=== PATIENT | male | born 1950 | race Caucasian/White ===

== ENCOUNTER 2020-01-29 09:22 | Outpatient (REF) | payer MEDICARE, OTHER, SELFPAY | END 2020-01-29 09:23 | disposition home or self-care (01) | LOC: HO.BBR 09:22 | PROVIDERS: PCP Nurse Practitioner Family; Visit Provider Internal Medicine Medical Oncology | DX: E83.110 Hereditary hemochromatosis (principal) | CPT/HCPCS: 99195 ==

== ENCOUNTER 2020-01-29 09:40 | Outpatient (REF) | payer MEDICARE, OTHER, SELFPAY | END 2020-01-29 09:41 | disposition home or self-care (01) | LOC: HO.BBR 09:40 | PROVIDERS: Visit Provider Internal Medicine Medical Oncology | DX: E83.110 Hereditary hemochromatosis (principal) ==

== ENCOUNTER 2020-02-26 09:25 | Outpatient (REF) | payer MEDICARE, OTHER, SELFPAY | END 2020-02-26 09:26 | disposition home or self-care (01) | LOC: HO.BBR 09:25 | PROVIDERS: PCP Nurse Practitioner Family; Visit Provider Internal Medicine Medical Oncology | DX: E83.110 Hereditary hemochromatosis (principal) | CPT/HCPCS: 99195 ==

== ENCOUNTER 2020-03-02 09:18 | Outpatient (REF) | payer MEDICARE, OTHER, SELFPAY ==
--- NOTE | 2020-03-02 09:21 | CT_ITS ---
EXAMINATION: CT CHEST SCREENING CLINICAL INFORMATION: Lung cancer screening COMPARISON: Previous exams most recent January 2019 TECHNIQUE: Multidetector volumetric CT imaging of the chest is performed without contrast using low dose technique. Additional 2D coronal and sagittal reformatted images and axial 3D maximum intensity projection (MIP) images are generated on the CT workstation. This CT examination was performed using dose optimization techniques as appropriate, variously including the following: *Automated exposure control *Adjustment of mA and/or kV according to patient size (this includes techniques or standardized protocols for targeted exams where dose is matched to indication/reason for exam; i.e. extremities or head) *Use of iterative reconstruction technique DLP: 45 mGy-cm FINDINGS: LUNGS: There is evidence of emphysema. The small pulmonary nodules are stable, largest measuring 3 x 4 mm right lower lobe axial image 281 series 6. There are new clustered small nodules in the right lower lobe, largest measuring 3 mm axial image 413 series 6 and left lower lobe for example axial image 232 series 5. Clustered appearance favors airways disease. No other new pulmonary nodules are seen. There is improving atelectasis or small infiltrate in the inferior segment of the lingula. MEDIASTINUM: There is evidence of atherosclerotic disease with aortic and mild coronary artery calcification. The mediastinum is otherwise normal. PLEURA: There is no pleural effusion. No pleural mass or thickening. AXILLA: No lymphadenopathy. UPPER ABDOMEN: Unremarkable OSSEOUS STRUCTURES: There are degenerative changes of the spine. CT/CT lung screening IMPRESSION: Severe emphysema. New small clustered bilateral lower lobe pulmonary nodules with tree-in-bud appearance suggestive of an infectious or inflammatory process. Other small pulmonary nodules are stable. Improving atelectasis or airspace disease in the inferior segment of the lingula. Mild atherosclerotic disease and coronary artery calcification. ASSESSMENT: Lung-RADS category 2: Benign RECOMMENDATION: Annual low-dose chest CT follow-up recommended.
== END 2020-03-02 09:19 | disposition home or self-care (01) ==
LOC: HO.CT 09:18
PROVIDERS: Visit Provider Surgery
DX: Z12.2 Encounter for screening for malignant neoplasm of respiratory organs (principal); F17.210 Nicotine dependence, cigarettes, uncomplicated
CPT/HCPCS: 71250

== ENCOUNTER 2020-04-02 11:20 | Outpatient (REF) | payer MEDICARE, OTHER, SELFPAY ==
[2020-04-02 12:04] LABS: Influenza A PCR NEGATIVE (Negative); Influenza B PCR NEGATIVE (Negative); Resp Syncy Virus RNA Qual PCR NEGATIVE (Negative); SARS COV2 PCR INHOUSE NEGATIVE (Negative)
== END 2020-04-02 11:21 | disposition home or self-care (01) ==
LOC: HO.LAB 11:20
PROVIDERS: Visit Provider Nurse Practitioner Family
DX: R06.89 Other abnormalities of breathing (principal); R68.83 Chills (without fever); Z20.828 Contact with and (suspected) exposure to other viral communicable diseases
CPT/HCPCS: 0241U

== ENCOUNTER 2020-05-08 10:13 | Inpatient (IN) | payer MEDICARE, OTHER, SELFPAY ==
[2020-05-08] VITALS (12 sets, daily range): BP systolic 78–120; BP diastolic 32–71; PULSE 74–94; RESP 17–24; TEMP 36–37.1; O2SAT 90–100; BMI 22.3
--- NOTE | 2020-05-08 10:17 | ECG_ITS ---
Test Reason : SOB Blood Pressure : / mmHG Vent. Rate : 087 BPM Atrial Rate : 087 BPM P-R Int : 128 ms QRS Dur : 100 ms QT Int : 380 ms P-R-T Axes : 069 053 058 degrees QTc Int : 457 ms Normal sinus rhythm Normal ECG When compared with ECG of 24-AUG-2016 12:50, No significant change was found Referred By: Mary Givens Electronically Signed By:ANALI AGUILAR MD
--- NOTE | 2020-05-08 10:18 | XR_ITS ---
EXAMINATION: XR CHEST CLINICAL INFORMATION: AMS. COMPARISON: CT chest 03/02/2020 TECHNIQUE: Frontal view of the chest was obtained. FINDINGS: The lungs are well-inflated with the increased interstitial markings in both lungs and scattered patchy opacities as well. No confluent infiltrate or pleural effusion seen. Heart size and pulmonary vascularity is normal. No gross bony abnormality seen. XR/XR chest 1V IMPRESSION: Bilateral increase interstitial markings and patchy opacity suggestive of interstitial pneumonitis. No confluent infiltrate or pleural effusion seen.
--- NOTE | 2020-05-08 10:19 | ED.AMS ---
HPI - Altered Mental Status General Chief Complaint: Altered Mental Status Stated Complaint: stroke alert Time Seen by Provider: 05/08/20 10:17 Source: patient and EMS Mode of arrival: EMS Limitations: altered mental status History of Present Illness HPI narrative: EMS notes patient last seen well yesterday found by neighbor or caregiver in the recliner O2 sats were in 70s placed on NRB up to mid 90s, patient was diffusely weak, no known trauma, history not really well known per EMS MD complaint: altered mental status Onset (ago): unknown (last seen well yesterday) Timing confirmed by: caregiver Severity: severe Consistency of symptoms: constant Context: other (unknown) Associated symptoms: denies other symptoms Related Data Home Medications Medication Instructions Recorded Confirmed albuterol sulfate [ProAir HFA] 2 puff INHALATION Q6H PRN 05/08/20 05/08/20 aspirin 81 mg PO DAILY 05/08/20 05/08/20 cholecalciferol (vitamin D3) 50 mcg PO DAILY 05/08/20 05/08/20 [Vitamin D3] cyanocobalamin (vitamin B-12) 1,000 mcg PO DAILY 05/08/20 05/08/20 fluticasone propionate [Flovent] 2 puff INHALATION BID 05/08/20 05/08/20 folic acid 1 mg PO DAILY 05/08/20 05/08/20 omega [id number] oil [Fish Oil] 1 cap PO BID 05/08/20 05/08/20 tiotropium bromide [Spiriva 2 puff INHALATION DAILY 05/08/20 05/08/20 Respimat] Previous Rx's Medication Instructions Recorded atorvastatin 40 mg tablet 40 mg PO DAILY #30 tab 03/23/20 lisinopril 10 mg tablet 10 mg PO DAILY #90 tab 04/14/20 Allergies Allergy/AdvReac Type Severity Reaction Status Date / Time bee pollen [BEE STINGS] Allergy Unknown DIF Unverified 01/09/20 14:57 FBREATHING Review of Systems Review of Systems: ROS unable to be obtained due to altered mental status PMFSH Past Medical History Attestation statement: The following information was validated with the patient. Medical History (Updated 05/08/20 @ 14:20 by Mary Givens DO) COPD (chronic obstructive pulmonary disease) ETOH abuse Hemochromatosis Liver cancer Social History Social History (Updated 05/08/20 @ 10:31 by Mary Givens DO) Alcohol intake: current Smoking Status: Current every day smoker Use of substances other than those prescribed or required for medical reasons: Unknown Advance Directives: No Advance Directives Information Provided: No Physical Exam Vital Signs: Vital Signs: Last Vital Signs Temp 98.7 F 05/08/20 13:11 Pulse 76 05/08/20 14:27 Resp 18 05/08/20 14:27 BP 106/44 L 05/08/20 14:27 Pulse Ox 99 05/08/20 14:27 Body Mass Index 22.3 Appearance: Somnolent, disheveled, diffuse weak, confused, moderate acute distress. Eyes: Pupils equal, round and reactive to light. yellowing of sclera ENT: Pharynx very dry Neck: Normal inspection. Neck supple. CVS: Normal heart rate and rhythm. Pulses normal. Respiratory: Moderate respiratory distress peripheral cyanosis. Breath sounds decreased with diffuse wheezes Abdomen: Soft and non-tender. Skin: Skin warm and dry. Normal skin color. Normal skin turgor. Extremities: No lower extremity edema. No calf ttp Neuro: Diffusely weak, opens eyes to voice, squeezed hands, nonverbal No motor deficit. No sensory deficit. Course Course Course Narrative: elevated CO no baseline and Ph is compensated at this time no priors will place on bipap to see if this improves his status empiric zosyn and 30cc/kg bolus ordered fluids infusing, will take off bipap and recheck ABG he seems somewhat more responsive BP 107/71 Pepito does seem to be responding better, ICU Dr. Arias has seen the patient recommends diamox given low Na will discuss with nephrology Na only 125 will admit to medicine, patient still not fully at baseline, no acute findings in chest or UA - no call back from Nephrology discussed with Dr. Jones - seems to be improving at this time, no further recommendations at this time, repeat labs MDM - Altered Mental Status MDM Narrative Medical decision making narrative: 69 yo male with COPD, HCC unsure of status but per Onc notes seems to be stable, last seen yesterday c/o AMS - he was hypoxic on arrival, no obvious trauma, likely FTT and patient is unkempt and disheveled, at this time will need labs, CT head for ICH, ammonia, ABG for CO2 retention, IV steroids, neb treatment, CXR, anticipate admission Lab Data Result diagrams: 05/08/20 10:56 05/08/20 13:51 Labs: Lab Results 05/08/20 05/08/20 05/08/20 Range/Units 10:25 10:26 10:26 WBC (4.8-10.8) X10*3/uL RBC (4.60-5.80) X10*6/uL Hgb (14.0-18.0) g/dl Hct (42-52) % MCV (80-98) fL MCH (27.0-33.0) pg MCHC (31.0-36.0) g/dl RDW (11.0-16.0) % Plt Count (160-400) X10*3/uL MPV (9.4-12.4) fL Immature Gran % (Auto) (0.0-0.4) % Neut % (Auto) (45-73) % Lymph % (Auto) (20-40) % [place]ferro % (Auto) (2-11) % Eos % (Auto) (0-4) % Baso % (Auto) (0-2) % Lymph # (Auto) (1.2-4.9) X10*3/uL [place]ferro # (Auto) (0.1-1.2) X10*3/uL Eos # (Auto) (0.0-0.4) X10*3/uL Baso # (Auto) (0.0-0.2) X10*3/uL Abs Immat Gran (auto) (0.00-0.03) X10*3/uL Absolute Neuts (auto) (2.0-8.3) X10*3/uL Absolute Nucleated RBC (0.0-0.012) X10*3/uL Nucleated RBC % (auto) (0.0-0.2) /100WBC PT (10.8-13.0) SEC INR (0.9-1.1) APTT (24.1-38.0) SEC ABG pH (7.35-7.45) ABG pCO2 (32-45) mmHg ABG pO2 (83-108) mmHg ABG HCO3 (22-26) mmol/L ABG O2 Saturation % ABG Base Excess Oxygen Given Sodium (135-145) mmol/L Potassium (3.3-5.1) mmol/l Chloride (96-108) mmol/L Carbon Dioxide (22-29) mmol/L Anion Gap (12-20) BUN (9-16) mg/dL Creatinine (0.5-1.4) mg/dL Estim Creat Clear Calc Estimated GFR Random Glucose (60-115) mg/dL Lactic Acid (0.5-2.0) mmol/L Calcium (8.4-10.2) mg/dL Magnesium (1.6-2.6) mg/dL Ferritin (20-250) ng/mL Total Bilirubin (0.0-1.0) mg/dL Direct Bilirubin (0.0-0.5) mg/dL AST (5-37) U/L ALT (0-40) U/L Alkaline Phosphatase (39-117) U/L Ammonia 34 (13-55) umol/L Lactate Dehydrogenase (118-273) U/L Total Creatine Kinase (38-174) U/L Troponin I High Sens 12.5 (<3.5-35.0) ng/L B-Natriuretic Peptide 31 (<100) pg/mL Total Protein (6.5-8.0) g/dL Albumin (3.5-5.0) g/dL Lipase (8-78) U/L Procalcitonin ng/mL TSH (0.32-4.0) uIU/mL Urine Color Urine Appearance Urine pH (5.0-8.0) Ur Specific Wallace (1.005-1.025) Urine Protein (NEG-TRACE) MG/DL Urine Glucose (UA) (NEG) MG/DL Urine Ketones (NEG) MG/DL Urine Blood (NEG) Urine Nitrite (NEG) Ur Leukocyte Esterase (NEG) Salicylates (15-30) mg/dL Urine Opiates Screen (Not Detect) Ur Barbiturates Screen (Not Detect) Ur Phencyclidine Scrn (Not Detect) Ur Amphetamines Screen (Not Detect) U Benzodiazepines Scrn (Not Detect) Urine Cocaine Screen (Not Detect) U Marijuana (THC) Screen (Not Detect) Ethyl Alcohol mg/dL COVID-19 (RAHUL) (Negative) COVID-19 Clin Com 05/08/20 05/08/20 05/08/20 Range/Units 10:26 10:26 10:28 WBC (4.8-10.8) X10*3/uL RBC (4.60-5.80) X10*6/uL Hgb (14.0-18.0) g/dl Hct (42-52) % MCV (80-98) fL MCH (27.0-33.0) pg MCHC (31.0-36.0) g/dl RDW (11.0-16.0) % Plt Count (160-400) X10*3/uL MPV (9.4-12.4) fL Immature Gran % (Auto) (0.0-0.4) % Neut % (Auto) (45-73) % Lymph % (Auto) (20-40) % [place]ferro % (Auto) (2-11) % Eos % (Auto) (0-4) % Baso % (Auto) (0-2) % Lymph # (Auto) (1.2-4.9) X10*3/uL [place]ro # (Auto) (0.1-1.2) X10*3/uL Eos # (Auto) (0.0-0.4) X10*3/uL Baso # (Auto) (0.0-0.2) X10*3/uL Abs Immat Gran (auto) (0.00-0.03) X10*3/uL Absolute Neuts (auto) (2.0-8.3) X10*3/uL Absolute Nucleated RBC (0.0-0.012) X10*3/uL Nucleated RBC % (auto) (0.0-0.2) /100WBC PT 11.5 (10.8-13.0) SEC INR 1.0 (0.9-1.1) APTT 25.4 (24.1-38.0) SEC ABG pH (7.35-7.45) ABG pCO2 (32-45) mmHg ABG pO2 (83-108) mmHg ABG HCO3 (22-26) mmol/L ABG O2 Saturation % ABG Base Excess Oxygen Given Sodium (135-145) mmol/L Potassium (3.3-5.1) mmol/l Chloride (96-108) mmol/L Carbon Dioxide (22-29) mmol/L Anion Gap (12-20) BUN (9-16) mg/dL Creatinine (0.5-1.4) mg/dL Estim Creat Clear Calc Estimated GFR Random Glucose (60-115) mg/dL Lactic Acid 1.0 (0.5-2.0) mmol/L Calcium (8.4-10.2) mg/dL Magnesium (1.6-2.6) mg/dL Ferritin (20-250) ng/mL Total Bilirubin (0.0-1.0) mg/dL Direct Bilirubin (0.0-0.5) mg/dL AST (5-37) U/L ALT (0-40) U/L Alkaline Phosphatase (39-117) U/L Ammonia (13-55) umol/L Lactate Dehydrogenase (118-273) U/L Total Creatine Kinase (38-174) U/L Troponin I High Sens (<3.5-35.0) ng/L B-Natriuretic Peptide (<100) pg/mL Total Protein (6.5-8.0) g/dL Albumin (3.5-5.0) g/dL Lipase (8-78) U/L Procalcitonin 0.05 ng/mL TSH (0.32-4.0) uIU/mL Urine Color Urine Appearance Urine pH (5.0-8.0) Ur Specific Wallace (1.005-1.025) Urine Protein (NEG-TRACE) MG/DL Urine Glucose (UA) (NEG) MG/DL Urine Ketones (NEG) MG/DL Urine Blood (NEG) Urine Nitrite (NEG) Ur Leukocyte Esterase (NEG) Salicylates (15-30) mg/dL Urine Opiates Screen (Not Detect) Ur Barbiturates Screen (Not Detect) Ur Phencyclidine Scrn (Not Detect) Ur Amphetamines Screen (Not Detect) U Benzodiazepines Scrn (Not Detect) Urine Cocaine Screen (Not Detect) U Marijuana (THC) Screen (Not Detect) Ethyl Alcohol mg/dL COVID-19 (RAHUL) (Negative) COVID-19 Clin Com 05/08/20 05/08/20 05/08/20 Range/Units 10:33 10:39 10:56 WBC 7.1 (4.8-10.8) X10*3/uL RBC 3.91 L (4.60-5.80) X10*6/uL Hgb 13.2 L (14.0-18.0) g/dl Hct 36.0 L (42-52) % MCV 92.1 (80-98) fL MCH 33.8 H (27.0-33.0) pg MCHC 36.7 H (31.0-36.0) g/dl RDW 13.2 (11.0-16.0) % Plt Count 163 (160-400) X10*3/uL MPV 9.4 (9.4-12.4) fL Immature Gran % (Auto) 1.5 H (0.0-0.4) % Neut % (Auto) 70.5 (45-73) % Lymph % (Auto) 14.9 L (20-40) % [place]ferro % (Auto) 12.7 H (2-11) % Eos % (Auto) 0.1 (0-4) % Baso % (Auto) 0.3 (0-2) % Lymph # (Auto) 1.1 L (1.2-4.9) X10*3/uL [place]ro # (Auto) 0.9 (0.1-1.2) X10*3/uL Eos # (Auto) 0.0 (0.0-0.4) X10*3/uL Baso # (Auto) 0.0 (0.0-0.2) X10*3/uL Abs Immat Gran (auto) 0.11 H (0.00-0.03) X10*3/uL Absolute Neuts (auto) 5.0 (2.0-8.3) X10*3/uL Absolute Nucleated RBC 0.000 (0.0-0.012) X10*3/uL Nucleated RBC % (auto) 0.0 (0.0-0.2) /100WBC PT (10.8-13.0) SEC INR (0.9-1.1) APTT (24.1-38.0) SEC ABG pH 7.49 H (7.35-7.45) ABG pCO2 60 H* (32-45) mmHg ABG pO2 68 L (83-108) mmHg ABG HCO3 46 H (22-26) mmol/L ABG O2 Saturation 89.0 % ABG Base Excess 19.7 Oxygen Given ROOM AIR Sodium (135-145) mmol/L Potassium (3.3-5.1) mmol/l Chloride (96-108) mmol/L Carbon Dioxide (22-29) mmol/L Anion Gap (12-20) BUN (9-16) mg/dL Creatinine (0.5-1.4) mg/dL Estim Creat Clear Calc Estimated GFR Random Glucose (60-115) mg/dL Lactic Acid (0.5-2.0) mmol/L Calcium (8.4-10.2) mg/dL Magnesium (1.6-2.6) mg/dL Ferritin (20-250) ng/mL Total Bilirubin (0.0-1.0) mg/dL Direct Bilirubin (0.0-0.5) mg/dL AST (5-37) U/L ALT (0-40) U/L Alkaline Phosphatase (39-117) U/L Ammonia (13-55) umol/L Lactate Dehydrogenase (118-273) U/L Total Creatine Kinase (38-174) U/L Troponin I High Sens (<3.5-35.0) ng/L B-Natriuretic Peptide (<100) pg/mL Total Protein (6.5-8.0) g/dL Albumin (3.5-5.0) g/dL Lipase (8-78) U/L Procalcitonin ng/mL TSH (0.32-4.0) uIU/mL Urine Color Urine Appearance Urine pH (5.0-8.0) Ur Specific Wallace (1.005-1.025) Urine Protein (NEG-TRACE) MG/DL Urine Glucose (UA) (NEG) MG/DL Urine Ketones (NEG) MG/DL Urine Blood (NEG) Urine Nitrite (NEG) Ur Leukocyte Esterase (NEG) Salicylates (15-30) mg/dL Urine Opiates Screen (Not Detect) Ur Barbiturates Screen (Not Detect) Ur Phencyclidine Scrn (Not Detect) Ur Amphetamines Screen (Not Detect) U Benzodiazepines Scrn (Not Detect) Urine Cocaine Screen (Not Detect) U Marijuana (THC) Screen (Not Detect) Ethyl Alcohol mg/dL COVID-19 (RAHUL) Negative (Negative) COVID-19 Clin Com See Note 01/15/21 01/15/21 01/15/21 Range/Units 10:56 10:56 11:22 WBC (4.8-10.8) X10*3/uL RBC (4.60-5.80) X10*6/uL Hgb (14.0-18.0) g/dl Hct (42-52) % MCV (80-98) fL MCH (27.0-33.0) pg MCHC (31.0-36.0) g/dl RDW (11.0-16.0) % Plt Count (160-400) X10*3/uL MPV (9.4-12.4) fL Immature Gran % (Auto) (0.0-0.4) % Neut % (Auto) (45-73) % Lymph % (Auto) (20-40) % [place]ro % (Auto) (2-11) % Eos % (Auto) (0-4) % Baso % (Auto) (0-2) % Lymph # (Auto) (1.2-4.9) X10*3/uL [place] # (Auto) (0.1-1.2) X10*3/uL Eos # (Auto) (0.0-0.4) X10*3/uL Baso # (Auto) (0.0-0.2) X10*3/uL Abs Immat Gran (auto) (0.00-0.03) X10*3/uL Absolute Neuts (auto) (2.0-8.3) X10*3/uL Absolute Nucleated RBC (0.0-0.012) X10*3/uL Nucleated RBC % (auto) (0.0-0.2) /100WBC PT (10.8-13.0) SEC INR (0.9-1.1) APTT (24.1-38.0) SEC ABG pH (7.35-7.45) ABG pCO2 (32-45) mmHg ABG pO2 (83-108) mmHg ABG HCO3 (22-26) mmol/L ABG O2 Saturation % ABG Base Excess Oxygen Given Sodium 122 L (135-145) mmol/L Potassium 3.5 (3.3-5.1) mmol/l Chloride 69 L (96-108) mmol/L Carbon Dioxide 38 H (22-29) mmol/L Anion Gap 19 (12-20) BUN 32 H (9-16) mg/dL Creatinine 0.77 (0.5-1.4) mg/dL Estim Creat Clear Calc 82.7 Estimated GFR > 60 Random Glucose 100 (60-115) mg/dL Lactic Acid (0.5-2.0) mmol/L Calcium 9.2 (8.4-10.2) mg/dL Magnesium 1.9 (1.6-2.6) mg/dL Ferritin 504 H Cancelled (20-250) ng/mL Total Bilirubin 1.4 H (0.0-1.0) mg/dL Direct Bilirubin 0.8 H (0.0-0.5) mg/dL AST 63 H (5-37) U/L ALT 37 (0-40) U/L Alkaline Phosphatase 62 (39-117) U/L Ammonia (13-55) umol/L Lactate Dehydrogenase 247 (118-273) U/L Total Creatine Kinase 634 H (38-174) U/L Troponin I High Sens (<3.5-35.0) ng/L B-Natriuretic Peptide (<100) pg/mL Total Protein 6.5 (6.5-8.0) g/dL Albumin 3.9 (3.5-5.0) g/dL Lipase 33 Cancelled (8-78) U/L Procalcitonin ng/mL TSH 0.94 (0.32-4.0) uIU/mL Urine Color Urine Appearance Urine pH (5.0-8.0) Ur Specific Wallace (1.005-1.025) Urine Protein (NEG-TRACE) MG/DL Urine Glucose (UA) (NEG) MG/DL Urine Ketones (NEG) MG/DL Urine Blood (NEG) Urine Nitrite (NEG) Ur Leukocyte Esterase (NEG) Salicylates < 5.0 L (15-30) mg/dL Urine Opiates Screen (Not Detect) Ur Barbiturates Screen (Not Detect) Ur Phencyclidine Scrn (Not Detect) Ur Amphetamines Screen (Not Detect) U Benzodiazepines Scrn (Not Detect) Urine Cocaine Screen (Not Detect) U Marijuana (THC) Screen (Not Detect) Ethyl Alcohol < 10 mg/dL COVID-19 (RAHUL) (Negative) COVID-19 Clin Com 05/08/20 05/08/20 05/08/20 Range/Units 11:22 12:54 13:09 WBC (4.8-10.8) X10*3/uL RBC (4.60-5.80) X10*6/uL Hgb (14.0-18.0) g/dl Hct (42-52) % MCV (80-98) fL MCH (27.0-33.0) pg MCHC (31.0-36.0) g/dl RDW (11.0-16.0) % Plt Count (160-400) X10*3/uL MPV (9.4-12.4) fL Immature Gran % (Auto) (0.0-0.4) % Neut % (Auto) (45-73) % Lymph % (Auto) (20-40) % [place]ferro % (Auto) (2-11) % Eos % (Auto) (0-4) % Baso % (Auto) (0-2) % Lymph # (Auto) (1.2-4.9) X10*3/uL [place]ferro # (Auto) (0.1-1.2) X10*3/uL Eos # (Auto) (0.0-0.4) X10*3/uL Baso # (Auto) (0.0-0.2) X10*3/uL Abs Immat Gran (auto) (0.00-0.03) X10*3/uL Absolute Neuts (auto) (2.0-8.3) X10*3/uL Absolute Nucleated RBC (0.0-0.012) X10*3/uL Nucleated RBC % (auto) (0.0-0.2) /100WBC PT (10.8-13.0) SEC INR (0.9-1.1) APTT (24.1-38.0) SEC ABG pH 7.41 (7.35-7.45) ABG pCO2 59 H (32-45) mmHg ABG pO2 86 (83-108) mmHg ABG HCO3 37 H (22-26) mmol/L ABG O2 Saturation 94.0 % ABG Base Excess 10.9 Oxygen Given 2 L Sodium (135-145) mmol/L Potassium (3.3-5.1) mmol/l Chloride (96-108) mmol/L Carbon Dioxide (22-29) mmol/L Anion Gap (12-20) BUN (9-16) mg/dL Creatinine (0.5-1.4) mg/dL Estim Creat Clear Calc Estimated GFR Random Glucose (60-115) mg/dL Lactic Acid (0.5-2.0) mmol/L Calcium (8.4-10.2) mg/dL Magnesium (1.6-2.6) mg/dL Ferritin Cancelled (20-250) ng/mL Total Bilirubin (0.0-1.0) mg/dL Direct Bilirubin (0.0-0.5) mg/dL AST (5-37) U/L ALT (0-40) U/L Alkaline Phosphatase (39-117) U/L Ammonia (13-55) umol/L Lactate Dehydrogenase (118-273) U/L Total Creatine Kinase (38-174) U/L Troponin I High Sens (<3.5-35.0) ng/L B-Natriuretic Peptide (<100) pg/mL Total Protein (6.5-8.0) g/dL Albumin (3.5-5.0) g/dL Lipase Cancelled (8-78) U/L Procalcitonin ng/mL TSH (0.32-4.0) uIU/mL Urine Color HARVEY Urine Appearance CLEAR Urine pH 6.0 (5.0-8.0) Ur Specific Wallace 1.020 (1.005-1.025) Urine Protein TRACE (NEG-TRACE) MG/DL Urine Glucose (UA) NEG (NEG) MG/DL Urine Ketones 15 (NEG) MG/DL Urine Blood NEG (NEG) Urine Nitrite NEG (NEG) Ur Leukocyte Esterase NEG (NEG) Salicylates (15-30) mg/dL Urine Opiates Screen (Not Detect) Ur Barbiturates Screen (Not Detect) Ur Phencyclidine Scrn (Not Detect) Ur Amphetamines Screen (Not Detect) U Benzodiazepines Scrn (Not Detect) Urine Cocaine Screen (Not Detect) U Marijuana (THC) Screen (Not Detect) Ethyl Alcohol mg/dL COVID-19 (RAHUL) (Negative) COVID-19 Clin Com 05/08/20 05/08/20 Range/Units 13:09 13:51 WBC (4.8-10.8) X10*3/uL RBC (4.60-5.80) X10*6/uL Hgb (14.0-18.0) g/dl Hct (42-52) % MCV (80-98) fL MCH (27.0-33.0) pg MCHC (31.0-36.0) g/dl RDW (11.0-16.0) % Plt Count (160-400) X10*3/uL MPV (9.4-12.4) fL Immature Gran % (Auto) (0.0-0.4) % Neut % (Auto) (45-73) % Lymph % (Auto) (20-40) % [place]ferro % (Auto) (2-11) % Eos % (Auto) (0-4) % Baso % (Auto) (0-2) % Lymph # (Auto) (1.2-4.9) X10*3/uL [place]ro # (Auto) (0.1-1.2) X10*3/uL Eos # (Auto) (0.0-0.4) X10*3/uL Baso # (Auto) (0.0-0.2) X10*3/uL Abs Immat Gran (auto) (0.00-0.03) X10*3/uL Absolute Neuts (auto) (2.0-8.3) X10*3/uL Absolute Nucleated RBC (0.0-0.012) X10*3/uL Nucleated RBC % (auto) (0.0-0.2) /100WBC PT (10.8-13.0) SEC INR (0.9-1.1) APTT (24.1-38.0) SEC ABG pH (7.35-7.45) ABG pCO2 (32-45) mmHg ABG pO2 (83-108) mmHg ABG HCO3 (22-26) mmol/L ABG O2 Saturation % ABG Base Excess Oxygen Given Sodium 125 L (135-145) mmol/L Potassium 3.6 (3.3-5.1) mmol/l Chloride 77 L (96-108) mmol/L Carbon Dioxide 27 (22-29) mmol/L Anion Gap 25 H (12-20) BUN 29 H (9-16) mg/dL Creatinine 0.81 (0.5-1.4) mg/dL Estim Creat Clear Calc 78.6 Estimated GFR > 60 Random Glucose 111 (60-115) mg/dL Lactic Acid (0.5-2.0) mmol/L Calcium 8.4 D (8.4-10.2) mg/dL Magnesium (1.6-2.6) mg/dL Ferritin (20-250) ng/mL Total Bilirubin (0.0-1.0) mg/dL Direct Bilirubin (0.0-0.5) mg/dL AST (5-37) U/L ALT (0-40) U/L Alkaline Phosphatase (39-117) U/L Ammonia (13-55) umol/L Lactate Dehydrogenase (118-273) U/L Total Creatine Kinase (38-174) U/L Troponin I High Sens (<3.5-35.0) ng/L B-Natriuretic Peptide (<100) pg/mL Total Protein (6.5-8.0) g/dL Albumin (3.5-5.0) g/dL Lipase (8-78) U/L Procalcitonin ng/mL TSH (0.32-4.0) uIU/mL Urine Color Urine Appearance Urine pH (5.0-8.0) Ur Specific Wallace (1.005-1.025) Urine Protein (NEG-TRACE) MG/DL Urine Glucose (UA) (NEG) MG/DL Urine Ketones (NEG) MG/DL Urine Blood (NEG) Urine Nitrite (NEG) Ur Leukocyte Esterase (NEG) Salicylates (15-30) mg/dL Urine Opiates Screen Not Detected (Not Detect) Ur Barbiturates Screen Not Detected (Not Detect) Ur Phencyclidine Scrn Not Detected (Not Detect) Ur Amphetamines Screen Not Detected (Not Detect) U Benzodiazepines Scrn Not Detected (Not Detect) Urine Cocaine Screen Not Detected (Not Detect) U Marijuana (THC) Screen Not Detected (Not Detect) Ethyl Alcohol mg/dL COVID-19 (RAHUL) (Negative) COVID-19 Clin Com ECG Data ECG #1: Attestation: I personally reviewed and interpreted this ECG as follows: ECG interpretation date: 05/08/20 ECG interpretation time: 10:54 Interpretation: Rate: 87 Rhythm: NSR Carson: normal Normal P waves. Normal PREMA. Normal QRS complex. ST T wave : normal no SILAS qTC: normal prior studies: no acute ischemia The study has been interpreted contemporaneously by me. . Critical Care Time Critical Care Time Critical Care Time: Yes Total Critical Care Time: 60 Attestation: 2L of IVF, medical consults, bipap I attest to this time spent taking care of the patient Discharge Plan Discharge Clinical Impression: Acute alteration in mental status, Acute hyponatremia, Hypoxia Patient Disposition: Admitted As Inpatient
[2020-05-08 10:41] LABS: Prothrombin Time 11.5 SEC (10.8-13.0)
[2020-05-08] MEDS: Albuterol Sulfate (0.083%) 2.5 MG/3 ML VIAL.NEB 5 MG INHALE (10:43)
[2020-05-08 10:44] LABS: Partial Thromboplastin Time 25.4 SEC (24.1-38.0)
[2020-05-08 10:46] LABS: Pt Ventilation O2% ROOM AIR
[2020-05-08 10:54] LABS: Base Excess ABG 19.7; HCO3 ABG 46 mmol/L (22-26); PO2 ABG 68 mmHg (83-108); pH ABG 7.49 (7.35-7.45)
[2020-05-08 10:55] LABS: ABG PCO2 60 mmHg (32-45)
[2020-05-08 11:01] LABS: MANUAL DIFF FLAG NO
[2020-05-08 11:03] LABS: Ammonia 34 umol/L (13-55)
[2020-05-08 11:05] LABS: Basophils Percent Auto 0.3 % (0-2); Eosinophils Percent Auto 0.1 % (0-4); Hemoglobin 13.2 g/dl (14.0-18.0); Imm Gran Abs Auto 0.11 X10*3/uL (0.00-0.03); Imm Gran Pct Auto 1.5 % (0.0-0.4); Lymphocytes Absolute Auto 1.1 X10*3/uL (1.2-4.9); Lymphocytes Percent Auto 14.9 % (20-40); Mean Corpuscular HGB Conc 36.7 g/dl (31.0-36.0); Mean Corpuscular Hemoglobin 33.8 pg (27.0-33.0); Mean Corpuscular Volume 92.1 fL (80-98); Mean Platelet Volume 9.4 fL (9.4-12.4); Monocytes Absolute Auto 0.9 X10*3/uL (0.1-1.2); Monocytes Percent Auto 12.7 % (2-11); Neutrophils Percent Auto 70.5 % (45-73); Platelet Count 163 X10*3/uL (160-400); Red Blood Count 3.91 X10*6/uL (4.60-5.80); Red Cell Distribution Width 13.2 % (11.0-16.0); White Blood Count 7.1 X10*3/uL (4.8-10.8)
[2020-05-08 11:10] LABS: COVID-19 Test Negative (Negative)
[2020-05-08 11:14] LABS: B Type Natriuretic Peptide 31 pg/mL (<100)
[2020-05-08 11:14] LABS: Troponin-I High Sensitivity 12.5 ng/L (<3.5-35.0)
[2020-05-08] MEDS: methylPREDNISolone Sod Succ/PF 125 MG/2 ML VIAL 60 MG IVPUSH (11:25)
[2020-05-08] MEDS: 0.9 % Sodium Chloride 1,000 ML 999 ML IVCONT ×2 (11:26)
--- NOTE | 2020-05-08 11:33 | CT_ITS ---
EXAMINATION: CT HEAD, CHEST, ABDOMEN PELVIS WITHOUT CONTRAST. CLINICAL INFORMATION: Altered mental syndrome. Confusion. COMPARISON: CT chest, abdomen and pelvis 10/19/2017. TECHNIQUE: 5 mm thin axial and reformatted 2 mm thin sagittal and coronal images of brain were obtained. Subsequently axial 5 mm thin and reformatted 3 mm thin sagittal and coronal images of chest, abdomen and pelvis were obtained. DLP [id number] FINDINGS: BRAIN: There is no acute intra-axial, extra-axial bleed, masses or midline shift. There is no acute infarction in evolution. There is no edema. Both lateral ventricles are enlarged but symmetrical. There is diffuse peribronchial hypodensity in both cerebral hemispheres suggestive of chronic small vessel ischemic changes. Bone windows reveal no calvarial abnormality. There is no scalp soft tissue abnormality either. Bilateral paranasal sinuses and bilateral mastoid sinuses are well-aerated. No calvarial abnormality seen. There is no scalp soft tissue abnormality. CHEST: There is mild emphysematous changes of both lungs with the bilateral apical bullae and cysts. There is a patchy reticular opacity dependent segments of both lower lobe. Mild atelectatic changes as seen in the lingula. No pulmonary nodule or large mass seen. The thyroid lobes are symmetrical and normal. The central trachea and the bronchi are widely patent. There is atherosclerotic changes of thoracic aorta without aneurysmal dilatation. There are coronary artery calcifications. The heart size is normal. No pericardial effusion seen. No abnormal size mediastinal or hilar lymph nodes seen. There is no pleural effusion, thickening or calcification. The axilla and the chest wall appears unremarkable. ABDOMEN AND PELVIS: The liver, spleen, pancreas and bilateral adrenal glands are unremarkable. The gallbladder is distended but no radiopaque gallstones or wall thickening seen. Both kidneys are normal size, shape and position. No radiopaque renal calculi or hydronephrosis seen. Is atherosclerotic changes of abdominal aorta without aneurysmal dilatation. No retroperitoneal mass or lymphadenopathy seen. Scattered gas, diverticuli and stool seen in the colon slightly more prominent in the sigmoid region. The small bowel loops are normal caliber. The appendix is not visualized with certainty. No free air free fluid seen. Abdominal wall appears unremarkable. Imaging through the pelvis reveals normal size prostate gland. The bladder is unremarkable. No abnormal pelvic lymph nodes seen. Bone windows reveal mild ventral spondylosis thoracic and lumbar spine. No fracture or lytic process seen. CT/CT abdomen pelvis wo con IMPRESSION: No acute intracranial process seen. Age-related cerebral volume loss with chronic small vessel ischemic changes. There is no acute process seen in the chest or the abdomen. Diffuse emphysema with bullous changes in both upper lobes. Nonspecific minimal patchy reticular opacities in both lower lobes. No confluent infiltrate, pleural effusion or pneumothorax seen. Mild constipation. Sigmoid diverticulosis without diverticulitis.
[2020-05-08 11:37] LABS: Ethanol < 10 mg/dL
[2020-05-08 12:02] LABS: Ferritin 504 ng/mL (20-250)
[2020-05-08] MEDS: Piperacillin Sodium/Tazobactam 3.375 GM in 0.9 % Sodium Chloride 50 ML IV (12:05)
[2020-05-08 12:06] LABS: Alanine Aminotransferase 37 U/L (0-40); Albumin Level 3.9 g/dL (3.5-5.0); Alkaline Phosphatase 62 U/L (39-117); Anion Gap 19 (12-20); Aspartate Amino Transferase 63 U/L (5-37); Bilirubin Direct 0.8 mg/dL (0.0-0.5); Bilirubin Total 1.4 mg/dL (0.0-1.0); Blood Urea Nitrogen 32 mg/dL (9-16); Calcium 9.2 mg/dL (8.4-10.2); Carbon Dioxide 38 mmol/L (22-29); Chloride 69 mmol/L (96-108); Creatinine Clr Calc Pharmacy 82.7; Estimated Glomerular Filt Rate > 60; Glucose Random 100 mg/dL (60-115); Lactate Dehydrogenase 247 U/L (118-273); Lipase 33 U/L (8-78); Magnesium 1.9 mg/dL (1.6-2.6); Potassium 3.5 mmol/l (3.3-5.1); Sodium 122 mmol/L (135-145); Total Protein 6.5 g/dL (6.5-8.0)
[2020-05-08 12:23] LABS: Procalcitonin 0.05 ng/mL
--- NOTE | 2020-05-08 12:35 | PC.NURSE ---
PTS ex called, wanting information was instructed that we could not give her any information at this time due to pt unable to give concent to speak with her. She continued to ask questions with answer sorry we cannot give you any information at this time and she was not willing to accept that answer so she was informed that I would be ending the call and she was welcome to reach out to family so we could get permission to speak with her.
--- NOTE | 2020-05-08 12:44 | PC.NURSE ---
Pt is a difficult iv stick. successful in obtaining most but not all labs. Able to establish 2 iv lines. Transported to and from CT.
[2020-05-08 12:58] LABS: Pt Ventilation O2% 2 L
[2020-05-08 13:09] LABS: ABG PCO2 59 mmHg (32-45); Base Excess ABG 10.9; HCO3 ABG 37 mmol/L (22-26); PO2 ABG 86 mmHg (83-108); pH ABG 7.41 (7.35-7.45)
--- NOTE | 2020-05-08 13:17 | MHC.CM.ED ---
Received telephone call from patient's ex-, Otilia Nelson. She is patient's emergency contact. She can be reached via telephone at [phone]. Patient lives in an in-law apartment that was made for him by Otilia. He is typically independent. However, per Otilia for the past couple of days patient has been not performing his ADLs or taking care of himself. She feels this may be related to him forgetting. Dr Givens aware. Otilia aware patient will be admitted. Alex Thompson is his PCP. Continue to monitor for d/c needs.
[2020-05-08 13:50] LABS: Glucose Urine UA NEG (NEG); Leukocyte Esterase Urine NEG (NEG); Nitrite Urine NEG (NEG); Urine Blood NEG (NEG); Urine Ketones 15 MG/DL (NEG); Urine Protein TRACE MG/DL (NEG-TRACE)
[2020-05-08 13:51] LABS: Appearance Urine CLEAR; Color Urine AMBER
[2020-05-08 14:06] LABS: Salicylate < 5.0 mg/dL (15-30)
[2020-05-08 14:19] LABS: Amphetamine Screen Urine Not Detected (Not Detect); Barbiturates, Urine Not Detected (Not Detect); Benzodiazepines Screen Urine Not Detected (Not Detect); Cannabinoid Screen Urine Not Detected (Not Detect); Cocaine Screen Urine Not Detected (Not Detect); Opiate Screen Urine Not Detected (Not Detect); Phencyclidine Screen Urine Not Detected (Not Detect)
[2020-05-08 14:20] LABS: Anion Gap 25 (12-20); Blood Urea Nitrogen 29 mg/dL (9-16); Calcium 8.4 mg/dL (8.4-10.2); Carbon Dioxide 27 mmol/L (22-29); Chloride 77 mmol/L (96-108); Creatinine Clr Calc Pharmacy 78.6; Estimated Glomerular Filt Rate > 60; Glucose Random 111 mg/dL (60-115); Potassium 3.6 mmol/l (3.3-5.1); Sodium 125 mmol/L (135-145)
[2020-05-08 14:26] LABS: Thyroid Stimulating Hormone 0.94 uIU/mL (0.32-4.0)
[2020-05-08 17:48] LABS: Pt Ventilation O2% 2 L
[2020-05-08 18:05] LABS: Base Excess ABG 18.4; HCO3 ABG 44 mmol/L (22-26); PO2 ABG 81 mmHg (83-108); pH ABG 7.47 (7.35-7.45)
[2020-05-08 18:10] LABS: ABG PCO2 60 mmHg (32-45)
--- NOTE | 2020-05-08 19:15 | PC.NURSE ---
PT RESTING IN STRETCHER ON MONITOR WITH A HR 74, PO 97%ON 2L NC. PT RESPONDS TO PAINFUL STIMULI, RESPIRATIONS N/L. SKIN W/D/P. PT AWAITING FOR GO TO FLOOR, FLOOR UNABLE TO TAKE REPORT AT THIS TIME AND WILL RETURN CALL. VS OBTAINED. WILL CONTINUE TO MONITOR PT.
--- NOTE | 2020-05-08 19:48 | PC.NURSE ---
LABS DRAWN TO LAB.
--- NOTE | 2020-05-08 19:56 | PC.NURSE ---
REPORT TO [facility] PT TO FLOOR IN STRETCHER AT THIS TIME. HLX 2 FLUSHES EASILY W/O RESISTENCE. BELONGINGS WITH PT TO FLOOR.
[2020-05-08 20:22] LABS: Anion Gap 15 (12-20); Blood Urea Nitrogen 25 mg/dL (9-16); Calcium 8.1 mg/dL (8.4-10.2); Carbon Dioxide 36 mmol/L (22-29); Chloride 79 mmol/L (96-108); Creatinine Clr Calc Pharmacy 92.3; Estimated Glomerular Filt Rate > 60; Glucose Random 156 mg/dL (60-115); Potassium 3.8 mmol/l (3.3-5.1); Sodium 126 mmol/L (135-145)
[2020-05-08] MEDS: Heparin Sodium,Porcine 5,000 UNIT/ML VIAL 5000 UNIT SUBCUT (21:25)
[2020-05-08] MEDS: Piperacillin Sodium/Tazobactam 2.25 GM in 0.9 % Sodium Chloride 50 ML IV (21:25)
[2020-05-08] MEDS: 0.9 % Sodium Chloride 500 ML 50 ML IV (21:26)
[2020-05-09] MEDS: Piperacillin Sodium/Tazobactam 2.25 GM in 0.9 % Sodium Chloride 50 ML IV ×4 (03:56→21:03)
[2020-05-09 04:00] VITALS: BP 125/60; PULSE 80; RESP 18; TEMP 36.8; O2SAT 98
[2020-05-09 07:06] LABS: Hemoglobin 11.1 g/dl (14.0-18.0); Imm Gran Abs Auto 0.05 X10*3/uL (0.00-0.03); Imm Gran Pct Auto 0.6 % (0.0-0.4); Lymphocytes Absolute Auto 0.4 X10*3/uL (1.2-4.9); Lymphocytes Percent Auto 4.7 % (20-40); MANUAL DIFF FLAG SCAN; Mean Corpuscular HGB Conc 35.8 g/dl (31.0-36.0); Mean Corpuscular Hemoglobin 33.1 pg (27.0-33.0); Mean Corpuscular Volume 92.5 fL (80-98); Mean Platelet Volume 9.9 fL (9.4-12.4); Monocytes Absolute Auto 0.7 X10*3/uL (0.1-1.2); Monocytes Percent Auto 8.6 % (2-11); Neutrophils Absolute Auto 7.2 X10*3/uL (2.0-8.3); Neutrophils Percent Auto 86.1 % (45-73); Platelet Count 160 X10*3/uL (160-400); Red Blood Count 3.35 X10*6/uL (4.60-5.80); Red Cell Distribution Width 13.5 % (11.0-16.0); SCAN SMEAR FLAG 1; White Blood Count 8.4 X10*3/uL (4.8-10.8)
[2020-05-09 07:35] LABS: Anion Gap 15 (12-20); Blood Urea Nitrogen 23 mg/dL (9-16); Calcium 8.4 mg/dL (8.4-10.2); Carbon Dioxide 39 mmol/L (22-29); Chloride 79 mmol/L (96-108); Creatinine Clr Calc Pharmacy 88.5; Estimated Glomerular Filt Rate > 60; Glucose Random 143 mg/dL (60-115); Potassium 3.3 mmol/l (3.3-5.1); Sodium 130 mmol/L (135-145)
[2020-05-09 07:39] LABS: SLIDE REVIEW VERIFIED
[2020-05-09 08:00] VITALS: BP 125/58; PULSE 82; RESP 22; TEMP 37; O2SAT 93
[2020-05-09 08:44] LABS: Magnesium 1.8 mg/dL (1.6-2.6)
[2020-05-09] MEDS: Cholecalciferol (Vitamin D3) 25 MCG TABLET 50 MCG PO (08:48)
[2020-05-09] MEDS: Folic Acid 1 MG TABLET PO (08:48)
[2020-05-09] MEDS: 0.9 % Sodium Chloride Flush 3 ML SYRINGE IVFLUSH (08:48)
[2020-05-09] MEDS: 0.9 % Sodium Chloride 1,000 ML 100 ML IVCONT ×2 (08:48→21:03)
[2020-05-09] MEDS: Atorvastatin Calcium 40 MG TABLET PO (08:49)
[2020-05-09] MEDS: Cyanocobalamin (Vitamin B-12) 1,000 MCG TABLET 1000 MCG PO (08:49)
[2020-05-09] MEDS: Aspirin Enteric Coated 81 MG TABLET.DR PO (08:49)
[2020-05-09] MEDS: Heparin Sodium,Porcine 5,000 UNIT/ML VIAL 5000 UNIT SUBCUT ×2 (08:56→21:02)
[2020-05-09] MEDS: Potassium Chloride Packet 20 MEQ PACKET 40 MEQ PO (10:34)
[2020-05-09] MEDS: LORazepam 2 MG/ML VIAL 0.5 MG IVPUSH (10:34)
[2020-05-09] MEDS: PHENobarbitaL sodium 130 MG/ML VIAL 213 MG IM (11:49)
[2020-05-09 12:00] VITALS: BP 110/54; PULSE 80; RESP 16; TEMP 36.1; O2SAT 95
--- NOTE | 2020-05-09 13:49 | MHC.CM.PN ---
Patient is here with AMS; CM spoke with S.O./Otilia at [phone]. Patient lives in an in law apartment connected to Otilia's house and he is functionally independent. Goal for dc is to return home and CM has initiated and will follow for dc planning. IMM addressed with Otilia and thev original will be mailed certified letter to her and a copy has been placed on the chart. Patient's PCP is the MD who took over Dr. Obando's Patients.
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
--- NOTE | 2020-05-09 13:53 | HO.PM.IMPN ---
Subjective Subjective Date of Service: 05/09/20 Interval History: Patient seen and examined at bedside Patient remains confused Patient was agitated and was hallucinating this morning Review of Systems ROS unable to be obtained due to confusion Neurologic Neurologic: Reports confusion Psychiatric Psychiatric: Reports confusion Physical Exam Vital Signs: Vital Signs: Last Vital Signs Temp 97.0 F 05/09/20 12:00 Pulse 80 05/09/20 12:00 Resp 16 05/09/20 12:00 BP 110/54 L 05/09/20 12:00 Pulse Ox 95 05/09/20 12:00 Body Mass Index 22.3 Const: General: no acute distress and confusion Orientation/consciousness: confusion Resp: Effort & Inspection: normal respiratory effort Cardio: Jugular venous distension: no JVD GI: Inspection: Yes normal to inspection Neuro: General: confusion Motor exam (neuro): 5/5 motor strength present throughout Objective Data Current Medications Generic Name Dose Route Start Last Admin Trade Name Freq PRN Reason Stop Dose Admin Acetaminophen 650 mg 05/08/20 17:28 Acetaminophen 325 Mg Tablet PO Q6H PRN Pain, Mild (Pain Scale 1-3) Albuterol Sulfate 2 puff 05/08/20 17:28 Albuterol Sulfate 90 Mcg 8 Gm Inhaler INHALE Q6H PRN Shortness Of Breath Or Wheezing Aspirin 81 mg 05/09/20 09:00 05/09/20 08:49 Aspirin Enteric Coated 81 Mg Tablet.Dr PO 81 mg DAILY FRANCHESCA Administration Atorvastatin Calcium 40 mg 05/09/20 09:00 05/09/20 08:49 Atorvastatin Calcium 40 Mg Tablet PO 40 mg DAILY FRANCHESCA Administration Cyanocobalamin 1,000 mcg 05/09/20 09:00 05/09/20 08:49 Cyanocobalamin (Vitamin B-12) 1,000 Mcg Tablet PO 1,000 mcg DAILY FRANCHESCA Administration Folic Acid 1 mg 05/09/20 09:00 05/09/20 08:48 Folic Acid 1 Mg Tablet PO 1 mg DAILY FRANCHESCA Administration Heparin Sodium (Porcine) 5,000 unit 05/08/20 22:00 05/09/20 08:56 Heparin Sodium,Porcine 5,000 Unit/Ml Vial SUBCUT 5,000 unit Q12H FRANCHESCA Administration Piperacillin Sod/Tazobactam 50 mls @ 100 mls/hr 05/08/20 21:00 05/09/20 09:24 Sod 2.25 gm/ Sodium Chloride IV Infused Q6H [facility] Infusion Sodium Chloride 1,000 mls @ 100 mls/hr 05/09/20 10:30 05/09/20 10:26 Ns IVCONT Not Given .Q10H [facility] Medication 1 each 05/10/20 09:00 No Benzodiazepines MISCELLANE DAILY [facility] Ondansetron HCl 4 mg 05/08/20 17:28 Ondansetron Hcl 4 Mg/2 Ml Vial IVPUSH Q8H PRN Nausea and Vomiting Pharmacy Consult 1 each 05/08/20 10:17 Consult Rx Perform Med Rec MISCELLANE ONCE PRN Consult order Phenobarbital 45 mg 05/10/20 09:00 Phenobarbital 15 Mg Tablet PO 05/11/20 21:01 BID [facility] Phenobarbital 30 mg 05/12/20 09:00 Phenobarbital 30 Mg Tablet PO 05/13/20 21:01 BID [facility] Phenobarbital 30 mg 05/14/20 09:00 Phenobarbital 30 Mg Tablet PO 05/15/20 09:01 DAILY [facility] Phenobarbital Sodium 160 mg 05/09/20 15:00 Phenobarbital Sodium 130 Mg/Ml Vial IM 05/09/20 18:01 Q3H [facility] Sodium Chloride 3 ml 05/09/20 00:00 05/09/20 08:48 0.9 % Sodium Chloride Flush 3 Ml Syringe IVFLUSH 3 ml QSHIFT [facility] Administration Vitamin D 50 mcg 05/09/20 09:00 05/09/20 08:48 Cholecalciferol (Vitamin D3) 25 Mcg Tablet PO 50 mcg DAILY [facility] Administration Labs CBC & Chem 7: 05/09/20 06:03 05/09/20 06:03 Microbiology Microbiology Results: Microbiology 05/08/20 11:00 Blood - Venous Blood Culture - Preliminary No growth after 24 hours. 05/08/20 10:56 Blood - Venous Blood Culture - Preliminary No growth after 24 hours. 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 Observe for alcohol withdrawal and medicated with phenobarbital. Hyponatremia and hypoxia therefore his encephalopathy could be multifactorial Status: Acute (2) Alcohol abuse: Status: Acute (3) Acute hyponatremia: Status: Acute (4) Difficulty breathing: Status: Acute Assessment and Plan: 69-year-old male presented with confusion, possible seizure found to be hypoxic and hypotensive, placed on oxygen, CT head on admission shows no acute abnormality, ABG shows pCO2 retention was not acidotic, patient was placed on phenobarbital protocol Encephalopathy likely multifactorial from alcohol abuse, possible wernicke encephalopathy hypoxia and hyponatremia Monitor mental status Treat underlying condition Ammonia level was normal on admission ABG shows pCO2 retention but was not acidotic Seen by Neurology recommended Section of electrolyte and IV thiamine for possible Wernicke encephalopathy Significant alcohol abuse was restless and agitated today Started on phenobarbital and CIWA protocol Monitor electrolytes Started on high-dose IV thiamine per Neurology Supportive management Monitor on telemetry Hyponatremia likely secondary to dehydration and alcohol abuse Sodium 125 on admission improved to 130 today Continue gentle IV fluid Avoid over-correction Monitor sodium closely Acute hypoxic respiratory failure likely secondary to underlying COPD COVID PCR negative Continue inhalers Continue oxygen supplementation DVT prophylaxis heparin subQ
[2020-05-09] MEDS: PHENobarbitaL sodium 130 MG/ML VIAL 160 MG IM ×2 (15:03→17:39)
[2020-05-09 15:27] VITALS: BP 100/57; PULSE 94; RESP 19; TEMP 36.1; O2SAT 91
[2020-05-09] MEDS: Thiamine HCL 200 MG in 0.9 % Sodium Chloride 100 ML 204 MG IV (17:39)
--- NOTE | 2020-05-09 17:52 | PC.NURSE ---
At 0840am, patient with increased agitation, confusion, restlessness and impulsiveness. Patient scored a 12 on the CIWA scale and Dr. Stroud notified and at bedside. IV ativan ordered by Dr. Stroud and 0.5mg IV ativan given at 1034am. Patient still with increased agitation, confusion, restlessness, and pulled out peripheral IV. Dr. Stroud made aware and ordered the phenobarbital protocol. Patient received IM phenobarbital at 1149 with a CIWA of 14 and continued on phenobarbital protocol. Side rails padded, high fall risk protocol in place, and tele sitter in patient room with bed alarm on.
[2020-05-09 19:28] VITALS: BP 90/55; PULSE 63; RESP 19; TEMP 36; O2SAT 100
[2020-05-09 23:11] VITALS: BP 91/52; PULSE 55; RESP 19; TEMP 36; O2SAT 100
[2020-05-10] VITALS (31 sets, daily range): BP systolic 95–124; BP diastolic 38–64; PULSE 56–80; RESP 12–26; TEMP 35.3–36.8; O2SAT 90–987
--- NOTE | 2020-05-10 | XR_ITS ---
EXAMINATION: XR CHEST CLINICAL INFORMATION: Cough COMPARISON: 05/08/2020 TECHNIQUE: Frontal view of the chest was obtained. FINDINGS: Patchy alveolar and interstitial opacities in both lungs are similar to prior, most notably in the bases. No pneumothorax or pleural effusion. Cardiac and mediastinal contours are normal. No acute osseous findings. Osteoarthritis is present in the acromioclavicular joints. There is degenerative disc disease in the thoracic spine. XR/XR chest 1V IMPRESSION: Patchy airspace opacities in the lung bases which could be due to a viral or atypical infectious process. Chronic aspiration is also possible.
--- NOTE | 2020-05-10 02:04 | P.EN_ITS ---
Event Note Date of Service: 05/10/20 Event Note: Called to bedside by nursing staff as patient seemed more unrespon sive and blood pressure trended down. Upon arrival he awakened to voice but speech was unintelligible so cannot offer ROS. Breath sounds diminished at lung bases on exam. Will obtain portable CXR and ABG to eval for hypercarbia. Continue maintenance IV fluids for now. Remains on Zosyn IV. Given his somnolence will hold off on further Phenobarb dosing. Addendum: ABG showed hypercarbia well above prior. Case discussed with ICU PA who accepted in transfer for BiPAP.
--- NOTE | 2020-05-10 02:14 | PC.NURSE ---
Addendum entered by Citlali Busch RN 05/10/20 05:09: 0400: Co2 critical at 94, made aware, pt transferred to ICU for bipap. Original Note: Pt BP 95/55, O2 89% on 3L NC, rectal temp 96.0. Pt arousable to shaking, speech is slurred, unintelligible at times. made aware, MD to bedside to assess patient, new order for STAT ABG's, STAT CXR. Pt satting at 97% on 4L NC will wean down as tolerated.Will continue to reassess.
[2020-05-10 02:30] LABS: Pt Ventilation O2% 4 L
[2020-05-10 02:35] LABS: PO2 ABG 80 mmHg (83-108)
[2020-05-10 02:36] LABS: Base Excess ABG 27.2; HCO3 ABG 57 mmol/L (22-26); pH ABG 7.38 (7.35-7.45)
[2020-05-10 02:38] LABS: ABG PCO2 94 mmHg (32-45)
[2020-05-10] MEDS: 0.9 % Sodium Chloride 1,000 ML 100 ML IVCONT (03:40)
--- NOTE | 2020-05-10 03:40 | P.CONCC_ITS ---
History of Present Illness Data of Consult Service Date: 05/10/20 Requesting physician: Nathaniel Haider I Primary Care Provider: Unknown Physician HPI Reason for consult: Mental status changes and hypercarbia HPI: Patient was transferred from the floor, he is a 69-year-old with unde rlying history of alcoholism, COPD, hemochromatosis, liver cancer, who was admitted after being seen in the ER on 05/08/2020, apparently patient was found by a neighbor on a recliner with O2 sats in the 70s, placed on non-rebreather and transported to the hospital. The patient was significantly weak. At the time his vital signs were otherwise stable, he was found to have diminished lung sounds with diffuse wheezing, patient's CO2 was somewhat elevated he was placed on BiPAP and he was given Zosyn due to patchy infiltrates noted on x-rays. At the time his sodium was 125 and he was admitted to Medicine with consult to Nephrology. COVID negative. Today was call from the hospitalist given the patient is worsening mental status and concerning CO2 retention as he is current CO2 is in the low 90s. Reportedly patient has been treated for possible aspiration pneumonia for which she has been given Zosyn, arrival his ammonia was normal. The did give him Ativan and phenobarbital for signs and symptoms of alcohol withdrawal however today he is more somnolent than usual and they were concerned about his breathing capabilities. Overall the patient is not a good historian, he appears to be hallucinating and reaching for things in the air that are not there but he does follow commands and appears to be pleasant. S respiratory ability shows no usage of accessory muscles. His not hypoxic at this point. His ABG on the floor however showed a pH of 7.38, pCO2 94, PO2 of 80, HC03 of 57. I have kindly requested to place the patient on BiPAP and transferred to the ICU. ROS: Unable to obtain due to mental status Past Medical History: As above Past Surgical History: Unknown Family history: Unknown Social History: History of COPD, current everyday smoker, unable to tell us if he consumes drugs. Known history of alcohol abuse. Living situation is unk nown. CODE STATUS: Full code Allergies: No known drug allergies, Bees and pollen (difficulty breathing Home Medications: Please see med rec PHYSICAL EXAM: VS: Blood pressure 105/54, heart rate 71, respirations 13, O2 sat 100% on BiPAP with settings of 14/5 with an FiO2 of General: Alert oriented to person, not to place or time. He does follow basic commands including recent his arms up and moving his legs. Skin: Intact, no lesions, edema, erythema, clubbing or cyanosis. No ulcers. HEENT: Head is normocephalic, atraumatic, pupils equal round reactive to light accommodation bilaterally. Extraocular movements appear intact. Buccal mucosa is moist, Neck is supple without lymphadenopathy. Cardiac: Clear S1-S2, no murmurs rubs or gallops. Pulmonary: Diminished lung sounds bilaterally with fine expiratory wheezing bilaterally and throughout. Abdomen: Protuberant, positive bowel sounds in all 4 quadrants. Soft, nontender, no rebound or guarding. Musculoskeletal: Moving all 4 extremities upon request a major joints, there is no crepitus or tenderness. The strength is 5/5 bilaterally and throughout all 4 extremities. Gait not assessed at this point. Neurologic: As above, cranial nerves 2-12 are grossly intact. No focal deficits noted. Motor strength as above. Vascular: 2+ pulses upper and lower extremities distally. SIGNIFICANT LABORATORY DATA: White blood cell sign 0.4, hemoglobin 11.1, hematocrit 31, platelet 160 REVIEW OF IMAGES: Today's chest x-ray Patchy airspace opacities in the lung bases which could be due to a viral or atypical infectious process. Chronic aspiration is also possible. Head /abdomen pelvis/chest CT IMPRESSION done on 05/08/2020 No acute intracranial process seen. Age-related cerebral volume loss with chronic small vessel ischemic changes. There is no acute process seen in the chest or the abdomen. Diffuse emphysema with bullous changes in both upper lobes. Nonspecific minimal patchy reticular opacities in both lower lobes. No confluent infiltrate, pleural effusion or pneumothorax seen. Mild constipation. Sigmoid diverticulosis without diverticulitis. EKG REVIEW: Sinus rhythm 87 beats per minute. No ST elevations, no depressions. QTC 457. No comparison available. ASSESSMENT AND PLAN: 1. Hypoxic respiratory failure with hypercarbic state (COVID negative) 2. Mental status changes due to the above and etoh DTs 3. History of alcohol abuse with current alcohol withdrawal DTs 4. Acute kidney injury with BUN to creatinine ratio of 30===== improving 5. Obtundation appears to be multifactorial but also in the setting of sedatives given for his withdrawal, rule out Wernicke's encephalopathy 6. History of liver cancer and hemochromatosis 7. Clinical dehydration====improving 8. Hyponatremia due to volume depletion===improving 9. COPD exacerbation Transferred to ICU, BiPAP, repeated blood gas in the morning, avoid any more sedatives at this point, decrease phenobarbital, continue with LR, thiamine, folic acid and had multivitamin, repeat chemistries in the morning and monitor renal function and sodium level. Start steroids, DuoNebs and albuterol. Will add Zithromax as the patient has COPD and he has a atypical pneumonia on images. GI PROPHYLAXIS: IV Protonix DVT PROPHYLAXIS: Heparin subQ Critical care time used for critical evaluation of this patient, diagnosis, treatment and coordination of care, review her records and documentation TOTAL CRITICAL CARE TIME 90 MIN . Patient's care was discussed in detail with Dr. Arias. He is aware of all the above as well as the plan of care for this patient. Review of Systems ENT: Reports Normal hearing present Neurologic: Reports as per HPI, Reports Normal hearing present and Reports confusion Psychiatric: Psychiatric: Reports confusion [facility] Past Medical History Medical History (Updated 05/09/20 @ 14:00 by Asha Mueller MD) COPD (chronic obstructive pulmonary disease) ETOH abuse Hemochromatosis Liver cancer Social History Social History (Updated 05/08/20 @ 10:31 by Mary Givens DO) Household Members: Unknown / Unable to assess Housing: Unknown / Unable to assess Alcohol intake: current Smoking Status: Current every day smoker Use of substances other than those prescribed or required for medical reasons: Unable to respond Currently Displaying Signs/Symptoms of Drug Intoxication Withdrawal: No (too lethargic, hx etoh) Advance Directives: No Advance Directives Information Provided: No Do you have thoughts of harming others: None Do you have a plan to hurt others: No Plan service: No Current occupational status: retired Meds Allergies Allergy/AdvReac Type Severity Reaction Status Date / Time bee pollen [BEE STINGS] Allergy Unknown DIF Unverified 01/09/20 14:57 FBREATHING Home Medications Medication Instructions Recorded Confirmed Type albuterol sulfate [ProAir HFA] 2 puff INHALATION Q6H PRN 05/08/20 05/08/20 History aspirin 81 mg PO DAILY 05/08/20 05/08/20 History cholecalciferol (vitamin D3) 50 mcg PO DAILY 05/08/20 05/08/20 History [Vitamin D3] cyanocobalamin (vitamin B-12) 1,000 mcg PO DAILY 05/08/20 05/08/20 History fluticasone propionate [Flovent] 2 puff INHALATION BID 05/08/20 05/08/20 History folic acid 1 mg PO DAILY 05/08/20 05/08/20 History omega 7-[id number]-[id number]-fish oil [Fish Oil] 1 cap PO BID 05/08/20 05/08/20 History tiotropium bromide [Spiriva 2 puff INHALATION DAILY 05/08/20 05/08/20 History Respimat] Physical Exam Vital Signs: Vital Signs: Last Vital Signs Temp 96.0 F L 05/10/20 02:12 Pulse 69 05/10/20 02:12 Resp 16 05/10/20 02:12 BP 95/55 L 05/10/20 02:12 Pulse Ox 93 05/10/20 02:12 Body Mass Index 22.3 Const: General: confusion Orientation/consciousness: confusion Neuro: General: confusion Cranial nerves: Yes Normal hearing present Results Labs CBC & Chem 7: 05/10/20 05:08 05/10/20 05:08 Labs: Short CBC 05/09/20 Range/Units 06:03 WBC 8.4 (4.8-10.8) X10*3/uL Hgb 11.1 L (14.0-18.0) g/dl Hct 31.0 L (42-52) % Plt Count 160 (160-400) X10*3/uL BMP 05/09/20 06:03 Sodium 130 L Potassium 3.3 Chloride 79 L Carbon Dioxide 39 H BUN 23 H Creatinine 0.72 Calcium 8.4 Microbiology Microbiology Results: Microbiology 05/08/20 11:00 Blood - Venous Blood Culture - Preliminary No growth after 24 hours. 05/08/20 10:56 Blood - Venous Blood Culture - Preliminary No growth after 24 hours.
[2020-05-10] MEDS: Thiamine HCL 200 MG in 0.9 % Sodium Chloride 100 ML 204 MG IV ×3 (03:43→17:29)
[2020-05-10] MEDS: Piperacillin Sodium/Tazobactam 2.25 GM in 0.9 % Sodium Chloride 50 ML IV ×2 (03:43→08:58)
[2020-05-10] MEDS: Albuterol Sulfate (0.083%) 2.5 MG/3 ML VIAL.NEB INHALE (04:03)
[2020-05-10] MEDS: Pantoprazole Sodium 40 MG/10 ML VIAL IVPUSH (04:18)
[2020-05-10] MEDS: methylPREDNISolone Sod Succ/PF 125 MG/2 ML VIAL 60 MG IVPUSH ×2 (04:18→11:48)
[2020-05-10] MEDS: Azithromycin 500 MG in 0.9 % Sodium Chloride 250 ML 125 MG IV (04:20)
--- NOTE | 2020-05-10 04:46 | PC.NURSE ---
Arrived to unit approx 0330. Lethargic. Rouses to shaking. Occasionally follows commands. Not speaking. Falls back to sleep mid interaction. SR 70's. [id number]'s Placed on bipap 14/5/28%. TV 400-500. MV 8-9. 02 Sat mid 90's. RR 15-20. [place] draining concentrated urine. Smear of liquid stool. Red, blanchable coccyx. Photograph taken. Barrier cream applied. Airloss bed. Repo q2. Increasingly wakeful, becoming restless, sitting up in bed/attempting to climb over siderails. Camera in place.
[2020-05-10 05:22] LABS: MANUAL DIFF FLAG NO
[2020-05-10 05:24] LABS: Base Excess VBG 20.8 mmol/L; HCO3 VBG 49 mmol/L; PCO2 VBG 82 mmHg; PO2 VBG 45 mmHg; pH VBG 7.39 (7.32-7.43)
[2020-05-10 05:30] LABS: Basophils Percent Auto 0.1 % (0-2); Eosinophils Percent Auto 0.3 % (0-4); Hematocrit 33.4 % (42-52); Hemoglobin 11.4 g/dl (14.0-18.0); Imm Gran Abs Auto 0.07 X10*3/uL (0.00-0.03); Imm Gran Pct Auto 0.7 % (0.0-0.4); Lymphocytes Absolute Auto 1.9 X10*3/uL (1.2-4.9); Lymphocytes Percent Auto 20.5 % (20-40); Mean Corpuscular HGB Conc 34.1 g/dl (31.0-36.0); Mean Corpuscular Hemoglobin 32.7 pg (27.0-33.0); Mean Corpuscular Volume 95.7 fL (80-98); Mean Platelet Volume 9.6 fL (9.4-12.4); Monocytes Absolute Auto 0.9 X10*3/uL (0.1-1.2); Monocytes Percent Auto 9.5 % (2-11); Neutrophils Absolute Auto 6.5 X10*3/uL (2.0-8.3); Neutrophils Percent Auto 68.9 % (45-73); Platelet Count 143 X10*3/uL (160-400); Red Blood Count 3.49 X10*6/uL (4.60-5.80); White Blood Count 9.4 X10*3/uL (4.8-10.8)
[2020-05-10 05:38] LABS: D Dimer 481 NG/ML
[2020-05-10 05:47] LABS: Anion Gap 12 (12-20); Blood Urea Nitrogen 17 mg/dL (9-16); Calcium 8.4 mg/dL (8.4-10.2); Carbon Dioxide 39 mmol/L (22-29); Chloride 89 mmol/L (96-108); Creatinine Clr Calc Pharmacy 104.4; Estimated Glomerular Filt Rate > 60; Glucose Fasting 102 mg/dL (60-99); Potassium 3.6 mmol/l (3.3-5.1); Sodium 136 mmol/L (135-145)
[2020-05-10 06:05] LABS: Procalcitonin 0.02 ng/mL
[2020-05-10 06:09] LABS: Ferritin 443 ng/mL (20-250)
[2020-05-10] MEDS: Albuterol/Iprat 2.5/0.5MG 3 ML AMPUL.NEB INHALE ×4 (07:27→19:43)
[2020-05-10] MEDS: Heparin Sodium,Porcine 5,000 UNIT/ML VIAL 5000 UNIT SUBCUT ×2 (09:42→23:03)
[2020-05-10] MEDS: acetaZOLAMIDE sodium 500 MG VIAL IVPUSH ×3 (10:45→23:03)
--- NOTE | 2020-05-10 12:07 | P.PNCC_ITS ---
Subjective Subjective Date of Service: 05/10/20 Interval History: Mr. Nelson was transferred down to ICU this morning bec of AMS, ? JUAN, with hypercarbic resp failure. Admitted yesterday thru the ED bec of AMS w hyponatremia, metabolic alkalosis, and mild hypercarbia. BE was +19, PaCO2 60, pH 7.49. The patient has no prior evidence of CO2 retention (no blood gases showing CO2 retention, and all prior bicarb levels were normal). I saw him in the ED and recommended Diamox at that time, but none was given. Tox screen was fully negative. COVID RAHUL was negative. (COVID PCR on 04/02/20 was negative.) CXR was read as showing patchy opacity. Chest CT in the ED (not sure why) showed only bullous lung dz with CLD, some increased reticular markings most prominent in both LLs. He was started on Zosyn and given 30cc/kg fluids, altho no fever, and WBC and lactate were normal. He was admitted to Medicine. 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 Zosyn was continued. Was treated with Ativan and phenobarbital overnite. Early this morning hallucinating. ABG 7.38/94/80. He was tx to ICU for BiPAP. On my exam, he?s arousable, looks at me purposefully, but just mumbles. Breathing easy on BiPAP, looks thoroughly nontoxic. On BiPAP 14/5/28%, Vt was up to > 900cc, RR about 18, Ve 15L, Sat 98%. We turned him down to 12/5/24%, w Vt 700cc, Sat 95%. No JVD. Very diminished BS throughout. I heard no wheeze, but exp phase looks normal. No edema. LABORATORY DATA: As below. IMPRESSION: 1. Underlying COPD (emphysema). As demonstrated on physical exam and by chest x-ray and CT scan. No prior evidence of CO2 retention, however. Furthermore, there is no real evidence of a CO2 exacerbation at this time. I?ll drop his steroids to 40mg q12hr. 2. Primary metabolic alkalosis. Etiology is undetermined. Should have been started on Diamox yesterday. I started him on it this morning. 3. Hypercarbic respiratory failure. Due to [employer] depressants and facilitated by metabolic alkalosis. Rx BiPAP and Diamox. 4. Altered mental status. Unclear etiology. Could very well be Wernicke- Korsakoff. At this point, I would discontinue all [employer] depressants. Continue thiamine and folate. 5. No evidence of sepsis. 6. ID: No evidence of any infectious process at this point. D/C antibiotics. Critical care time (including full chart rev): 70 min. Physical Exam Vital Signs: Vital Signs: Last Vital Signs Temp 97.6 F 05/10/20 08:00 Pulse 69 05/10/20 11:22 Resp 16 05/10/20 11:20 BP 124/61 05/10/20 11:00 Pulse Ox 96 05/10/20 11:00 Body Mass Index 22.3 Objective Data Labs CBC & Chem 7: 05/10/20 05:08 05/10/20 05:08 Labs: Laboratory Results - last 24 hr 05/10/20 05/10/20 05/10/20 02:16 05:08 05:08 WBC 9.4 RBC 3.49 L Hgb 11.4 L Hct 33.4 L MCV 95.7 MCH 32.7 MCHC 34.1 RDW 14.0 Plt Count 143 L MPV 9.6 Immature Gran % (Auto) 0.7 H Neut % (Auto) 68.9 Lymph % (Auto) 20.5 [place] % (Auto) 9.5 Eos % (Auto) 0.3 Baso % (Auto) 0.1 Lymph # (Auto) 1.9 [place] # (Auto) 0.9 Eos # (Auto) 0.0 Baso # (Auto) 0.0 Abs Immat Gran (auto) 0.07 H Absolute Neuts (auto) 6.5 Absolute Nucleated RBC 0.000 Nucleated RBC % (auto) 0.0 D-Dimer 481 ABG pH 7.38 ABG pCO2 94 H* ABG pO2 80 L ABG HCO3 57 H ABG O2 Saturation 96.0 ABG Base Excess 27.2 VBG pH VBG pCO2 VBG pO2 VBG HCO3 VBG O2 Saturation VBG Base Excess Oxygen Given 4 L Sodium Potassium Chloride Carbon Dioxide Anion Gap BUN Creatinine Estim Creat Clear Calc Estimated GFR Fasting Glucose Calcium Ferritin Procalcitonin 05/10/20 05/10/20 05/10/20 05:08 05:08 05:08 WBC RBC Hgb Hct MCV MCH MCHC RDW Plt Count MPV Immature Gran % (Auto) Neut % (Auto) Lymph % (Auto) [place] % (Auto) Eos % (Auto) Baso % (Auto) Lymph # (Auto) [place] # (Auto) Eos # (Auto) Baso # (Auto) Abs Immat Gran (auto) Absolute Neuts (auto) Absolute Nucleated RBC Nucleated RBC % (auto) D-Dimer ABG pH ABG pCO2 ABG pO2 ABG HCO3 ABG O2 Saturation ABG Base Excess VBG pH 7.39 VBG pCO2 82 VBG pO2 45 VBG HCO3 49 VBG O2 Saturation 67.0 VBG Base Excess 20.8 Oxygen Given Sodium 136 Potassium 3.6 Chloride 89 L Carbon Dioxide 39 H Anion Gap 12 BUN 17 H Creatinine 0.61 Estim Creat Clear Calc 104.4 Estimated GFR > 60 Fasting Glucose 102 H Calcium 8.4 Ferritin 443 H Procalcitonin 0.02 Microbiology Microbiology Results: Microbiology 05/08/20 13:09 Urine clean catch - Clean Catch Midstream Urine Culture - Final No growth. 05/08/20 11:00 Blood - Venous Blood Culture - Preliminary No growth after 24 hours. 05/08/20 10:56 Blood - Venous Blood Culture - Preliminary No growth after 24 hours. Progress Note: A&P Time Spent With Patient Time: Total time spent is greater than 50% in coordination of care (as documented) at patient's floor/unit and/or counseling patient: Total time spent with greater than 50% in coordination of care (as documented) at patient's floor/unit and/or counseling patient:: 0 Critical Care Time Critical Care Time (minutes): 60
[2020-05-10] MEDS: 0.9 % Sodium Chloride Flush 3 ML SYRINGE IVFLUSH ×2 (15:06→23:04)
--- NOTE | 2020-05-10 16:40 | PC.NURSE ---
PT UNRESPONSIVE MOST OF SHIFT. SHAKING OR MOVEMENT WITH CARE PT WOULD GROAN, UNABLE TO SPEAK WORDS, DOES NOT FOLLOW COMMANDS. AT APPROXIMETALLY 1500 PT OPENS EYES AND RESPONDS TO NAME, FOLLOWS SIMPLE COMMANDS (SQUEEZE HANDS, WIGGLES TOES), DENIES PAIN. PT EDUCATED ON IMPORTANCE OF LEAVING BIPAP ON AND THAT HE IS IN THE HOSPITAL. AFEBRILE. VSS. BIPAP / 24%. LS DIMINISHED THROUGHOUT. WIGGINS OUTPUT WNL, NO BM. BATHED, BARRIER CREAM APPLIED, Q2H REPO, PILLOWS UTILIZED, AIR MATTRESS ON. FAMILY UPDATED BY THIS RN.
[2020-05-10 19:46] LABS: HCO3 VBG 44 mmol/L; PCO2 VBG 79 mmHg; PO2 VBG 45 mmHg; pH VBG 7.35 (7.32-7.43)
[2020-05-10 19:47] LABS: Base Excess VBG 15.6 mmol/L
--- NOTE | 2020-05-10 20:59 | P.PNNP_ITS ---
Subjective Subjective Date of Service: 05/10/20 Interval history: Pt now in the ICU Na is normal now Physical Exam Vital Signs: Vital Signs: Last Vital Signs Temp 98.0 F 05/10/20 15:00 Pulse 69 05/10/20 20:44 Resp 16 05/10/20 20:44 BP 110/64 05/10/20 20:44 Pulse Ox 90 L 05/10/20 20:44 Body Mass Index 22.3 Const: General: no acute distress, awake, confusion, lethargic and poor hygiene Nutritional Appearance: malnourished Orientation/consciousness: oriented to person, confusion and lethargic Limitations: altered mental status HENMT: Head: Yes normal to inspection, Yes normocephalic and Yes atraumatic Ears: hearing grossly normal bilaterally General nose exam: Normal external nose present Face and sinus: Yes normal facial exam Mouth: Normal oral and palatal mucosa present Eyes: General: appearance normal, both eyes and all related structures Alignment and Position: alignment normal Periorbital: periorbital findings normal Eyelids: Yes eyelids normal Conjunctivae: conjunctivae normal Sclerae: sclerae normal Corneas: corneas normal Pupils: Equal, round and reactive pupils present EOM: EOMs intact bilaterally Direct Ophthalmoscopy: normal light reflex Neck: Neck: Yes normal visual inspection, Yes full ROM and Yes no meningeal signs Thyroid: Thyroid normal Carotids: normal carotid upstroke and bounding pulses Chest: Chest palpation & inspection: normal inspection of the chest Resp: Effort & Inspection: normal respiratory effort Auscultation: clear to auscultation bilaterally Cardio: Jugular venous distension: no JVD Rate: regular rate Rhythm: regular rhythm Heart sounds: S1 normal heart sound present and S2 normal heart sound present Peripheral pulses: Peripheral pulses 2+ throughout GI: Inspection: Yes normal to inspection Percussion: Yes normal to percussion Auscultation: normal bowel sounds Rectal Exam - Male: Yes deferred Back/Spine/Pelvis: Cervical Spine: normal cervical lordosis and cervical ROM normal Thoracic/Lumbar Spine: thoracic and lumbar spine normal to inspection Skin: General skin exam: no rashes or lesions noted Neuro: General: oriented to person, tone normal, moves all extremities, no meningeal signs, no focal motor deficits, CN's II-XI intact bilaterally, deep tendon reflexes 2+ bilaterally, confusion and Unable to assess gait Cranial nerves: Yes CN's II-XII intact bilaterally, Yes Equal, round and reactive pupils present, Yes Bilaterally intact EOM present, Yes Nystagmus not present, Yes Normal facial strength present, Yes Midline tongue present, Yes Normal hearing present and Yes Ability to bilaterally rotate head present Cognition (Neuro): abnormal cognition Speech: Other speech findings present (Neuro) Gait exam (Neuro): Unable to assess gait Motor exam (neuro): 5/5 motor strength present throughout, Pronator motor function not present, no tremor noted, no asterixis, Motor fasciculations not present, Normal motor muscle tone present throughout and Motor abnormalities not present Sensory Exam: Bilaterally intact grap hesthesia Deep tendon reflexes (DTR's): Right triceps reflex intensity grade: 2+, Left triceps reflex intensity grade: 2+, Rt Biceps (C5, C6): 2+, Left biceps reflex intensity grade: 2+, Right brachioradialis reflex intensity grade: 2+, Left brachioradialis reflex intensity grade: 2+, Right patellar reflex intensity grade: 2+, Left patellar reflex intensity grade: 2+, Right ankle reflex intensity grade: 2+ and Left ankle reflex intensity grade: 2+ Plantar Reflex Responses: downgoing: right, left and bilateral Pupils: Normal pupillary terri ctivity/response: bilateral Extrem: General: Yes normal to inspection, Yes normal exam except as noted and Yes no pedal edema Psych: Appearance: grossly normal Mental Status: mental status grossly normal Speech and movement: Normal speech and movement present and Clear speech present Affect: normal affect Attitude: cooperative Thought process: Normal thought process present Objective Data Labs CBC & Chem 7: 05/10/20 05:08 05/10/20 05:08 Labs: Laboratory Results - last 24 hr 05/10/20 05/10/20 05/10/20 02:16 05:08 05:08 WBC 9.4 RBC 3.49 L Hgb 11.4 L Hct 33.4 L MCV 95.7 MCH 32.7 MCHC 34.1 RDW 14.0 Plt Count 143 L MPV 9.6 Immature Gran % (Auto) 0.7 H Neut % (Auto) 68.9 Lymph % (Auto) 20.5 [place] % (Auto) 9.5 Eos % (Auto) 0.3 Baso % (Auto) 0.1 Lymph # (Auto) 1.9 [place] # (Auto) 0.9 Eos # (Auto) 0.0 Baso # (Auto) 0.0 Abs Immat Gran (auto) 0.07 H Absolute Neuts (auto) 6.5 Absolute Nucleated RBC 0.000 Nucleated RBC % (auto) 0.0 D-Dimer 481 ABG pH 7.38 ABG pCO2 94 H* ABG pO2 80 L ABG HCO3 57 H ABG O2 Saturation 96.0 ABG Base Excess 27.2 VBG pH VBG pCO2 VBG pO2 VBG HCO3 VBG O2 Saturation VBG Base Excess Oxygen Given 4 L Sodium Potassium Chloride Carbon Dioxide Anion Gap BUN Creatinine Estim Creat Clear Calc Estimated GFR Fasting Glucose Calcium Ferritin Procalcitonin 05/10/20 05/10/20 05/10/20 05:08 05:08 05:08 WBC RBC Hgb Hct MCV MCH MCHC RDW Plt Count MPV Immature Gran % (Auto) Neut % (Auto) Lymph % (Auto) [place] % (Auto) Eos % (Auto) Baso % (Auto) Lymph # (Auto) [place] # (Auto) Eos # (Auto) Baso # (Auto) Abs Immat Gran (auto) Absolute Neuts (auto) Absolute Nucleated RBC Nucleated RBC % (auto) D-Dimer ABG pH ABG pCO2 ABG pO2 ABG HCO3 ABG O2 Saturation ABG Base Excess VBG pH 7.39 VBG pCO2 82 VBG pO2 45 VBG HCO3 49 VBG O2 Saturation 67.0 VBG Base Excess 20.8 Oxygen Given Sodium 136 Potassium 3.6 Chloride 89 L Carbon Dioxide 39 H Anion Gap 12 BUN 17 H Creatinine 0.61 Estim Creat Clear Calc 104.4 Estimated GFR > 60 Fasting Glucose 102 H Calcium 8.4 Ferritin 443 H Procalcitonin 0.02 05/10/20 19:39 WBC RBC Hgb Hct MCV MCH MCHC RDW Plt Count MPV Immature Gran % (Auto) Neut % (Auto) Lymph % (Auto) [place] % (Auto) Eos % (Auto) Baso % (Auto) Lymph # (Auto) [place] # (Auto) Eos # (Auto) Baso # (Auto) Abs Immat Gran (auto) Absolute Neuts (auto) Absolute Nucleated RBC Nucleated RBC % (auto) D-Dimer ABG pH ABG pCO2 ABG pO2 ABG HCO3 ABG O2 Saturation ABG Base Excess VBG pH 7.35 VBG pCO2 79 VBG pO2 45 VBG HCO3 44 VBG O2 Saturation 71.0 VBG Base Excess 15.6 Oxygen Given Sodium Potassium Chloride Carbon Dioxide Anion Gap BUN Creatinine Estim Creat Clear Calc Estimated GFR Fasting Glucose Calcium Ferritin Procalcitonin Microbiology Microbiology Results: Microbiology 05/08/20 11:00 Blood - Venous Blood Culture - Preliminary No growth after 48 hours. 05/08/20 10:56 Blood - Venous Blood Culture - Preliminary No growth after 48 hours. 05/08/20 13:09 Urine clean catch - Clean Catch Midstream Urine Culture - Final No growth. Assessment & Plan Assessment and plan (1) Acute alteration in mental status: Status: Acute (2) Alcohol abuse: Status: Acute (3) Acute hyponatremia: Status: Acute (4) Difficulty breathing: Status: Acute Assessment and Plan: 69-year-old male presented with confusion, possible seizure found to be hypoxic and hypotensive, -Hyponatremia likely secondary to dehydration and alcohol abuse Sodium 125 on admission improved to 136 today Continue gentle IV fluid Agree with rate of -correction Monitor sodium closely - Alcohol abuse - Acute hypoxic respiratory failure likely secondary to underlying COPD COVID PCR negative Will signm off - Reconsult PRN Time Spent With Patient Time: Total time spent is greater than 50% in coordination of care (as documented) at patient's floor/unit and/or counseling patient:
[2020-05-10] MEDS: methylPREDNISolone Sod Succ/PF 125 MG/2 ML VIAL 40 MG IVPUSH (23:03)
[2020-05-11] VITALS (30 sets, daily range): BP systolic 98–127; BP diastolic 45–70; PULSE 57–95; RESP 11–24; TEMP 35.9–36.6; O2SAT 92–97
[2020-05-11] MEDS: acetaZOLAMIDE sodium 500 MG VIAL IVPUSH (03:31)
[2020-05-11] MEDS: Thiamine HCL 200 MG in 0.9 % Sodium Chloride 100 ML 204 MG IV ×3 (03:31→17:21)
[2020-05-11 05:27] LABS: Base Excess VBG 5.6 mmol/L; HCO3 VBG 30 mmol/L; PCO2 VBG 46 mmHg; PO2 VBG 151 mmHg; pH VBG 7.42 (7.32-7.43)
[2020-05-11 05:48] LABS: Hematocrit 28.9 % (42-52); Imm Gran Abs Auto 0.06 X10*3/uL (0.00-0.03); Imm Gran Pct Auto 0.7 % (0.0-0.4); Lymphocytes Absolute Auto 0.6 X10*3/uL (1.2-4.9); MANUAL DIFF FLAG SCAN; Mean Corpuscular HGB Conc 34.6 g/dl (31.0-36.0); Mean Corpuscular Hemoglobin 33.8 pg (27.0-33.0); Mean Corpuscular Volume 97.6 fL (80-98); Mean Platelet Volume 9.9 fL (9.4-12.4); Monocytes Absolute Auto 0.4 X10*3/uL (0.1-1.2); Monocytes Percent Auto 4.9 % (2-11); Neutrophils Absolute Auto 7.7 X10*3/uL (2.0-8.3); Neutrophils Percent Auto 87.4 % (45-73); Platelet Count 158 X10*3/uL (160-400); Red Blood Count 2.96 X10*6/uL (4.60-5.80); Red Cell Distribution Width 14.2 % (11.0-16.0); SCAN SMEAR FLAG 1; White Blood Count 8.8 X10*3/uL (4.8-10.8)
[2020-05-11] MEDS: Pantoprazole Sodium 40 MG/10 ML VIAL IVPUSH (06:10)
[2020-05-11 06:11] LABS: SLIDE REVIEW VERIFIED
[2020-05-11 06:18] LABS: Anion Gap 12 (12-20); Blood Urea Nitrogen 18 mg/dL (9-16); Calcium 8.2 mg/dL (8.4-10.2); Carbon Dioxide 29 mmol/L (22-29); Chloride 96 mmol/L (96-108); Creatinine Clr Calc Pharmacy 101.2; Estimated Glomerular Filt Rate > 60; Glucose Random 135 mg/dL (60-115); Magnesium 1.7 mg/dL (1.6-2.6); Phosphorus 2.8 mg/dL (2.7-4.5); Potassium 2.9 mmol/l (3.3-5.1); Sodium 134 mmol/L (135-145)
--- NOTE | 2020-05-11 06:51 | PC.NURSE ---
Patient slept on bipap most of night. Woke up restless a couple times, destroyed bipap mask. Mental status unchanged, remains lethargic. Rouses to tactile/verbal stimuli, falls back to sleep immediately when undisturbed. Nonverbal, unable to assess orientation. Follows simple commands. BHAKTA. Brisk PERRL. Remains too obtunded for swallow eval. Would not allow mouth care. Clamps mouth shut. Moisturized applied to lips. UOP 30-50 cc/hr, concentrated. Small smear BM. Blanchable redness to buttocks. Repo q2. Airloss bed. Barrier cream.
[2020-05-11] MEDS: Albuterol/Iprat 2.5/0.5MG 3 ML AMPUL.NEB INHALE ×4 (07:28→19:54)
[2020-05-11] MEDS: 0.9 % Sodium Chloride Flush 3 ML SYRINGE IVFLUSH ×2 (07:51→16:31)
[2020-05-11] MEDS: Folic Acid 1 MG TABLET PO (09:45)
[2020-05-11] MEDS: Atorvastatin Calcium 40 MG TABLET PO (09:45)
[2020-05-11] MEDS: Cyanocobalamin (Vitamin B-12) 1,000 MCG TABLET 1000 MCG PO (09:45)
[2020-05-11] MEDS: Cholecalciferol (Vitamin D3) 25 MCG TABLET 50 MCG PO (09:45)
[2020-05-11] MEDS: Aspirin Enteric Coated 81 MG TABLET.DR PO (09:45)
[2020-05-11] MEDS: Potassium Chloride Packet 20 MEQ PACKET 40 MEQ PO ×3 (09:45→17:21)
--- NOTE | 2020-05-11 10:16 | MHC.CLN ---
RE: CONSULT PT WITH 50% AVG PO INTAKE WILL START ENSURE BID TO INCREASE KCALS
--- NOTE | 2020-05-11 12:56 | PM.CCPN ---
Subjective Subjective Date of Service: 05/11/20 Interval History: 70-year-old male with chronic continuous alcoholism and alcoholic liver disease presented with altered mental status further exacerbated after phenobarb and Ativan protocol with acute on chronic hypercapnic respiratory failure and further alteration of mental status but responding well to BiPAP currently awake following commands return of cognitive function and pCO2 is now down to 46 so the question is whether he can be sustained off BiPAP Physical Exam Vital Signs: Vital Signs: Last Vital Signs Temp 97.3 F 05/11/20 07:46 Pulse 72 05/11/20 12:00 Resp 16 05/11/20 12:00 BP 112/55 L 05/11/20 12:00 Pulse Ox 95 05/11/20 12:00 Body Mass Index 22.3 Const: Other: Lethargic but easily arousable and following commands with reasonable cognitive function Nonfocal neurologic Cardiac exam with no neck vein distension and good bilateral carotid upstrokes and no murmurs no gallops no peripheral edema Skin intact Respiratory clear with no adventitious sounds Abdomen benign with no organomegaly and nontender and nondistended Objective Data Labs CBC & Chem 7: 05/11/20 05:17 05/11/20 05:17 Labs: Laboratory Results - last 24 hr 05/10/20 05/11/20 05/11/20 19:39 05:17 05:17 WBC 8.8 RBC 2.96 L Hgb 10.0 L Hct 28.9 L MCV 97.6 MCH 33.8 H MCHC 34.6 RDW 14.2 Plt Count 158 L MPV 9.9 Immature Gran % (Auto) 0.7 H Neut % (Auto) 87.4 H Lymph % (Auto) 7.0 L Marshall % (Auto) 4.9 Eos % (Auto) 0.0 Baso % (Auto) 0.0 Lymph # (Auto) 0.6 L Marshall # (Auto) 0.4 Eos # (Auto) 0.0 Baso # (Auto) 0.0 Abs Immat Gran (auto) 0.06 H Absolute Neuts (auto) 7.7 Absolute Nucleated RBC 0.000 Nucleated RBC % (auto) 0.0 Smear Tech's Comments VERIFIED VBG pH 7.35 VBG pCO2 79 VBG pO2 45 VBG HCO3 44 VBG O2 Saturation 71.0 VBG Base Excess 15.6 Sodium 134 L Potassium 2.9 L Chloride 96 Carbon Dioxide 29 Anion Gap 12 BUN 18 H Creatinine 0.62 Estim Creat Clear Calc 101.2 Estimated GFR > 60 Random Glucose 135 H Calcium 8.2 L Phosphorus 2.8 Magnesium 1.7 05/11/20 05:17 WBC RBC Hgb Hct MCV MCH MCHC RDW Plt Count MPV Immature Gran % (Auto) Neut % (Auto) Lymph % (Auto) Marshall % (Auto) Eos % (Auto) Baso % (Auto) Lymph # (Auto) Marshall # (Auto) Eos # (Auto) Baso # (Auto) Abs Immat Gran (auto) Absolute Neuts (auto) Absolute Nucleated RBC Nucleated RBC % (auto) Smear Tech's Comments VBG pH 7.42 VBG pCO2 46 VBG pO2 151 VBG HCO3 30 VBG O2 Saturation 99.0 VBG Base Excess 5.6 Sodium Potassium Chloride Carbon Dioxide Anion Gap BUN Creatinine Estim Creat Clear Calc Estimated GFR Random Glucose Calcium Phosphorus Magnesium Microbiology Microbiology Results: Microbiology 05/08/20 11:00 Blood - Venous Blood Culture - Preliminary No growth after 48 hours. 05/08/20 10:56 Blood - Venous Blood Culture - Preliminary No growth after 48 hours. 05/08/20 13:09 Urine clean catch - Clean Catch Midstream Urine Culture - Final No growth. Progress Note: A&P Assessment and plan (1) Acute alteration in mental status: Status: Acute (2) Alcohol abuse: Status: Acute (3) Acute hyponatremia: Status: Acute (4) Hypoxia: Status: Acute (5) Difficulty breathing: Status: Acute (6) Acute respiratory failure with hypoxia and hypercarbia: Status: Acute (7) DTs (delirium tremens): Status: Acute Assessment and Plan: Much improved with no further stigmata of alcohol withdrawal and at this point acute hypercapnia also resolved and probably was medication induced and we will recheck (8) Hypokalemia due to excessive renal loss of potassium: Status: Acute Assessment and Plan: In the process also of replacing potassium and due to Diamox I will recheck potassium this afternoon along with repeat blood gas off of oxygen support (9) Hyponatremia: Status: Acute Time Spent With Patient Time: Total time spent is greater than 50% in coordination of care (as documented) at patient's floor/unit and/or counseling patient: Total time spent with greater than 50% in coordination of care (as documented) at patient's floor/unit and/or counseling patient:: 40
--- NOTE | 2020-05-11 13:13 | HP_ITS ---
DATE OF SERVICE: 05/08/2020 PRIMARY CARE PROVIDER: Unknown. CHIEF COMPLAINT: Unresponsiveness. HISTORY OF PRESENT ILLNESS: A 69-year-old man presented to the ER after a neighbor found him to be unresponsive. Apparently, a neighbor who lives above him checked on him and found him in the recliner. EMS was called. Upon arrival of EMS, his oxygen saturation was noted to be 70%. He was placed on non-rebreather, which did increase his oxygen to 90%. The patient was weak and did not appear to have any known trauma. Not much history was obtained from the patient, unfortunately. In the ER, his CO2 was noted to be elevated and he was placed on BiPAP for about an hour. He was given an empiric dose of Zosyn for possible aspiration pneumonia. Repeat ABGs did appear to be improved. At one place on BiPAP, his blood pressure did go down, but did improve after he was taken off. He was also noted to have sodium of 125. Apparently both Nephrology and programming specialist were consulted by the ER provider. Ammonia was obtained, which was 34. Troponin 12.5, BNP 31. Sodium 125. Coronavirus PCR negative. Chest CT showed nonspecific minimal patchy reticular opacities in both lower lobes. Vital signs have remained stable. He has not had any further hypoxia. He will be admitted for further management and treatment of acute encephalopathy with aspiration pneumonia. PAST MEDICAL HISTORY: 1. COPD. 2. Emphysema. 3. Alcohol abuse; however, unable to obtain amount. PAST SURGICAL HISTORY: Not listed and unfortunately, the patient is unable to give any information due to being lethargic. FAMILY HISTORY: Unable to obtain due to patient's lethargy. ALLERGIES: ALLERGIES TO BEE STINGS. MEDICATIONS: 1. Albuterol sulfate 2 puffs p.o. q.6 hours p.r.n. for wheezing. 2. Aspirin 81 mg p.o. daily. 3. Atorvastatin calcium 40 mg p.o. daily. 4. Cholecalciferol 50 mcg p.o. daily. 5. Cyanocobalamin 1000 mcg p.o. daily. 6. Fluticasone propionate 2 puffs b.i.d. 7. Folic acid 1 mg p.o. daily. 8. Lisinopril 10 mg p.o. daily. 9. Logan-3 one cap p.o. b.i.d. 10. Tiotropium bromide 2 puffs daily. REVIEW OF SYSTEMS: Unable to obtain as patient is lethargic. PHYSICAL EXAMINATION: CONSTITUTIONAL: The patient is resting in bed with eyes closed. Opens to painful stimuli. VITAL SIGNS: 98.7, 80, 20, 103/54, 95% on 2 L. SKIN: Intact without rash or open sores. HEENT: Head is normocephalic, atraumatic. Eyes, pupils are PERRLA. Sclerae anicteric. Mouth and throat: Mucous membranes are intact and dry. NECK: Supple. No lymphadenopathy. No JVD noted. CHEST: Coarse throughout. HEART: Regular rate and rhythm. ABDOMEN: Positive bowel sounds. NEURO: Opens eyes to painful stimuli. Unable to perform an accurate cranial nerve examination. LABORATORY DATA: Sodium 125, potassium is 3.6, chloride is 77, bicarb is 27, BUN is 29, creatinine is 0.81, magnesium is 1.9, ferritin is 504, total bilirubin is 1.4. Total CK is 634, has alcohol level less than 10. Urine toxicology negative. ASSESSMENT/PLAN: A 69-year-old man who is being admitted for acute encephalopathy, possibly related to a seizure. He was found unresponsive by his neighbor on his chair. When EMS arrived, his oxygen saturation was 70%. Chest CT shows possible aspiration pneumonia. 1. Acute encephalopathy secondary to possible seizure at home. Does not appear the patient has any history of seizures. We will consult Neurology, seizure precautions. May be postictal at this time, that is why he is so lethargic. We will monitor neuro status closely. May need EEG at some point. 2. Aspiration pneumonia. It may have happened after his unconsciousness. We will treat with Zosyn. Follow blood cultures. 3. Emphysema. Continue albuterol. 4. Hypertension. Has been hypotensive. We will hold lisinopril for now. 5. Hyperlipidemia. Continue aspirin and statin. 6. Hyponatremia. Possibly related to dehydration. He did receive 2 L of IV fluid. We will recheck BMP. Nephrology consultation. 7. Deep vein thrombosis prophylaxis with heparin. 8. Case discussed with Dr. Stroud. Casi Loera, DELORIS Stroud MD JR/MODL / [id number] MTDD
--- NOTE | 2020-05-11 13:18 | CONS_ITS ---
DATE OF SERVICE: 05/09/2020 REASON FOR CONSULTATION: Consult requested by the medical team to evaluate and help manage the patient with hyponatremia. The patient is not able to give any history and all the history was obtained from the patient's medical record. The patient apparently was seen yesterday, found by the neighbor or caregiver on his recliner and was having difficulty breathing. He was having weakness, but there was no trauma. The EMS was called and he was brought into the ER. He had altered mental status. He was evaluated in the ER and admitted to the hospital. Sodium level on admission was 122, and hence renal consultation had been requested. He was given IV fluids and his sodium level has slowly improved to 130. He is not on any medication which can cause hyponatremia. It is unclear if he had GI fluid losses. PAST MEDICAL HISTORY: History of COPD, history of liver cancer, hemochromatosis, ETOH abuse. PERSONAL AND SOCIAL HISTORY: Patient is a current alcohol user, current every day smoker. It is unclear if he uses illicit substances. FAMILY HISTORY: Unknown. MEDICATIONS: At home include albuterol, aspirin, cholecalciferol, cyanocobalamin, fluticasone, folic acid, omega-3 fatty acids, and Spiriva. PHYSICAL EXAMINATION: GENERAL: Patient is resting in bed, awake, but is not giving good history and not able to follow commands. VITAL SIGNS: Blood pressure was 90/55, pulse 63, afebrile. HEENT: Shows pupils equal, round, and reactive bilaterally to light. Mucosa dry. There is no scleral icterus or conjunctival congestion. NECK: No jugular venous distention is noted. Neck was supple. CARDIOVASCULAR SYSTEM: S1, S2 without rub or murmur. RESPIRATORY SYSTEM: Air entry decreased in the bases. No crepitation or rhonchi is noted. ABDOMEN: Soft, nontender. No guarding is noted. Bowel sounds normal. EXTREMITIES: Showed no edema. There is no peripheral cyanosis or clubbing. LABORATORY DATA: Labs done recently; sodium 130, potassium 3.3, chloride , CO2 is 39, BUN 23, creatinine 0.72, hemoglobin 9.1, hematocrit 31, WBC is 8.4, platelets 160. IMPRESSION: 1. 69-year-old male with hyponatremia. Hyponatremia is likely due to hypovolemic hyponatremia. I do not have any urine or serum osmolality/urine sodium level to comment on the sodium level at this juncture. Given improvement of sodium level with hydration, he likely has hypovolemic hyponatremia. His sodium correction is appropriate. 2. Altered mental status due to multifactorial reasons. 3. Chronic obstructive pulmonary disease exacerbation. 4. Hypokalemia, abnormal potassium level. RECOMMENDATION: At this juncture, I would recommend continuation of gentle hydration. We can discontinue the IV fluids once he is able to take p.o. fluids. We should restrict free fluid on this patient to about 1500 mL a day. I recommend replacing potassium level. We will continue to follow the patient very closely. Thank you for allowing me to participate in medical management of patient. ADDENDUM: As patient's sodium level is improved appropriately, I am not ordering full workup for his hyponatremia. His TSH level was normal at 0.94. MD FREYA Castro/NASIR / [id number]
--- NOTE | 2020-05-11 14:38 | MHC.CM.PN ---
No rounds on this pt today. Medical record review. Per Dr. Miller, pt is following commands and remains on Bipap, AMS exacerbated by phenobarbital and Ativan. Continuing to observe. D/C plan at this time remains home with ex- to inlaw apartment with her. She will provide transportation. Will follow for d/c needs.
[2020-05-11] MEDS: methylPREDNISolone Sod Succ/PF 125 MG/2 ML VIAL 40 MG IVPUSH (14:54)
[2020-05-11 15:28] LABS: pH VBG 7.41 (7.32-7.43)
[2020-05-11 15:29] LABS: Base Excess VBG 26.6 mmol/L; HCO3 VBG 27 mmol/L; PCO2 VBG 41 mmHg; PO2 VBG 72 mmHg
[2020-05-11 15:35] LABS: Anion Gap 11 (12-20); Blood Urea Nitrogen 18 mg/dL (9-16); Calcium 8.4 mg/dL (8.4-10.2); Carbon Dioxide 27 mmol/L (22-29); Chloride 98 mmol/L (96-108); Creatinine Clr Calc Pharmacy 99.6; Estimated Glomerular Filt Rate > 60; Glucose Random 139 mg/dL (60-115); Magnesium 1.7 mg/dL (1.6-2.6); Potassium 3.2 mmol/l (3.3-5.1); Sodium 133 mmol/L (135-145)
[2020-05-11 20:37] LABS: Base Excess VBG -1.4 mmol/L; HCO3 VBG 23 mmol/L; PCO2 VBG 38 mmHg; PO2 VBG 57 mmHg; pH VBG 7.38 (7.32-7.43)
[2020-05-12] VITALS (12 sets, daily range): BP systolic 98–137; BP diastolic 45–71; PULSE 61–88; RESP 10–18; TEMP 36–37; O2SAT 91–96
[2020-05-12] MEDS: Thiamine HCL 200 MG in 0.9 % Sodium Chloride 100 ML 204 MG IV (01:15)
[2020-05-12] MEDS: 0.9 % Sodium Chloride Flush 3 ML SYRINGE IVFLUSH ×3 (01:15→17:07)
[2020-05-12] MEDS: methylPREDNISolone Sod Succ/PF 125 MG/2 ML VIAL 40 MG IVPUSH (01:17)
[2020-05-12] MEDS: Pantoprazole Sodium 40 MG/10 ML VIAL IVPUSH (06:07)
[2020-05-12 06:10] LABS: MANUAL DIFF FLAG NO
[2020-05-12 06:11] LABS: INTERNATIONAL NORM RATIO 0.9 (0.9-1.1); Prothrombin Time 11.2 SEC (10.8-13.0)
[2020-05-12 06:14] LABS: D Dimer 444 NG/ML
[2020-05-12 06:21] LABS: Basophils Percent Auto 0.1 % (0-2); Hematocrit 30.7 % (42-52); Hemoglobin 10.7 g/dl (14.0-18.0); Imm Gran Abs Auto 0.06 X10*3/uL (0.00-0.03); Imm Gran Pct Auto 0.8 % (0.0-0.4); Lymphocytes Absolute Auto 0.7 X10*3/uL (1.2-4.9); Lymphocytes Percent Auto 9.6 % (20-40); Mean Corpuscular HGB Conc 34.9 g/dl (31.0-36.0); Mean Corpuscular Hemoglobin 33.1 pg (27.0-33.0); Mean Platelet Volume 9.8 fL (9.4-12.4); Monocytes Absolute Auto 0.4 X10*3/uL (0.1-1.2); Monocytes Percent Auto 5.4 % (2-11); Neutrophils Absolute Auto 6.5 X10*3/uL (2.0-8.3); Neutrophils Percent Auto 84.1 % (45-73); Platelet Count 160 X10*3/uL (160-400); Red Blood Count 3.23 X10*6/uL (4.60-5.80); Red Cell Distribution Width 14.4 % (11.0-16.0); White Blood Count 7.7 X10*3/uL (4.8-10.8)
[2020-05-12 06:31] LABS: HCO3 VBG 22 mmol/L; PCO2 VBG 35 mmHg; PO2 VBG 134 mmHg
[2020-05-12 06:45] LABS: Alanine Aminotransferase 26 U/L (0-40); Albumin Level 3.2 g/dL (3.5-5.0); Alkaline Phosphatase 47 U/L (39-117); Anion Gap 11 (12-20); Aspartate Amino Transferase 26 U/L (5-37); Bilirubin Direct 0.4 mg/dL (0.0-0.5); Bilirubin Total 0.4 mg/dL (0.0-1.0); Blood Urea Nitrogen 17 mg/dL (9-16); Calcium 8.6 mg/dL (8.4-10.2); Carbon Dioxide 22 mmol/L (22-29); Chloride 103 mmol/L (96-108); Creatinine Clr Calc Pharmacy 104.6; Estimated Glomerular Filt Rate > 60; Glucose Random 134 mg/dL (60-115); Lactate Dehydrogenase 171 U/L (118-273); Magnesium 1.7 mg/dL (1.6-2.6); Phosphorus 2.3 mg/dL (2.7-4.5); Potassium 4.3 mmol/l (3.3-5.1); Sodium 132 mmol/L (135-145); Total Protein 5.2 g/dL (6.5-8.0)
--- NOTE | 2020-05-12 06:51 | P.PNCC_ITS ---
Subjective Subjective Date of Service: 05/12/20 Interval History: 70-year-old male presented with altered mental status based on delirium tremens went through a withdrawal protocol with phenobarbital and benzodiazepines and then developed acute hypercarbic respiratory failure requiring temporary BiPAP and pCO2 descended from the 90s and he could self corrected coming off the BiPAP now for greater than 24 hours with normal pCO2 is in the 30-40 range and fully awake with appropriate cognitive function and no stigmata of withdrawal any longer the only metabolic issue is some very mild p ersistent hyponatremia at 130 Physical Exam Vital Signs: Vital Signs: Last Vital Signs Temp 98.6 F 05/12/20 03:00 Pulse 63 05/12/20 06:00 Resp 16 05/12/20 06:00 BP 126/65 05/12/20 06:00 Pulse Ox 94 05/12/20 06:00 Body Mass Index 22.3 Const: Other: Awake alert and oriented and neurologically nonfocal Cardiac exam with normal S1 and normal S2 and no gallops or murmurs and no neck vein distension with good bilateral carotid upstrokes Chest is clear with no adventitious sounds Abdomen is benign no again a megaly good bowel sounds Good peripheral pulses no peripheral edema and skin is intact Objective Data Labs CBC & Chem 7: 05/12/20 05:15 05/12/20 05:15 Labs: Laboratory Results - last 24 hr 05/11/20 05/11/20 05/11/20 15:08 15:08 20:26 WBC RBC Hgb Hct MCV MCH MCHC RDW Plt Count MPV Immature Gran % (Auto) Neut % (Auto) Lymph % (Auto) [place] % (Auto) Eos % (Auto) Baso % (Auto) Lymph # (Auto) [place] # (Auto) Eos # (Auto) Baso # (Auto) Abs Immat Gran (auto) Absolute Neuts (auto) Absolute Nucleated RBC Nucleated RBC % (auto) PT INR APTT D-Dimer VBG pH 7.41 7.38 VBG pCO2 41 38 VBG pO2 72 57 VBG HCO3 27 23 VBG O2 Saturation 92.0 84.0 VBG Base Excess 26.6 -1.4 Sodium 133 L Potassium 3.2 L Chloride 98 Carbon Dioxide 27 Anion Gap 11 L BUN 18 H Creatinine 0.63 Estim Creat Clear Calc 99.6 Estimated GFR > 60 Random Glucose 139 H Calcium 8.4 Phosphorus Magnesium 1.7 Total Bilirubin Direct Bilirubin AST ALT Alkaline Phosphatase Lactate Dehydrogenase Total Creatine Kinase Total Protein Albumin 05/12/20 05/12/20 05/12/20 05:15 05:15 05:15 WBC 7.7 RBC 3.23 L Hgb 10.7 L Hct 30.7 L MCV 95.0 MCH 33.1 H MCHC 34.9 RDW 14.4 Plt Count 160 MPV 9.8 Immature Gran % (Auto) 0.8 H Neut % (Auto) 84.1 H Lymph % (Auto) 9.6 L [place] % (Auto) 5.4 Eos % (Auto) 0.0 Baso % (Auto) 0.1 Lymph # (Auto) 0.7 L [place] # (Auto) 0.4 Eos # (Auto) 0.0 Baso # (Auto) 0.0 Abs Immat Gran (auto) 0.06 H Absolute Neuts (auto) 6.5 Absolute Nucleated RBC 0.000 Nucleated RBC % (auto) 0.0 PT 11.2 INR 0.9 APTT 26.0 D-Dimer 444 VBG pH VBG pCO2 VBG pO2 VBG HCO3 VBG O2 Saturation VBG Base Excess Sodium 132 L Potassium 4.3 D Chloride 103 Carbon Dioxide 22 Anion Gap 11 L BUN 17 H Creatinine 0.60 Estim Creat Clear Calc 104.6 Estimated GFR > 60 Random Glucose 134 H Calcium 8.6 Phosphorus 2.3 L Magnesium 1.7 Total Bilirubin 0.4 Direct Bilirubin 0.4 AST 26 D ALT 26 Alkaline Phosphatase 47 D Lactate Dehydrogenase 171 Total Creatine Kinase 33 L D Total Protein 5.2 L Albumin 3.2 L 05/12/20 05:15 WBC RBC Hgb Hct MCV MCH MCHC RDW Plt Count MPV Immature Gran % (Auto) Neut % (Auto) Lymph % (Auto) [place] % (Auto) Eos % (Auto) Baso % (Auto) Lymph # (Auto) [place] # (Auto) Eos # (Auto) Baso # (Auto) Abs Immat Gran (auto) Absolute Neuts (auto) Absolute Nucleated RBC Nucleated RBC % (auto) PT INR APTT D-Dimer VBG pH 7.40 VBG pCO2 35 VBG pO2 134 VBG HCO3 22 VBG O2 Saturation 99.0 VBG Base Excess -2.0 Sodium Potassium Chloride Carbon Dioxide Anion Gap BUN Creatinine Estim Creat Clear Calc Estimated GFR Random Glucose Calcium Phosphorus Magnesium Total Bilirubin Direct Bilirubin AST ALT Alkaline Phosphatase Lactate Dehydrogenase Total Creatine Kinase Total Protein Albumin Microbiology Microbiology Results: Microbiology 05/08/20 11:00 Blood - Venous Blood Culture - Preliminary No growth after 48 hours. 05/08/20 10:56 Blood - Venous Blood Culture - Preliminary No growth after 48 hours. 05/08/20 13:09 Urine clean catch - Clean Catch Midstream Urine Culture - Final No growth. Progress Note: A&P Assessment and plan (1) Hyponatremia: Status: Acute (2) Hypokalemia due to excessive renal loss of potassium: Status: Acute (3) DTs (delirium tremens): Status: Acute (4) Acute respiratory failure with hypoxia and hypercarbia: Status: Acute (5) Acute alteration in mental status: Status: Acute (6) Alcohol abuse: Status: Acute Assessment and Plan: So he no longer has any dependence ease and simply needs rehab and because he had spent the week on high-dose methylprednisolone I started him on 30 of p.o. prednisone which can be weaned over about a week's time and might need to see [place] some body in relation to both alcohol and smoking cessation Time Spent With Patient Time: Total time spent is greater than 50% in coordination of care (as documented) at patient's floor/unit and/or counseling patient: Total time spent with greater than 50% in coordination of care (as documented) at patient's floor/unit and/or counseling patient:: 25
[2020-05-12] MEDS: Cholecalciferol (Vitamin D3) 25 MCG TABLET 50 MCG PO (08:16)
[2020-05-12] MEDS: predniSONE 10 MG TABLET 30 MG PO (08:16)
[2020-05-12] MEDS: Atorvastatin Calcium 40 MG TABLET PO (08:16)
[2020-05-12] MEDS: Aspirin Enteric Coated 81 MG TABLET.DR PO (08:16)
[2020-05-13 05:49] LABS: Base Excess VBG -0.3 mmol/L; HCO3 VBG 24 mmol/L; PCO2 VBG 39 mmHg; PO2 VBG 50 mmHg; pH VBG 7.39 (7.32-7.43)
[2020-05-13 05:55] LABS: INTERNATIONAL NORM RATIO 0.9 (0.9-1.1); Prothrombin Time 11.2 SEC (10.8-13.0)
[2020-05-13 05:58] LABS: D Dimer 659 NG/ML
[2020-05-13 06:19] LABS: Anion Gap 12 (12-20); Blood Urea Nitrogen 18 mg/dL (9-16); Carbon Dioxide 23 mmol/L (22-29); Chloride 102 mmol/L (96-108); Creatinine Clr Calc Pharmacy 102.9; Estimated Glomerular Filt Rate > 60; Glucose Random 100 mg/dL (60-115); Magnesium 1.6 mg/dL (1.6-2.6); Phosphorus 1.7 mg/dL (2.7-4.5); Sodium 133 mmol/L (135-145)
[2020-05-13] MEDS: 0.9 % Sodium Chloride Flush 3 ML SYRINGE IVFLUSH ×2 (07:51→15:56)
[2020-05-13 08:00] VITALS: BP 130/70; PULSE 81; RESP 18; TEMP 36.1; O2SAT 94
[2020-05-13] MEDS: predniSONE 10 MG TABLET 30 MG PO (08:18)
[2020-05-13] MEDS: Cholecalciferol (Vitamin D3) 25 MCG TABLET 50 MCG PO (08:18)
[2020-05-13] MEDS: Aspirin Enteric Coated 81 MG TABLET.DR PO (08:19)
[2020-05-13] MEDS: Atorvastatin Calcium 40 MG TABLET PO (08:19)
--- NOTE | 2020-05-13 12:25 | CONS_ITS ---
DATE OF SERVICE: 05/13/2020 CHIEF COMPLAINT: Unresponsiveness. HISTORY OF PRESENT ILLNESS: Mr. Nelson is a 70-year-old gentleman with a known history of alcohol abuse, COPD with emphysema, who apparently was found by his neighbor unresponsive. Therefore, EMS was called to the scene. He was found to be saturating down to 70%, placed on a non-rebreather, brought to the [facility] ED for further evaluation. In the ER, he was still with altered mental status. He had an initial blood gas of pH 7.47 with a pCO2 of 60 and a pO2 of 81. He was initially placed on BiPAP and subsequently was able to be transferred to the floor once his mentation improved, he was still confused. The patient started to withdrawal. Therefore, placed on phenobarbital and also benzos. Subsequently after that, his mentation became worse and the team was called to his bedside due to unresponsive state. ABG was done, re-done at that point and CO2 climbed to about 98. The patient was placed on BiPAP, transferred to the unit. In the unit, he was maintained on BiPAP and he was withdrawn from all his psychotropic medications. The patient has been doing very well. He was taken off BiPAP and has been on nasal cannula O2, trying to maintain a pulse ox above 90%. Again, the patient has been off BiPAP now for couple of nights and his last venous gas from this morning suggesting a pH 7.39, venous pCO2 of 39, and venous PaO2 of 50, which is reassuring that he is maintaining adequate gas exchange on few liters of oxygen, not requiring noninvasive therapies. The patient is still weak and is still not able to answer questions fully. Indeed, he likely has a component of Wernicke-Korsakoff from his alcohol use per the chart. REVIEW OF SYSTEMS: Unable to be obtained due to the patient's medical issues. PAST MEDICAL HISTORY: Please refer to the MAR for the full list. COPD with emphysema, alcohol abuse. PAST SURGICAL HISTORY: None noted. FAMILY HISTORY: The patient is unable to obtain due to his mental issues. ALLERGIES: TO BEE STINGS. MEDICATIONS: He was getting Spiriva as an outpatient in addition to albuterol. Currently, he is taking aspirin, Lipitor, albuterol, and prednisone 30 mg daily. SOCIAL HISTORY: Positive for alcohol abuse. It is not clear if he stops smoking. PHYSICAL EXAMINATION: VITAL SIGNS: The patient is hemodynamically stable, saturating 94%, currently on room air to couple liters. GENERAL: The patient is comfortable, but confused, cachectic appearing. HEENT: Pupils are equal and reactive to light. Dry mucous membranes. LUNGS: Very diminished. Hard to expand his lungs. He looks barrel-chested. Distant heart sounds. EXTREMITIES: Appeared to be cachectic. No cyanosis noted. LABORATORY DATA: Chemistries significant for a sodium of 133, which has been low, bicarb was actually normal at 23, BUN of 18, creatinine of 0.61, phosphorus low at 1.7, is repleted. Serology: His COVID test was negative. His urine tox was negative. Salicylates was undetectable. His last venous gas again 7.39 with a pCO2 of 39. His D-dimer had been elevated. On 05/08, he did have a CT scan of the chest personally reviewed by me demonstrating bullous emphysema with minimal patchy reticular opacities at the bases. The microbiology has been negative. ASSESSMENT: Mr. Nelson is a 70-year-old gentleman with significant alcohol abuse, advanced emphysema, presenting with altered mental status. IMPRESSION: 1. Acute on chronic hypercarbic respiratory failure in addition to hypoxic respiratory failure. The patient responded well to the supportive care with BiPAP initially. Partly, his respiratory failure was a component of his alcohol use and medications potential with polypharmacy and medication interaction resulting in altering mentation. 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 2. Hypercarbic respiratory failure, appears that he has normalized that after the treatment with his initial supportive care. The patient does not require noninvasive therapy or BiPAP therapy while at home. It is not clear if he could tolerate that therapy at this point anyway. 3. Chronic obstructive pulmonary disease, this is advanced. We will start him on respiratory therapy, although hard to know if he is going to be able to use inhalers, so therefore stay with nebulized therapy. The patient will likely need assistance at home or even placement due to his chronic disease. He is welcome to follow up with us in the outpatient pulmonary clinic. Further recommendations based on forthcoming data. MD LENORA Jeronimo/NASIR / [id number]
--- NOTE | 2020-05-13 13:15 | HO.PM.IMPN ---
Subjective Subjective Date of Service: 05/13/20 Interval History: Patient seen and examined at bedside Patient remains confused Patient was reporting weakness Review of Systems CVS denies any chest pain Abdomen denies any abdominal pain Respiratory no shortness of breath or cough Neurologic Neurologic: Reports confusion Psychiatric Psychiatric: Reports confusion Physical Exam Vital Signs: Vital Signs: Last Vital Signs Temp 96.9 F 05/13/20 08:00 Pulse 81 05/13/20 08:00 Resp 18 05/13/20 08:00 BP 130/70 05/13/20 08:00 Pulse Ox 94 05/13/20 08:00 Body Mass Index 22.3 Const: General: no acute distress and confusion Orientation/consciousness: confusion Resp: Effort & Inspection: normal respiratory effort Cardio: Jugular venous distension: no JVD GI: Inspection: Yes normal to inspection Neuro: General: confusion Motor exam (neuro): 5/5 motor strength present throughout Objective Data Current Medications Generic Name Dose Route Start Last Admin Trade Name Freq PRN Reason Stop Dose Admin Albuterol Sulfate 2.5 mg 05/10/20 11:59 Albuterol Sulfate (0.083%) 2.5 Mg/3 Ml Vial.Neb INHALE Q2H PRN Wheezing Aspirin 81 mg 05/09/20 09:00 05/13/20 08:19 Aspirin Enteric Coated 81 Mg Tablet.Dr PO 81 mg DAILY FRANCHESCA Administration Atorvastatin Calcium 40 mg 05/09/20 09:00 05/13/20 08:19 Atorvastatin Calcium 40 Mg Tablet PO 40 mg DAILY FRANCHESCA Administration Prednisone 30 mg 05/12/20 09:00 05/13/20 08:18 Prednisone 10 Mg Tablet PO 30 mg DAILY FRANCHESCA Administration Sodium Chloride 3 ml 05/09/20 00:00 05/13/20 07:51 0.9 % Sodium Chloride Flush 3 Ml Syringe IVFLUSH 3 ml QSHIFT FRANCHESCA Administration Vitamin D 50 mcg 05/09/20 09:00 05/13/20 08:18 Cholecalciferol (Vitamin D3) 25 Mcg Tablet PO 50 mcg DAILY FRANCHESCA Administration Labs CBC & Chem 7: 05/12/20 05:15 05/13/20 05:35 Microbiology Microbiology Results: Microbiology 05/08/20 11:00 Blood - Venous Blood Culture - Final No growth after 5 days. 05/08/20 10:56 Blood - Venous Blood Culture - Final No growth after 5 days. 05/08/20 13:09 Urine clean catch - Clean Catch Midstream Urine Culture - Final No growth. Assessment and Plan (1) Acute alteration in mental status: Status: Acute (2) Alcohol abuse: Status: Acute (3) Acute hyponatremia: Status: Acute (4) Difficulty breathing: Status: Acute Assessment and Plan: 69-year-old male presented with confusion, possible seizure found to be hypoxic and hypotensive, placed on oxygen, CT head on admission shows no acute abnormality, ABG shows pCO2 retention was not acidotic, patient was placed on phenobarbital protocol, patient developed hypercapnic respiratory failure after receiving phenobarbital, transferred to ICU placed on BiPAP, hypercapnic respiratory failure resolved, patient was transferred to floor Acute hypercapnic respiratory failure with underlying COPD likely medication induced resolving Off BiPAP PCO2 improved Continue nebulizer Wean down steroids Seen by pulmonology Toxic metabolic Encephalopathy likely multifactorial from alcohol abuse, wernicke encephalopathy hypoxia and hyponatremia , hypercapnic respiratory failure improving Patient is more awake and alert still confused Treat underlying condition Ammonia level was normal on admission Seen by Neurology recommended wernicke and IV thiamine Significant alcohol abuse with withdrawal Withdrawal resolving Phenobarbital stopped For sedation Monitor electrolytes Continue IV thiamine Hyponatremia improving Sodium 133 today Avoid over-correction Monitor sodium closely Acute hypoxic respiratory failure likely secondary to underlying COPD Hypoxia resolved COVID PCR negative Continue inhalers Continue oxygen supplementation DVT prophylaxis heparin subQ
[2020-05-13 16:00] VITALS: BP 133/82; PULSE 95; RESP 20; TEMP 37.2; O2SAT 96
[2020-05-13 23:24] VITALS: BP 142/73; PULSE 75; RESP 16; O2SAT 94
[2020-05-14] VITALS (8 sets, daily range): BP systolic 100–126; BP diastolic 50–60; PULSE 79–98; RESP 12–18; TEMP 36.3–36.7; O2SAT 90–97
[2020-05-14 05:39] LABS: Base Excess VBG 3.6 mmol/L; HCO3 VBG 27 mmol/L; PCO2 VBG 40 mmHg; PO2 VBG 44 mmHg; pH VBG 7.44 (7.32-7.43)
[2020-05-14 05:51] LABS: Prothrombin Time 11.5 SEC (10.8-13.0)
[2020-05-14 05:54] LABS: D Dimer 587 NG/ML
[2020-05-14] MEDS: Albuterol/Iprat 2.5/0.5MG 3 ML AMPUL.NEB INHALE ×3 (07:38→20:21)
[2020-05-14] MEDS: 0.9 % Sodium Chloride Flush 3 ML SYRINGE IVFLUSH ×3 (08:12→22:34)
[2020-05-14] MEDS: Aspirin Enteric Coated 81 MG TABLET.DR PO (08:12)
[2020-05-14] MEDS: Cholecalciferol (Vitamin D3) 25 MCG TABLET 50 MCG PO (08:12)
[2020-05-14] MEDS: predniSONE 10 MG TABLET 30 MG PO (08:13)
[2020-05-14] MEDS: Atorvastatin Calcium 40 MG TABLET PO (08:13)
[2020-05-14] MEDS: Thiamine HCL 100 MG TABLET PO (08:13)
[2020-05-14 10:02] LABS: Anion Gap 11 (12-20); Blood Urea Nitrogen 20 mg/dL (9-16); Calcium 8.5 mg/dL (8.4-10.2); Carbon Dioxide 27 mmol/L (22-29); Chloride 99 mmol/L (96-108); Creatinine Clr Calc Pharmacy 101.2; Estimated Glomerular Filt Rate > 60; Glucose Random 102 mg/dL (60-115); Magnesium 1.4 mg/dL (1.6-2.6); Phosphorus 3.2 mg/dL (2.7-4.5); Potassium 3.3 mmol/l (3.3-5.1); Sodium 134 mmol/L (135-145)
--- NOTE | 2020-05-14 10:12 | PC.NURSE ---
CRITICAL MAGNESIUM OF 1.4, MD NOTIFIED. ORDERED MAGNESIUM 2G IV X 1. WILL CONTINUE TO MONITOR.
[2020-05-14] MEDS: Heparin Sodium,Porcine 5,000 UNIT/ML VIAL 5000 UNIT SUBCUT ×2 (10:16→22:34)
[2020-05-14] MEDS: Magnesium Sulfate/H2O 2 GM/50 ML PIGGYBACK IV (10:17)
--- NOTE | 2020-05-14 10:24 | MHC.CM.PN ---
Information obtained from ICU rounds: RN, Web Production Designer and Ravi Kc Pt extremely altered: not responding to purposeful conversation: Seen by Heather De for ? competency and ability to make his own decisions. Per verbal conversation with Heather, Pt DOES NOT have any insight into his condition and cannot respond to questions in a cognizant or meaningful way. CM requested ICU MD note this and write for activation of HCP (on file) This will facilitate transition to next level of care - most likely, LTC at a nursing facility. Referrals will be updated and expanded in anticipation of HCP invocation and placement needs.
--- NOTE | 2020-05-14 10:57 | HO.PM.IMPN ---
Subjective Subjective Date of Service: 05/14/20 Interval History: Patient seen and examined at bedside Patient remains confused Patient falls asleep needs lot of motivation Review of Systems CVS denies any chest pain Abdomen denies any abdominal pain Respiratory no shortness of breath or cough Neurologic Neurologic: Reports confusion Psychiatric Psychiatric: Reports confusion Physical Exam Vital Signs: Vital Signs: Last Vital Signs Temp 97.8 F 05/14/20 08:00 Pulse 80 05/14/20 08:00 Resp 12 05/14/20 08:00 BP 126/60 05/14/20 08:00 Pulse Ox 90 L 05/14/20 08:00 Body Mass Index 22.3 Const: General: no acute distress and confusion Orientation/consciousness: confusion Resp: Effort & Inspection: normal respiratory effort Cardio: Jugular venous distension: no JVD GI: Inspection: Yes normal to inspection Neuro: General: confusion Motor exam (neuro): 5/5 motor strength present throughout Objective Data Current Medications Generic Name Dose Route Start Last Admin Trade Name Freq PRN Reason Stop Dose Admin Albuterol/Ipratropium 3 ml 05/14/20 08:00 05/14/20 07:38 Albuterol/Iprat 2.5/0.5mg 3 Ml Ampul.Neb INHALE 3 ml RQ6H WHILE AWAKE FRANCHESCA Administration Aspirin 81 mg 05/09/20 09:00 05/14/20 08:12 Aspirin Enteric Coated 81 Mg Tablet. PO 81 mg DAILY FRANCHESCA Administration Atorvastatin Calcium 40 mg 05/09/20 09:00 05/14/20 08:13 Atorvastatin Calcium 40 Mg Tablet PO 40 mg DAILY FRANCHESCA Administration Heparin Sodium (Porcine) 5,000 unit 05/14/20 11:00 05/14/20 10:16 Heparin Sodium,Porcine 5,000 Unit/Ml Vial SUBCUT 5,000 unit Q12H FRANCHESCA Administration Magnesium Sulfate 2 gm in 50 mls @ 25 mls/hr 05/14/20 10:06 05/14/20 10:17 IV 05/14/20 12:05 25 mls/hr ONCE ONE Administration Magnesium Oxide 400 mg 05/14/20 17:30 Magnesium Oxide 400 Mg Tablet PO BIDPC FRANCHESCA Prednisone 30 mg 05/12/20 09:00 05/14/20 08:13 Prednisone 10 Mg Tablet PO 30 mg DAILY FRANCHESCA Administration Sodium Chloride 3 ml 05/09/20 00:00 05/14/20 08:12 0.9 % Sodium Chloride Flush 3 Ml Syringe IVFLUSH 3 ml QSHIFT FRANCHESCA Administration Thiamine HCl 100 mg 05/14/20 09:00 05/14/20 08:13 Thiamine Hcl 100 Mg Tablet PO 100 mg DAILY FRANCHESCA Administration Vitamin D 50 mcg 05/09/20 09:00 05/14/20 08:12 Cholecalciferol (Vitamin D3) 25 Mcg Tablet PO 50 mcg DAILY FRANCHESCA Administration Labs CBC & Chem 7: 05/12/20 05:15 05/14/20 05:25 Microbiology Microbiology Results: Microbiology 05/08/20 11:00 Blood - Venous Blood Culture - Final No growth after 5 days. 05/08/20 10:56 Blood - Venous Blood Culture - Final No growth after 5 days. 05/08/20 13:09 Urine clean catch - Clean Catch Midstream Urine Culture - Final No growth. Assessment and Plan (1) Acute alteration in mental status: Status: Acute (2) Alcohol abuse: Status: Acute (3) Acute hyponatremia: Status: Acute (4) Difficulty breathing: Status: Acute Assessment and Plan: 69-year-old male presented with confusion, possible seizure found to be hypoxic and hypotensive, placed on oxygen, CT head on admission shows no acute abnormality, ABG shows pCO2 retention was not acidotic, patient was placed on phenobarbital protocol, patient developed hypercapnic respiratory failure after receiving phenobarbital, transferred to ICU placed on BiPAP, hypercapnic respiratory failure resolved, patient was transferred to floor Acute hypercapnic respiratory failure with underlying COPD likely medication induced resolving Off BiPAP PCO2 improved Continue nebulizer Wean down steroids Seen by pulmonology Toxic metabolic Encephalopathy likely multifactorial from alcohol abuse, wernicke encephalopathy hypoxia and hyponatremia , hypercapnic respiratory failure improving Patient still confused, falls asleep easily needs motivation Treat underlying condition Ammonia level was normal on admission Seen by Neurology recommended possible wernicke and received IV thiamine Continue p.o. thiamine for now Patient was seen by psych patient was deemed incompetent, healthcare proxy activated Significant alcohol abuse with withdrawal resolved Phenobarbital stopped For sedation Monitor electrolytes Continue thiamine Hyponatremia improving Sodium 133 today Avoid over-correction Monitor sodium closely COPD COVID PCR negative Continue nebulizer Wean down steroids DVT prophylaxis heparin subQ
--- NOTE | 2020-05-14 16:43 | PC.NURSE ---
Addendum entered by Angelica Marie RN 05/14/20 18:49: MESSAGE LEFT ON [facility]S VOICEMAIL ABOUT TRANSFER TO [facility], TELEPHONE NUMBER [id number]. Original Note: AFEBRILE. VSS. ALERT TO SELF, OCCASIONALLY KNOWS HE IS AT THE HOSPITAL. PSYCH PA BEDSIDE FOR EVALUATION THIS MORNING AND AT THIS TIME PATIENT IS UNABLE TO MAKE ANY MEDICAL DECISIONS FOR HIMSELF. PT/OT WORKED WITH PATIENT THIS AFTERNOON. INC OF URINE X 1, TEXT CATH APPLIED. SMEARING WITH [employer]. BATHED, Q2H REPO/OOB TO RECLINER, BARRIER CREAM APPLIED, PILLOWS UTILIZED, TELESITTER BEDSIDE FOR SAFETY. ATTEMPTED TO CALL HCP FOR UPDATE, NO ANSWER AT THIS TIME.
--- NOTE | 2020-05-14 17:22 | P.CNPS_ITS ---
History of Present Illness Date of Service: 05/14/2020 Chief Complaint: encephalopathy Reason for Consult: Capacity evaluation Requesting physician: Cedric Stroud Discussed with referring provider: Yes Sources of Information: patient interviewed and chart reviewed HPI Narrative: patient is a 70 year old male currently medically admitted for alcohol withdrawal who developed respiratory failure and DT's. Capacity evaluation requested to assess patient's capacity to make decisions related to discharge placement Patient seen in room 254 (ICU). Patient, initially asleep, though easy to wake. Patient unable to provide any information, answering I don't know to several questions, then mumbling. Unable to respond regarding wishes for placement following discharge, unable to respond regarding reason for current admission, unable to respond regarding where he currently is. Past Psychiatric History: unknown Medical Evaluation Reviewed: Yes Review of Systems Review of Systems Yes Unobtainable due to mental status ON LICENSE OF [facility] Medical History COPD (chronic obstructive pulmonary disease) ETOH abuse Hemochromatosis Liver cancer Diagnostics Vital Signs (24Hr): Vital Signs - 24 hr 05/13/20 23:24 05/14/20 07:40 05/14/20 08:00 Temperature 97.8 F Pulse Rate 75 85 80 Respiratory Rate 16 12 Blood Pressure 142/73 H 126/60 Pulse Oximetry 94 90 L 05/14/20 13:35 05/14/20 15:33 05/14/20 15:39 Temperature 97.9 F Pulse Rate 80 79 86 Respiratory Rate 16 Blood Pressure 126/60 100/50 L Pulse Oximetry 90 L 93 Body Mass Index 22.3 Labs Results: 05/12/20 05:15 05/14/20 05:25 Labs: Laboratory Results - last 48 hr 05/13/20 05/13/20 05/13/20 05:34 05:35 05:35 PT 11.2 INR 0.9 D-Dimer 659 VBG pH 7.39 VBG pCO2 39 VBG pO2 50 VBG HCO3 24 VBG O2 Saturation 76.0 VBG Base Excess -0.3 Sodium 133 L Potassium 4.0 Chloride 102 Carbon Dioxide 23 Anion Gap 12 BUN 18 H Creatinine 0.61 Estim Creat Clear Calc 102.9 Estimated GFR > 60 Random Glucose 100 Calcium 9.0 Phosphorus 1.7 L Magnesium 1.6 05/14/20 05/14/20 05/14/20 05:25 05:25 05:25 PT 11.5 INR 1.0 D-Dimer 587 VBG pH 7.44 H VBG pCO2 40 VBG pO2 44 VBG HCO3 27 VBG O2 Saturation 66.0 VBG Base Excess 3.6 Sodium 134 L Potassium 3.3 Chloride 99 Carbon Dioxide 27 Anion Gap 11 L BUN 20 H Creatinine 0.62 Estim Creat Clear Calc 101.2 Estimated GFR > 60 Random Glucose 102 Calcium 8.5 Phosphorus 3.2 Magnesium 1.4 L* Imaging Radiology Impressions: ITS Impressions Head CT 05/08/20 10:17 IMPRESSION: No acute intracranial process seen. Age-related cerebral volume loss with chronic small vessel ischemic changes. There is no acute process seen in the chest or the abdomen. Diffuse emphysema with bullous changes in both upper lobes. Nonspecific minimal patchy reticular opacities in both lower lobes. No confluent infiltrate, pleural effusion or pneumothorax seen. Mild constipation. Sigmoid diverticulosis without diverticulitis. Chest X-Ray 05/08/20 10:18 IMPRESSION: Bilateral increase interstitial markings and patchy opacity suggestive of interstitial pneumonitis. No confluent infiltrate or pleural effusion seen. Abdomen/Pelvis CT 05/08/20 11:33 IMPRESSION: No acute intracranial process seen. Age-related cerebral volume loss with chronic small vessel ischemic changes. There is no acute process seen in the chest or the abdomen. Diffuse emphysema with bullous changes in both upper lobes. Nonspecific minimal patchy reticular opacities in both lower lobes. No confluent infiltrate, pleural effusion or pneumothorax seen. Mild constipation. Sigmoid diverticulosis without diverticulitis. Chest CT 05/08/20 11:33 IMPRESSION: No acute intracranial process seen. Age-related cerebral volume loss with chronic small vessel ischemic changes. There is no acute process seen in the chest or the abdomen. Diffuse emphysema with bullous changes in both upper lobes. Nonspecific minimal patchy reticular opacities in both lower lobes. No confluent infiltrate, pleural effusion or pneumothorax seen. Mild constipation. Sigmoid diverticulosis without diverticulitis. Chest X-Ray 05/10/20 00:00 IMPRESSION: Patchy airspace opacities in the lung bases which could be due to a viral or atypical infectious process. Chronic aspiration is also possible. Mental Status Exam Mental Status Exam Patient Appearance: Well Grooomed Level of Consciousness: Awake, Disoriented and Lethargic Patient Behavior: Confused Affect Description: Flat Speech Pattern: Garbled and Delayed Thought Process: Disoriented Thought Content: positive for Disoriented Judgement: Poor Medications Medications Current Medications Generic Name Dose Route Start Last Admin Trade Name Zoe PRKayla Reason Stop Dose Admin Albuterol/Ipratropium 3 ml 05/14/20 08:00 05/14/20 15:35 Albuterol/Iprat 2.5/0.5mg 3 Ml Ampul.Neb INHALE 3 ml RQ6H WHILE AWAKE FRANCHESCA Administration Aspirin 81 mg 05/09/20 09:00 05/14/20 08:12 Aspirin Enteric Coated 81 Mg Tablet.Dr PO 81 mg DAILY FRANCHESCA Administration Atorvastatin Calcium 40 mg 05/09/20 09:00 05/14/20 08:13 Atorvastatin Calcium 40 Mg Tablet PO 40 mg DAILY FRANCHESCA Administration Heparin Sodium (Porcine) 5,000 unit 05/14/20 11:00 05/14/20 10:16 Heparin Sodium,Porcine 5,000 Unit/Ml Vial SUBCUT 5,000 unit Q12H FRANCHESCA Administration Magnesium Oxide 400 mg 05/14/20 17:30 Magnesium Oxide 400 Mg Tablet PO BIDPC FRANCHESCA Prednisone 20 mg 05/15/20 09:00 Prednisone 20 Mg Tablet PO DAILY [facility] Sodium Chloride 3 ml 05/09/20 00:00 05/14/20 15:37 0.9 % Sodium Chloride Flush 3 Ml Syringe IVFLUSH 3 ml QSHIFT FRANCHESCA Administration Thiamine HCl 100 mg 05/14/20 09:00 05/14/20 08:13 Thiamine Hcl 100 Mg Tablet PO 100 mg DAILY FRANCHESCA Administration Vitamin D 50 mcg 05/09/20 09:00 05/14/20 08:12 Cholecalciferol (Vitamin D3) 25 Mcg Tablet PO 50 mcg DAILY FRANCHESCA Administration Allergies Allergies Allergy/AdvReac Type Severity Reaction Status Date / Time bee pollen [BEE STINGS] Allergy Unknown DIF Unverified 01/09/20 14:57 FBREATHING Assessment & Plan Assessment & Plan (1) Acute alteration in mental status: Status: Acute Code(s): R41.82 - Altered mental status, unspecified Recommendations: At this time patient does not appear to have capacity to make decisions or participate in decision making regarding care HCP should be activated if applicable (2) Alcohol abuse: Status: Acute Code(s): F10.10 - Alcohol abuse, uncomplicated Greater than 50% of the session was spent on counseling and/or coordination of care
[2020-05-14] MEDS: Magnesium Oxide 400 MG TABLET PO (18:15)
[2020-05-15] VITALS (7 sets, daily range): BP systolic 101–131; BP diastolic 57–66; PULSE 74–95; RESP 16–19; TEMP 36.1–36.7; O2SAT 91–95
[2020-05-15 06:44] LABS: Prothrombin Time 11.4 SEC (10.8-13.0)
[2020-05-15 06:47] LABS: D Dimer 493 NG/ML
[2020-05-15 07:12] LABS: Anion Gap 13 (12-20); Blood Urea Nitrogen 26 mg/dL (9-16); Calcium 8.8 mg/dL (8.4-10.2); Carbon Dioxide 30 mmol/L (22-29); Chloride 99 mmol/L (96-108); Creatinine Clr Calc Pharmacy 93.7; Estimated Glomerular Filt Rate > 60; Glucose Random 113 mg/dL (60-115); Magnesium 1.8 mg/dL (1.6-2.6); Phosphorus 4.1 mg/dL (2.7-4.5); Potassium 3.5 mmol/l (3.3-5.1); Sodium 138 mmol/L (135-145)
[2020-05-15] MEDS: Albuterol/Iprat 2.5/0.5MG 3 ML AMPUL.NEB INHALE ×3 (08:50→18:59)
[2020-05-15] MEDS: 0.9 % Sodium Chloride Flush 3 ML SYRINGE IVFLUSH ×3 (09:00→23:39)
[2020-05-15] MEDS: Cholecalciferol (Vitamin D3) 25 MCG TABLET 50 MCG PO (09:00)
[2020-05-15] MEDS: predniSONE 20 MG TABLET PO (09:01)
[2020-05-15] MEDS: Thiamine HCL 100 MG TABLET PO (09:01)
[2020-05-15] MEDS: Atorvastatin Calcium 40 MG TABLET PO (09:01)
[2020-05-15] MEDS: Aspirin Enteric Coated 81 MG TABLET.DR PO (09:01)
[2020-05-15] MEDS: Magnesium Oxide 400 MG TABLET PO ×2 (09:01→16:39)
[2020-05-15 11:19] LABS: Base Excess VBG 9.7 mmol/L; HCO3 VBG 35 mmol/L; PCO2 VBG 53 mmHg; PO2 VBG 39 mmHg; pH VBG 7.42 (7.32-7.43)
--- NOTE | 2020-05-15 12:37 | P.PNIM_ITS ---
Subjective Subjective Date of Service: 05/15/20 Interval History: Patient seen and examined at bedside Patient remains confused Patient still very weak Review of Systems CVS denies any chest pain Abdomen denies any abdominal pain Respiratory no shortness of breath or cough Neurologic Neurologic: Reports confusion Psychiatric Psychiatric: Reports confusion Physical Exam Vital Signs: Vital Signs: Last Vital Signs Temp 97.0 F 05/15/20 12:19 Pulse 95 05/15/20 12:19 Resp 16 05/15/20 12:19 BP 104/59 L 05/15/20 12:19 Pulse Ox 92 05/15/20 12:19 Body Mass Index 22.3 Const: General: no acute distress and confusion Orientation/consciousness: confusion Resp: Effort & Inspection: normal respiratory effort Cardio: Jugular venous distension: no JVD GI: Inspection: Yes normal to inspection Neuro: General: confusion Motor exam (neuro): 5/5 motor strength present throughout Objective Data Current Medications Generic Name Dose Route Start Last Admin Trade Name Freq PRN Reason Stop Dose Admin Albuterol/Ipratropium 3 ml 05/14/20 08:00 05/15/20 08:52 Albuterol/Iprat 2.5/0.5mg 3 Ml Ampul.Neb INHALE 3 ml RQ6H WHILE AWAKE FRANCHESCA Administration Aspirin 81 mg 05/09/20 09:00 05/15/20 09:01 Aspirin Enteric Coated 81 Mg Tablet. PO 81 mg DAILY FRANCHESCA Administration Atorvastatin Calcium 40 mg 05/09/20 09:00 05/15/20 09:01 Atorvastatin Calcium 40 Mg Tablet PO 40 mg DAILY FRANCHESCA Administration Heparin Sodium (Porcine) 5,000 unit 05/14/20 11:00 05/14/20 22:34 Heparin Sodium,Porcine 5,000 Unit/Ml Vial SUBCUT 5,000 unit Q12H FRANCHESCA Administration Magnesium Oxide 400 mg 05/14/20 17:30 05/15/20 09:01 Magnesium Oxide 400 Mg Tablet PO 400 mg BIDPC FRANCHESCA Administration Prednisone 20 mg 05/15/20 09:00 05/15/20 09:01 Prednisone 20 Mg Tablet PO 05/17/20 23:59 20 mg DAILY FRANCHESCA Administration Sodium Chloride 3 ml 05/09/20 00:00 05/15/20 09:00 0.9 % Sodium Chloride Flush 3 Ml Syringe IVFLUSH 3 ml QSHIFT FRANCHESCA Administration Thiamine HCl 100 mg 05/14/20 09:00 05/15/20 09:01 Thiamine Hcl 100 Mg Tablet PO 100 mg DAILY FRANCHESCA Administration Vitamin D 50 mcg 05/09/20 09:00 05/15/20 09:00 Cholecalciferol (Vitamin D3) 25 Mcg Tablet PO 50 mcg DAILY FRANCHESCA Administration Labs CBC & Chem 7: 05/12/20 05:15 05/15/20 06:13 Microbiology Microbiology Results: Microbiology 05/08/20 11:00 Blood - Venous Blood Culture - Final No growth after 5 days. 05/08/20 10:56 Blood - Venous Blood Culture - Final No growth after 5 days. 05/08/20 13:09 Urine clean catch - Clean Catch Midstream Urine Culture - Final No growth. Assessment and Plan (1) Acute alteration in mental status: Status: Acute (2) Alcohol abuse: Status: Acute (3) Acute hyponatremia: Status: Acute (4) Difficulty breathing: Status: Acute Assessment and Plan: 69-year-old male presented with confusion, possible seizure found to be hypoxic and hypotensive, placed on oxygen, CT head on admission shows no acute a bnormality, ABG shows pCO2 retention was not acidotic, patient was placed on phenobarbital protocol, patient developed hypercapnic respiratory failure after receiving phenobarbital, transferred to ICU placed on BiPAP, hypercapnic respiratory failure resolved, patient was transferred to floor Acute hypercapnic respiratory failure with underlying COPD likely medication induced fromphenobarbitone resolved Off BiPAP PCO2 improved Continue nebulizer Wean down steroids Seen by pulmonology recommended continue nebulizers Toxic metabolic Encephalopathy likely multifactorial from alcohol abuse, w ernicke encephalopathy hypoxic and hyponatremia , hypercapnic respiratory failure improving Patient still confused, and often sleepy Treat underlying condition Ammonia level was normal on admission Seen by Neurology recommended possible wernicke and received IV thiamine Continue p.o. thiamine for now Patient was seen by psych patient was deemed incompetent, healthcare proxy activated Significant alcohol abuse with withdrawal resolved Phenobarbital stopped For sedation Monitor electrolytes Continue thiamine Hyponatremia resolved Monitor sodium closely COPD COVID PCR negative Continue nebulizer Wean down steroids Hypo magnesemia replaced and resolved Continue p.o. magnesium supplements DVT prophylaxis heparin subQ Debility weakness confusion evaluated by Physical therapy , recommended short- term rehab will likely need long-term placement, case management working on the placement
[2020-05-15] MEDS: Heparin Sodium,Porcine 5,000 UNIT/ML VIAL 5000 UNIT SUBCUT ×2 (12:47→20:46)
--- NOTE | 2020-05-15 16:00 | MHC.CM.PN ---
PT IS CLEARED FOR DC. STR REFERRALS SENT FOR PLACEMENT. NO BED OFFERS AT THIS TIME. WILL CONTINUE BED SEARCH.
[2020-05-16 06:58] LABS: Prothrombin Time 11.9 SEC (10.8-13.0)
[2020-05-16 07:01] LABS: D Dimer 487 NG/ML
[2020-05-16 07:09] LABS: Anion Gap 10 (12-20); Blood Urea Nitrogen 20 mg/dL (9-16); Calcium 8.8 mg/dL (8.4-10.2); Carbon Dioxide 31 mmol/L (22-29); Chloride 101 mmol/L (96-108); Creatinine Clr Calc Pharmacy 101.2; Estimated Glomerular Filt Rate > 60; Glucose Random 98 mg/dL (60-115); Phosphorus 3.4 mg/dL (2.7-4.5); Potassium 3.4 mmol/l (3.3-5.1); Sodium 139 mmol/L (135-145)
[2020-05-16] MEDS: Albuterol/Iprat 2.5/0.5MG 3 ML AMPUL.NEB INHALE ×3 (07:18→19:02)
[2020-05-16 07:22] VITALS: PULSE 73; O2SAT 91
[2020-05-16 08:00] VITALS: BP 118/66; PULSE 90; RESP 18; TEMP 36.5; O2SAT 96
[2020-05-16] MEDS: Aspirin Enteric Coated 81 MG TABLET.DR PO (08:53)
[2020-05-16] MEDS: Cholecalciferol (Vitamin D3) 25 MCG TABLET 50 MCG PO (08:53)
[2020-05-16] MEDS: Magnesium Oxide 400 MG TABLET PO ×2 (08:53→18:38)
[2020-05-16] MEDS: Thiamine HCL 100 MG TABLET PO (08:53)
[2020-05-16] MEDS: 0.9 % Sodium Chloride Flush 3 ML SYRINGE IVFLUSH ×3 (08:54→23:28)
[2020-05-16] MEDS: Atorvastatin Calcium 40 MG TABLET PO (08:54)
[2020-05-16] MEDS: predniSONE 20 MG TABLET PO (08:54)
[2020-05-16] MEDS: Heparin Sodium,Porcine 5,000 UNIT/ML VIAL 5000 UNIT SUBCUT ×2 (11:48→22:25)
--- NOTE | 2020-05-16 12:46 | P.PNIM_ITS ---
Subjective Subjective Date of Service: 05/16/20 Interval History: the patient was seen and evaluated this morning Laying in bed, feels comfortable No reported fever, chills or shortness of breath Reported difficult time controlling the patient with anxiety and restlessness, more quiet and comfortable this morning. Systemic review: No fever, chills or weakness No chest pain, palpitation No shortness of breath or coughing No abdominal pain, nausea or vomiting No urinary symptoms No any rash or wounds Physical Exam Vital Signs: Vital Signs: Last Vital Signs Temp 97.7 F 05/16/20 08:00 Pulse 90 05/16/20 08:00 Resp 18 05/16/20 08:00 BP 118/66 05/16/20 08:00 Pulse Ox 96 05/16/20 08:00 Body Mass Index 22.3 Const: Other: Constitutional : Alert, not in distress Neck : Normal inspection, Supple Cardiovascular : RRR, S1 S2, no lower extremity edema Respiratory : Bilateral chest wall movement, not in respiratory distress Gastrointestinal: soft, lax, Normal bowel sounds, Non tender Skin : Warm/Dry, No rash Neurological : Alert , mildly confused, No focal deficit Objective Data Current Medications Generic Name Dose Route Start Last Admin Trade Name Freq PRN Reason Stop Dose Admin Albuterol/Ipratropium 3 ml 05/14/20 08:00 05/16/20 07:18 Albuterol/Iprat 2.5/0.5mg 3 Ml Ampul.Neb INHALE 3 ml RQ6H WHILE AWAKE FRANCHESCA Administration Aspirin 81 mg 05/09/20 09:00 05/16/20 08:53 Aspirin Enteric Coated 81 Mg Tablet. PO 81 mg DAILY FRANCHESCA Administration Atorvastatin Calcium 40 mg 05/09/20 09:00 05/16/20 08:54 Atorvastatin Calcium 40 Mg Tablet PO 40 mg DAILY FRANCHESCA Administration Heparin Sodium (Porcine) 5,000 unit 05/14/20 11:00 05/16/20 11:48 Heparin Sodium,Porcine 5,000 Unit/Ml Vial SUBCUT 5,000 unit Q12H FRANCHESCA Administration Magnesium Oxide 400 mg 05/14/20 17:30 05/16/20 08:53 Magnesium Oxide 400 Mg Tablet PO 400 mg BIDPC FRANCHESCA Administration Prednisone 20 mg 05/15/20 09:00 05/16/20 08:54 Prednisone 20 Mg Tablet PO 05/17/20 23:59 20 mg DAILY FRANCHESCA Administration Sodium Chloride 3 ml 05/09/20 00:00 05/16/20 08:54 0.9 % Sodium Chloride Flush 3 Ml Syringe IVFLUSH 3 ml QSHIFT FRANCHESCA Administration Thiamine HCl 100 mg 05/14/20 09:00 05/16/20 08:53 Thiamine Hcl 100 Mg Tablet PO 100 mg DAILY FRANCHESCA Administration Vitamin D 50 mcg 05/09/20 09:00 05/16/20 08:53 Cholecalciferol (Vitamin D3) 25 Mcg Tablet PO 50 mcg DAILY FRANCHESCA Administration Labs CBC & Chem 7: 05/12/20 05:15 05/16/20 06:20 Microbiology Microbiology Results: Microbiology 05/08/20 11:00 Blood - Venous Blood Culture - Final No growth after 5 days. 05/08/20 10:56 Blood - Venous Blood Culture - Final No growth after 5 days. 05/08/20 13:09 Urine clean catch - Clean Catch Midstream Urine Culture - Final No growth. Assessment and Plan (1) Acute alteration in mental status: Status: Acute (2) Alcohol abuse: Status: Acute (3) Acute hyponatremia: Status: Acute (4) Difficulty breathing: Status: Acute Assessment and Plan: 69-year-old male presented with confusion, possible seizure found to be hypoxic and hypotensive, placed on oxygen, CT head on admission shows no acute abnormality, ABG shows pCO2 retention was not acidotic, patient was placed on phenobarbital protocol, patient developed hypercapnic respiratory failure after receiving phenobarbital, transferred to ICU placed on BiPAP, hypercapnic respiratory failure resolved, patient was transferred to floor Toxic metabolic Encephalopathy likely multifactorial from alcohol abuse, wernicke encephalopathy hypoxic and hyponatremia , hypercapnic respiratory failure improving Patient still confused, mentation improved Treat underlying condition Seen by Neurology recommended possible wernicke and received IV thiamine Continue p.o. thiamine for now Patient was seen by psych patient was deemed incompetent, healthcare proxy activated Acute hypercapnic respiratory failure , resolved 2/2 underlying COPD likely medication induced from phenobarbitone, resolved Off BiPAP PCO2 improved Continue nebulizer Seen by pulmonology recommended continue nebulizers Significant alcohol abuse with withdrawal resolved Phenobarbital stopped For sedation Monitor electrolytes Continue thiamine Hyponatremia resolved Monitor sodium closely COPD COVID PCR negative Continue nebulizer Wean down steroids Hypo magnesemia replaced and resolved Continue p.o. magnesium supplements DVT prophylaxis subQ Heparin Debility weakness confusion evaluated by Physical therapy , recommended short- term rehab will likely need long-term placement, case management working on the placement
--- NOTE | 2020-05-16 13:18 | MHC.CM.PN ---
HCP/FORMER SPOUSE EYAD ([phone]) IS REQUESTING [email or web address] OR [facility]. SHE DOES NOT WANT [facility] OR [facility]. CASE MANAGEMENT AWAITING RESPONSES FROM CHOSEN FACILITIES. HOSPITALIST AWARE OF EFFORTS
[2020-05-16 13:29] VITALS: PULSE 85; O2SAT 92
[2020-05-16 15:55] VITALS: BP 114/66; PULSE 97; RESP 18; TEMP 37.1; O2SAT 93
[2020-05-16 19:03] VITALS: PULSE 88; O2SAT 93
[2020-05-16 23:39] VITALS: BP 152/78; PULSE 82; RESP 20; TEMP 37; O2SAT 97
[2020-05-17] MEDS: Albuterol/Iprat 2.5/0.5MG 3 ML AMPUL.NEB INHALE ×2 (07:29→13:43)
[2020-05-17 07:30] VITALS: PULSE 73; O2SAT 90
[2020-05-17 07:32] LABS: Base Excess VBG 15.2 mmol/L; HCO3 VBG 39 mmol/L; PCO2 VBG 48 mmHg; PO2 VBG 75 mmHg; pH VBG 7.52 (7.32-7.43)
[2020-05-17 07:46] LABS: Prothrombin Time 11.3 SEC (10.8-13.0)
[2020-05-17 07:49] LABS: D Dimer 452 NG/ML
[2020-05-17 08:00] VITALS: BP 118/56; PULSE 90; RESP 18; TEMP 37.2; O2SAT 92
[2020-05-17 08:11] LABS: Anion Gap 10 (12-20); Blood Urea Nitrogen 18 mg/dL (9-16); Carbon Dioxide 32 mmol/L (22-29); Chloride 102 mmol/L (96-108); Creatinine Clr Calc Pharmacy 101.2; Estimated Glomerular Filt Rate > 60; Glucose Random 100 mg/dL (60-115); Magnesium 1.8 mg/dL (1.6-2.6); Phosphorus 3.6 mg/dL (2.7-4.5); Potassium 3.4 mmol/l (3.3-5.1); Sodium 141 mmol/L (135-145)
[2020-05-17] MEDS: predniSONE 20 MG TABLET PO (09:06)
[2020-05-17] MEDS: 0.9 % Sodium Chloride Flush 3 ML SYRINGE IVFLUSH (09:06)
[2020-05-17] MEDS: Cholecalciferol (Vitamin D3) 25 MCG TABLET 50 MCG PO (09:07)
[2020-05-17] MEDS: Atorvastatin Calcium 40 MG TABLET PO (09:07)
[2020-05-17] MEDS: Thiamine HCL 100 MG TABLET PO (09:07)
[2020-05-17] MEDS: Aspirin Enteric Coated 81 MG TABLET.DR PO (09:07)
[2020-05-17] MEDS: Magnesium Oxide 400 MG TABLET PO (09:07)
--- NOTE | 2020-05-17 11:01 | MHC.CM.PN ---
HCP/EYAD ([phone]) AGREES TO [facility] BED [facility]. RN AND UNIT AWARE OF PLAN. [facility] TO BE SET UP FOR 13:30.
--- NOTE | 2020-05-17 11:05 | P.PNIM_ITS ---
Subjective Subjective Date of Service: 05/17/20 Interval History: the patient was seen and evaluated this morning Laying in bed, feels comfortable, mildly confused No reported fever, chills or shortness of breath Better controlling the patient with anxiety and restlessness overnight, more quiet and comfortable this morning. Systemic review: No fever, chills or weakness No chest pain, palpitation No shortness of breath or coughing No abdominal pain, nausea or vomiting No urinary symptoms No any rash or wounds Physical Exam Vital Signs: Vital Signs: Last Vital Signs Temp 98.9 F 05/17/20 08:00 Pulse 90 05/17/20 08:00 Resp 18 05/17/20 08:00 BP 118/56 L 05/17/20 08:00 Pulse Ox 92 05/17/20 08:00 Body Mass Index 22.3 Const: Other: Constitutional : Alert, confused, not in distress Neck : Normal inspection, Supple Cardiovascular : RRR, S1 S2, no lower extremity edema Respiratory : Bilateral chest wall movement, not in respiratory distress Gastrointestinal: soft, lax, Normal bowel sounds, Non tender Skin : Warm/Dry, No rash Neurological : Alert , confused, No focal deficit Objective Data Current Medications Generic Name Dose Route Start Last Admin Trade Name Freq PRN Reason Stop Dose Admin Albuterol/Ipratropium 3 ml 05/14/20 08:00 05/17/20 07:29 Albuterol/Iprat 2.5/0.5mg 3 Ml Ampul.Neb INHALE 3 ml RQ6H WHILE AWAKE FRANCHESCA Administration Aspirin 81 mg 05/09/20 09:00 05/17/20 09:07 Aspirin Enteric Coated 81 Mg Tablet. PO 81 mg DAILY FRANCHESCA Administration Atorvastatin Calcium 40 mg 05/09/20 09:00 05/17/20 09:07 Atorvastatin Calcium 40 Mg Tablet PO 40 mg DAILY FRANCHESCA Administration Heparin Sodium (Porcine) 5,000 unit 05/14/20 11:00 05/16/20 22:25 Heparin Sodium,Porcine 5,000 Unit/Ml Vial SUBCUT 5,000 unit Q12H FRANCHESCA Administration Magnesium Oxide 400 mg 05/14/20 17:30 05/17/20 09:07 Magnesium Oxide 400 Mg Tablet PO 400 mg BIDPC FRANCHESCA Administration Prednisone 20 mg 05/15/20 09:00 05/17/20 09:06 Prednisone 20 Mg Tablet PO 05/17/20 23:59 20 mg DAILY FRANCHESCA Administration Sodium Chloride 3 ml 05/09/20 00:00 05/17/20 09:06 0.9 % Sodium Chloride Flush 3 Ml Syringe IVFLUSH 3 ml QSHIFT FRANCHESCA Administration Thiamine HCl 100 mg 05/14/20 09:00 05/17/20 09:07 Thiamine Hcl 100 Mg Tablet PO 100 mg DAILY FRANCHESCA Administration Vitamin D 50 mcg 05/09/20 09:00 05/17/20 09:07 Cholecalciferol (Vitamin D3) 25 Mcg Tablet PO 50 mcg DAILY FRANCHESCA Administration Labs CBC & Chem 7: 05/12/20 05:15 05/17/20 07:24 Microbiology Microbiology Results: Microbiology 05/08/20 11:00 Blood - Venous Blood Culture - Final No growth after 5 days. 05/08/20 10:56 Blood - Venous Blood Culture - Final No growth after 5 days. 05/08/20 13:09 Urine clean catch - Clean Catch Midstream Urine Culture - Final No growth. Assessment and Plan (1) Acute alteration in mental status: Status: Acute (2) Alcohol abuse: Status: Acute (3) Acute hyponatremia: Status: Acute (4) Difficulty breathing: Status: Acute Assessment and Plan: 69-year-old male presented with confusion, possible seizure found to be hypoxic and hypotensive, placed on oxygen, CT head on admission shows no acute abnormality, ABG shows pCO2 retention was not acidotic, patient was placed on phenobarbital protocol, patient developed hypercapnic respiratory failure after receiving phenobarbital, transferred to ICU placed on BiPAP, hypercapnic respiratory failure resolved, patient was transferred to floor Toxic metabolic Encephalopathy likely multifactorial from alcohol abuse, wernicke encephalopathy hypoxic and hyponatremia , hypercapnic respiratory failure improving Patient still confused, mentation improved Treat underlying condition Seen by Neurology recommended possible wernicke and received IV thiamine Continue p.o. thiamine for now Patient was seen by psych patient was deemed incompetent, healthcare proxy activated Acute hypercapnic respiratory failure , resolved 2/2 underlying COPD likely medication induced from phenobarbitone, resolved Resolved Off BiPAP PCO2 improved Continue nebulizer Seen by pulmonology recommended continue nebulizers Significant alcohol abuse with withdrawal, resolved Phenobarbital stopped For sedation Monitor electrolytes Continue thiamine Hyponatremia resolved Monitor sodium closely COPD COVID PCR negative Continue nebulizer Wean down steroids Hypo magnesemia replaced and resolved Continue p.o. magnesium supplements DVT prophylaxis subQ Heparin Debility weakness confusion evaluated by Physical therapy , recommended short- term rehab will likely need long-term placement, case management working on the placement
--- NOTE | 2020-05-17 11:17 | PM.DS ---
DS: Providers Provider Date of Service: 05/17/20 Date of admission: 05/08/20 17:28 Primary care physician: Unknown Physician Consults: 05/12/20 10:24 Consult to Pulmonology Routine Consulting Provider: Adolfo Loera Reason for consultation: hypercapneic respiratory failure 05/13/20 08:10 Consult to Psychiatry Routine Consulting Provider: [facility] Reason for consultation: confusion delerium competency evulation DS: Diagnosis Discharge Diagnosis (1) Acute alteration in mental status: Status: Acute (2) Alcohol abuse: Status: Acute (3) Acute hyponatremia: Status: Acute (4) Difficulty breathing: Status: Acute (5) Hyponatremia: Status: Acute (6) Hypokalemia due to excessive renal loss of potassium: Status: Acute (7) DTs (delirium tremens): Status: Acute (8) Acute respiratory failure with hypoxia and hypercarbia: Status: Acute DS: Medications Discharge Medications Home Medications: Home Medications Medication Instructions Recorded Confirmed Spiriva Respimat 2 puff INHALATION DAILY 05/08/20 05/08/20 albuterol sulfate [ProAir HFA] 2 puff INHALATION Q6H PRN 05/08/20 05/08/20 aspirin 81 mg PO DAILY 05/08/20 05/08/20 cholecalciferol (vitamin D3) 50 mcg PO DAILY 05/08/20 05/08/20 [Vitamin D3] cyanocobalamin (vitamin B-12) 1,000 mcg PO DAILY 05/08/20 05/08/20 fluticasone propionate 2 puff INHALATION BID 05/08/20 05/08/20 folic acid 1 mg PO DAILY 05/08/20 05/08/20 omega [id number]-fish oil [Fish Oil] 1 cap PO BID 05/08/20 05/08/20 Previous Rx's Medication Instructions Recorded atorvastatin 40 mg tablet 40 mg PO DAILY #30 tab 03/23/20 lisinopril 10 mg tablet 10 mg PO DAILY #90 tab 04/14/20 magnesium oxide 400 mg PO BIDPC #60 tab 05/17/20 thiamine mononitrate (vit B1) 100 mg PO DAILY #30 tab 05/17/20 DS: Summary Hospital Course Hospital Course: Admission note HPI A 69-year-old man presented to the ER after a neighbor found him to be unresponsive. Apparently, a neighbor who lives above him checked on him and found him in the recliner. EMS was called. Upon arrival of EMS, his oxygen saturation was noted to be 70%. He was placed on non-rebreather, which did increase his oxygen to 90%. The patient was weak and did not appear to have any known trauma. Not much history was obtained from the patient, unfortunately. In the ER, his CO2 was noted to be elevated and he was placed on BiPAP for about an hour. He was given an empiric dose of Zosyn for possible aspiration pneumonia. Repeat ABGs did appear to be improved. At one place on BiPAP, his blood pressure did go down, but did improve after he was taken off. He was also noted to have sodium of 125. Apparently both Nephrology and pipe joints supervisor were consulted by the ER provider. Ammonia was obtained, which was 34. Troponin 12.5, BNP 31. Sodium 125. Coronavirus PCR negative. Chest CT showed nonspecific minimal patchy reticular opacities in both lower lobes. Vital signs have remained stable. He has not had any further hypoxia. He will be admitted for further management and treatment of acute encephalopathy with aspiration pneumonia. Hospital course Toxic metabolic Encephalopathy likely multifactorial from alcohol abuse, wernicke encephalopathy hypoxic and hyponatremia , hypercapnic respiratory failure Improved during the hospital stay after treating underlying causes Patient was seen by psych patient was deemed incompetent, healthcare proxy activated Seen by Neurology suggested possible wernicke which was treated with IV thiamine To be discharged on p.o. thiamine for now He developed Acute hypercapnic respiratory failure 2/2 underlying COPD likely medication induced from phenobarbital that was started to treat alcohol withdrawal and DTs. Treated with BiPAP with good response. Repeated ABG showed that PCO2 improved Seen by pulmonology recommended continue nebulizers To restart home inhalers on discharge. Significant alcohol abuse history. Acute alcohol withdrawal with DTs. Treated primarily with phenobarbital which was stopped for extra sedation and hypoxic respiratory failure. To continue thiamine at time of discharge. Advised total abstinence. Noted to have hypomagnesemia. Continue p.o. magnesium supplements Patient to be transferred for facility for rehab hopefully less than 30 days. Time Spent with Patient Time attestation: Total time spent providing and/or coordinating discharge services: Discharge coordination time: Greater than 30 minutes Physical Exam Vital Signs: Vital Signs: Last Vital Signs Temp 98.9 F 05/17/20 08:00 Pulse 90 05/17/20 08:00 Resp 18 05/17/20 08:00 BP 118/56 L 05/17/20 08:00 Pulse Ox 92 05/17/20 08:00 Body Mass Index 22.3 Const: Other: Constitutional : Alert, confused, not in distress Neck : Normal inspection, Supple Cardiovascular : RRR, S1 S2, no lower extremity edema Respiratory : Bilateral chest wall movement, not in respiratory distress Gastrointestinal: soft, lax, Normal bowel sounds, Non tender Skin : Warm/Dry, No rash Neurological : Alert , confused, No focal deficit DS: Data Data Completed and Pending Labs on day of discharge: Laboratory Tests 05/08/20 05/08/20 05/08/20 10:25 10:26 10:26 WBC RBC Hgb Hct MCV MCH MCHC RDW Plt Count MPV Immature Gran % (Auto) Neut % (Auto) Lymph % (Auto) [place] % (Auto) Eos % (Auto) Baso % (Auto) Lymph # (Auto) [place] # (Auto) Eos # (Auto) Baso # (Auto) Abs Immat Gran (auto) Absolute Neuts (auto) Absolute Nucleated RBC Nucleated RBC % (auto) Smear Tech's Comments PT INR APTT D-Dimer ABG pH ABG pCO2 ABG pO2 ABG HCO3 ABG O2 Saturation ABG Base Excess VBG pH VBG pCO2 VBG pO2 VBG HCO3 VBG O2 Saturation VBG Base Excess Oxygen Given Sodium Potassium Chloride Carbon Dioxide Anion Gap BUN Creatinine Estim Creat Clear Calc Estimated GFR Random Glucose Fasting Glucose Lactic Acid Calcium Phosphorus Magnesium Ferritin Total Bilirubin Direct Bilirubin AST ALT Alkaline Phosphatase Ammonia 34 Lactate Dehydrogenase Total Creatine Kinase Troponin I High Sens 12.5 B-Natriuretic Peptide 31 Total Protein Albumin Lipase Procalcitonin TSH Urine Color Urine Appearance Urine pH Ur Specific [place] Urine Protein Urine Glucose (UA) Urine Ketones Urine Blood Urine Nitrite Ur Leukocyte Esterase Salicylates Urine Opiates Screen Ur Barbiturates Screen Ur Phencyclidine Scrn Ur Amphetamines Screen U Benzodiazepines Scrn Urine Cocaine Screen U Marijuana (THC) Screen Ethyl Alcohol COVID-19 (RAHUL) COVID-19 Clin Com 05/08/20 05/08/20 05/08/20 10:26 10:26 10:28 WBC RBC Hgb Hct MCV MCH MCHC RDW Plt Count MPV Immature Gran % (Auto) Neut % (Auto) Lymph % (Auto) [place] % (Auto) Eos % (Auto) Baso % (Auto) Lymph # (Auto) [place] # (Auto) Eos # (Auto) Baso # (Auto) Abs Immat Gran (auto) Absolute Neuts (auto) Absolute Nucleated RBC Nucleated RBC % (auto) Smear Tech's Comments PT 11.5 INR 1.0 APTT 25.4 D-Dimer ABG pH ABG pCO2 ABG pO2 ABG HCO3 ABG O2 Saturation ABG Base Excess VBG pH VBG pCO2 VBG pO2 VBG HCO3 VBG O2 Saturation VBG Base Excess Oxygen Given Sodium Potassium Chloride Carbon Dioxide Anion Gap BUN Creatinine Estim Creat Clear Calc Estimated GFR Random Glucose Fasting Glucose Lactic Acid 1.0 Calcium Phosphorus Magnesium Ferritin Total Bilirubin Direct Bilirubin AST ALT Alkaline Phosphatase Ammonia Lactate Dehydrogenase Total Creatine Kinase Troponin I High Sens B-Natriuretic Peptide Total Protein Albumin Lipase Procalcitonin 0.05 TSH Urine Color Urine Appearance Urine pH Ur Specific [place] Urine Protein Urine Glucose (UA) Urine Ketones Urine Blood Urine Nitrite Ur Leukocyte Esterase Salicylates Urine Opiates Screen Ur Barbiturates Screen Ur Phencyclidine Scrn Ur Amphetamines Screen U Benzodiazepines Scrn Urine Cocaine Screen U Marijuana (THC) Screen Ethyl Alcohol COVID-19 (RAHUL) COVID-19 Clin Com 05/08/20 05/08/20 05/08/20 10:33 10:39 10:56 WBC 7.1 RBC 3.91 L Hgb 13.2 L Hct 36.0 L MCV 92.1 MCH 33.8 H MCHC 36.7 H RDW 13.2 Plt Count 163 MPV 9.4 Immature Gran % (Auto) 1.5 H Neut % (Auto) 70.5 Lymph % (Auto) 14.9 L [place] % (Auto) 12.7 H Eos % (Auto) 0.1 Baso % (Auto) 0.3 Lymph # (Auto) 1.1 L [place] # (Auto) 0.9 Eos # (Auto) 0.0 Baso # (Auto) 0.0 Abs Immat Gran (auto) 0.11 H Absolute Neuts (auto) 5.0 Absolute Nucleated RBC 0.000 Nucleated RBC % (auto) 0.0 Smear Tech's Comments PT INR APTT D-Dimer ABG pH 7.49 H ABG pCO2 60 H* ABG pO2 68 L ABG HCO3 46 H ABG O2 Saturation 89.0 ABG Base Excess 19.7 VBG pH VBG pCO2 VBG pO2 VBG HCO3 VBG O2 Saturation VBG Base Excess Oxygen Given ROOM AIR Sodium Potassium Chloride Carbon Dioxide Anion Gap BUN Creatinine Estim Creat Clear Calc Estimated GFR Random Glucose Fasting Glucose Lactic Acid Calcium Phosphorus Magnesium Ferritin Total Bilirubin Direct Bilirubin AST ALT Alkaline Phosphatase Ammonia Lactate Dehydrogenase Total Creatine Kinase Troponin I High Sens B-Natriuretic Peptide Total Protein Albumin Lipase Procalcitonin TSH Urine Color Urine Appearance Urine pH Ur Specific [place] Urine Protein Urine Glucose (UA) Urine Ketones Urine Blood Urine Nitrite Ur Leukocyte Esterase Salicylates Urine Opiates Screen Ur Barbiturates Screen Ur Phencyclidine Scrn Ur Amphetamines Screen U Benzodiazepines Scrn Urine Cocaine Screen U Marijuana (THC) Screen Ethyl Alcohol COVID-19 (RAHUL) Negative COVID-19 Clin Com See Note 05/08/20 05/08/20 05/08/20 10:56 10:56 11:22 WBC RBC Hgb Hct MCV MCH MCHC RDW Plt Count MPV Immature Gran % (Auto) Neut % (Auto) Lymph % (Auto) [place] % (Auto) Eos % (Auto) Baso % (Auto) Lymph # (Auto) [place] # (Auto) Eos # (Auto) Baso # (Auto) Abs Immat Gran (auto) Absolute Neuts (auto) Absolute Nucleated RBC Nucleated RBC % (auto) Smear Tech's Comments PT INR APTT D-Dimer ABG pH ABG pCO2 ABG pO2 ABG HCO3 ABG O2 Saturation ABG Base Excess VBG pH VBG pCO2 VBG pO2 VBG HCO3 VBG O2 Saturation VBG Base Excess Oxygen Given Sodium 122 L Potassium 3.5 Chloride 69 L Carbon Dioxide 38 H Anion Gap 19 BUN 32 H Creatinine 0.77 Estim Creat Clear Calc 82.7 Estimated GFR > 60 Random Glucose 100 Fasting Glucose Lactic Acid Calcium 9.2 Phosphorus Magnesium 1.9 Ferritin 504 H Cancelled Total Bilirubin 1.4 H Direct Bilirubin 0.8 H AST 63 H ALT 37 Alkaline Phosphatase 62 Ammonia Lactate Dehydrogenase 247 Total Creatine Kinase 634 H Troponin I High Sens B-Natriuretic Peptide Total Protein 6.5 Albumin 3.9 Lipase 33 Cancelled Procalcitonin TSH 0.94 Urine Color Urine Appearance Urine pH Ur Specific [place] Urine Protein Urine Glucose (UA) Urine Ketones Urine Blood Urine Nitrite Ur Leukocyte Esterase Salicylates < 5.0 L Urine Opiates Screen Ur Barbiturates Screen Ur Phencyclidine Scrn Ur Amphetamines Screen U Benzodiazepines Scrn Urine Cocaine Screen U Marijuana (THC) Screen Ethyl Alcohol < 10 COVID-19 (RAHUL) COVID-19 [employer] Com 05/08/20 05/08/20 05/08/20 11:22 12:54 13:09 WBC RBC Hgb Hct MCV MCH MCHC RDW Plt Count MPV Immature Gran % (Auto) Neut % (Auto) Lymph % (Auto) [place] % (Auto) Eos % (Auto) Baso % (Auto) Lymph # (Auto) [place] # (Auto) Eos # (Auto) Baso # (Auto) Abs Immat Gran (auto) Absolute Neuts (auto) Absolute Nucleated RBC Nucleated RBC % (auto) Smear Tech's Comments PT INR APTT D-Dimer ABG pH 7.41 ABG pCO2 59 H ABG pO2 86 ABG HCO3 37 H ABG O2 Saturation 94.0 ABG Base Excess 10.9 VBG pH VBG pCO2 VBG pO2 VBG HCO3 VBG O2 Saturation VBG Base Excess Oxygen Given 2 L Sodium Potassium Chloride Carbon Dioxide Anion Gap BUN Creatinine Estim Creat Clear Calc Estimated GFR Random Glucose Fasting Glucose Lactic Acid Calcium Phosphorus Magnesium Ferritin Cancelled Total Bilirubin Direct Bilirubin AST ALT Alkaline Phosphatase Ammonia Lactate Dehydrogenase Total Creatine Kinase Troponin I High Sens B-Natriuretic Peptide Total Protein Albumin Lipase Cancelled Procalcitonin TSH Urine Color [place] Urine Appearance CLEAR Urine pH 6.0 Ur Specific [place] 1.020 Urine Protein TRACE Urine Glucose (UA) NEG Urine Ketones 15 Urine Blood NEG Urine Nitrite NEG Ur Leukocyte Esterase NEG Salicylates Urine Opiates Screen Ur Barbiturates Screen Ur Phencyclidine Scrn Ur Amphetamines Screen U Benzodiazepines Scrn Urine Cocaine Screen U Marijuana (THC) Screen Ethyl Alcohol COVID-19 (RAHUL) COVID-19 [employer] 05/08/20 05/08/20 05/08/20 13:09 13:51 17:45 WBC RBC Hgb Hct MCV MCH MCHC RDW Plt Count MPV Immature Gran % (Auto) Neut % (Auto) Lymph % (Auto) [place] % (Auto) Eos % (Auto) Baso % (Auto) Lymph # (Auto) [place] # (Auto) Eos # (Auto) Baso # (Auto) Abs Immat Gran (auto) Absolute Neuts (auto) Absolute Nucleated RBC Nucleated RBC % (auto) Smear Tech's Comments PT INR APTT D-Dimer ABG pH 7.47 H ABG pCO2 60 H* ABG pO2 81 L ABG HCO3 44 H ABG O2 Saturation 93.0 ABG Base Excess 18.4 VBG pH VBG pCO2 VBG pO2 VBG HCO3 VBG O2 Saturation VBG Base Excess Oxygen Given 2 L Sodium 125 L Potassium 3.6 Chloride 77 L Carbon Dioxide 27 Anion Gap 25 H BUN 29 H Creatinine 0.81 Estim Creat Clear Calc 78.6 Estimated GFR > 60 Random Glucose 111 Fasting Glucose Lactic Acid Calcium 8.4 D Phosphorus Magnesium Ferritin Total Bilirubin Direct Bilirubin AST ALT Alkaline Phosphatase Ammonia Lactate Dehydrogenase Total Creatine Kinase Troponin I High Sens B-Natriuretic Peptide Total Protein Albumin Lipase Procalcitonin TSH Urine Color Urine Appearance Urine pH Ur Specific [place] Urine Protein Urine Glucose (UA) Urine Ketones Urine Blood Urine Nitrite Ur Leukocyte Esterase Salicylates Urine Opiates Screen Not Detected Ur Barbiturates Screen Not Detected Ur Phencyclidine Scrn Not Detected Ur Amphetamines Screen Not Detected U Benzodiazepines Scrn Not Detected Urine Cocaine Screen Not Detected U Marijuana (THC) Screen Not Detected Ethyl Alcohol COVID-19 (ARHUL) COVID-19 [employer] Com 05/08/20 05/09/20 05/09/20 19:46 06:03 06:03 WBC 8.4 RBC 3.35 L Hgb 11.1 L Hct 31.0 L MCV 92.5 MCH 33.1 H MCHC 35.8 RDW 13.5 Plt Count 160 MPV 9.9 Immature Gran % (Auto) 0.6 H Neut % (Auto) 86.1 H Lymph % (Auto) 4.7 L [place] % (Auto) 8.6 Eos % (Auto) 0.0 Baso % (Auto) 0.0 Lymph # (Auto) 0.4 L [place] # (Auto) 0.7 Eos # (Auto) 0.0 Baso # (Auto) 0.0 Abs Immat Gran (auto) 0.05 H Absolute Neuts (auto) 7.2 Absolute Nucleated RBC 0.000 Nucleated RBC % (auto) 0.0 Smear Tech's Comments VERIFIED PT INR APTT D-Dimer ABG pH ABG pCO2 ABG pO2 ABG HCO3 ABG O2 Saturation ABG Base Excess VBG pH VBG pCO2 VBG pO2 VBG HCO3 VBG O2 Saturation VBG Base Excess Oxygen Given Sodium 126 L 130 L Potassium 3.8 3.3 Chloride 79 L 79 L Carbon Dioxide 36 H 39 H Anion Gap 15 15 BUN 25 H 23 H Creatinine 0.69 0.72 Estim Creat Clear Calc 92.3 88.5 Estimated GFR > 60 > 60 Random Glucose 156 H D 143 H Fasting Glucose Lactic Acid Calcium 8.1 L 8.4 Phosphorus Magnesium 1.8 Ferritin Total Bilirubin Direct Bilirubin AST ALT Alkaline Phosphatase Ammonia Lactate Dehydrogenase Total Creatine Kinase Troponin I High Sens B-Natriuretic Peptide Total Protein Albumin Lipase Procalcitonin TSH Urine Color Urine Appearance Urine pH Ur Specific [place] Urine Protein Urine Glucose (UA) Urine Ketones Urine Blood Urine Nitrite Ur Leukocyte Esterase Salicylates Urine Opiates Screen Ur Barbiturates Screen Ur Phencyclidine Scrn Ur Amphetamines Screen U Benzodiazepines Scrn Urine Cocaine Screen U Marijuana (THC) Screen Ethyl Alcohol COVID-19 (RAHUL) COVID-19 Clin Com 05/10/20 05/10/20 05/10/20 02:16 05:08 05:08 WBC 9.4 RBC 3.49 L Hgb 11.4 L Hct 33.4 L MCV 95.7 MCH 32.7 MCHC 34.1 RDW 14.0 Plt Count 143 L MPV 9.6 Immature Gran % (Auto) 0.7 H Neut % (Auto) 68.9 Lymph % (Auto) 20.5 [place] % (Auto) 9.5 Eos % (Auto) 0.3 Baso % (Auto) 0.1 Lymph # (Auto) 1.9 [place] # (Auto) 0.9 Eos # (Auto) 0.0 Baso # (Auto) 0.0 Abs Immat Gran (auto) 0.07 H Absolute Neuts (auto) 6.5 Absolute Nucleated RBC 0.000 Nucleated RBC % (auto) 0.0 Smear Tech's Comments PT INR APTT D-Dimer 481 ABG pH 7.38 ABG pCO2 94 H* ABG pO2 80 L ABG HCO3 57 H ABG O2 Saturation 96.0 ABG Base Excess 27.2 VBG pH VBG pCO2 VBG pO2 VBG HCO3 VBG O2 Saturation VBG Base Excess Oxygen Given 4 L Sodium Potassium Chloride Carbon Dioxide Anion Gap BUN Creatinine Estim Creat Clear Calc Estimated GFR Random Glucose Fasting Glucose Lactic Acid Calcium Phosphorus Magnesium Ferritin Total Bilirubin Direct Bilirubin AST ALT Alkaline Phosphatase Ammonia Lactate Dehydrogenase Total Creatine Kinase Troponin I High Sens B-Natriuretic Peptide Total Protein Albumin Lipase Procalcitonin TSH Urine Color Urine Appearance Urine pH Ur Specific [place] Urine Protein Urine Glucose (UA) Urine Ketones Urine Blood Urine Nitrite Ur Leukocyte Esterase Salicylates Urine Opiates Screen Ur Barbiturates Screen Ur Phencyclidine Scrn Ur Amphetamines Screen U Benzodiazepines Scrn Urine Cocaine Screen U Marijuana (THC) Screen Ethyl Alcohol COVID-19 (RAHUL) [employer] 05/10/20 05/10/20 05/10/20 05:08 05:08 05:08 WBC RBC Hgb Hct MCV MCH MCHC RDW Plt Count MPV Immature Gran % (Auto) Neut % (Auto) Lymph % (Auto) [place] % (Auto) Eos % (Auto) Baso % (Auto) Lymph # (Auto) [place] # (Auto) Eos # (Auto) Baso # (Auto) Abs Immat Gran (auto) Absolute Neuts (auto) Absolute Nucleated RBC Nucleated RBC % (auto) Smear Tech's Comments PT INR APTT D-Dimer ABG pH ABG pCO2 ABG pO2 ABG HCO3 ABG O2 Saturation ABG Base Excess VBG pH 7.39 VBG pCO2 82 VBG pO2 45 VBG HCO3 49 VBG O2 Saturation 67.0 VBG Base Excess 20.8 Oxygen Given Sodium 136 Potassium 3.6 Chloride 89 L Carbon Dioxide 39 H Anion Gap 12 BUN 17 H Creatinine 0.61 Estim Creat Clear Calc 104.4 Estimated GFR > 60 Random Glucose Fasting Glucose 102 H Lactic Acid Calcium 8.4 Phosphorus Magnesium Ferritin 443 H Total Bilirubin Direct Bilirubin AST ALT Alkaline Phosphatase Ammonia Lactate Dehydrogenase Total Creatine Kinase Troponin I High Sens B-Natriuretic Peptide Total Protein Albumin Lipase Procalcitonin 0.02 TSH Urine Color Urine Appearance Urine pH Ur Specific [place] Urine Protein Urine Glucose (UA) Urine Ketones Urine Blood Urine Nitrite Ur Leukocyte Esterase Salicylates Urine Opiates Screen Ur Barbiturates Screen Ur Phencyclidine Scrn Ur Amphetamines Screen U Benzodiazepines Scrn Urine Cocaine Screen U Marijuana (THC) Screen Ethyl Alcohol COVID-19 (RAHUL) COVID-19 [employer] 05/10/20 05/11/20 05/11/20 19:39 05:17 05:17 WBC 8.8 RBC 2.96 L Hgb 10.0 L Hct 28.9 L MCV 97.6 MCH 33.8 H MCHC 34.6 RDW 14.2 Plt Count 158 L MPV 9.9 Immature Gran % (Auto) 0.7 H Neut % (Auto) 87.4 H Lymph % (Auto) 7.0 L [place] % (Auto) 4.9 Eos % (Auto) 0.0 Baso % (Auto) 0.0 Lymph # (Auto) 0.6 L [place] # (Auto) 0.4 Eos # (Auto) 0.0 Baso # (Auto) 0.0 Abs Immat Gran (auto) 0.06 H Absolute Neuts (auto) 7.7 Absolute Nucleated RBC 0.000 Nucleated RBC % (auto) 0.0 Smear Tech's Comments VERIFIED PT INR APTT D-Dimer ABG pH ABG pCO2 ABG pO2 ABG HCO3 ABG O2 Saturation ABG Base Excess VBG pH 7.35 VBG pCO2 79 VBG pO2 45 VBG HCO3 44 VBG O2 Saturation 71.0 VBG Base Excess 15.6 Oxygen Given Sodium 134 L Potassium 2.9 L Chloride 96 Carbon Dioxide 29 Anion Gap 12 BUN 18 H Creatinine 0.62 Estim Creat Clear Calc 101.2 Estimated GFR > 60 Random Glucose 135 H Fasting Glucose Lactic Acid Calcium 8.2 L Phosphorus 2.8 Magnesium 1.7 Ferritin Total Bilirubin Direct Bilirubin AST ALT Alkaline Phosphatase Ammonia Lactate Dehydrogenase Total Creatine Kinase Troponin I High Sens B-Natriuretic Peptide Total Protein Albumin Lipase Procalcitonin TSH Urine Color Urine Appearance Urine pH Ur Specific [place] Urine Protein Urine Glucose (UA) Urine Ketones Urine Blood Urine Nitrite Ur Leukocyte Esterase Salicylates Urine Opiates Screen Ur Barbiturates Screen Ur Phencyclidine Scrn Ur Amphetamines Screen U Benzodiazepines Scrn Urine Cocaine Screen U Marijuana (THC) Screen Ethyl Alcohol COVID-19 (RAHUL) COVID-19 Clin Com 05/11/20 05/11/20 05/11/20 05:17 15:08 15:08 WBC RBC Hgb Hct MCV MCH MCHC RDW Plt Count MPV Immature Gran % (Auto) Neut % (Auto) Lymph % (Auto) [place] % (Auto) Eos % (Auto) Baso % (Auto) Lymph # (Auto) [place] # (Auto) Eos # (Auto) Baso # (Auto) Abs Immat Gran (auto) Absolute Neuts (auto) Absolute Nucleated RBC Nucleated RBC % (auto) Smear Tech's Comments PT INR APTT D-Dimer ABG pH ABG pCO2 ABG pO2 ABG HCO3 ABG O2 Saturation ABG Base Excess VBG pH 7.42 7.41 VBG pCO2 46 41 VBG pO2 151 72 VBG HCO3 30 27 VBG O2 Saturation 99.0 92.0 VBG Base Excess 5.6 26.6 Oxygen Given Sodium 133 L Potassium 3.2 L Chloride 98 Carbon Dioxide 27 Anion Gap 11 L BUN 18 H Creatinine 0.63 Estim Creat Clear Calc 99.6 Estimated GFR > 60 Random Glucose 139 H Fasting Glucose Lactic Acid Calcium 8.4 Phosphorus Magnesium 1.7 Ferritin Total Bilirubin Direct Bilirubin AST ALT Alkaline Phosphatase Ammonia Lactate Dehydrogenase Total Creatine Kinase Troponin I High Sens B-Natriuretic Peptide Total Protein Albumin Lipase Procalcitonin TSH Urine Color Urine Appearance Urine pH Ur Specific [place] Urine Protein Urine Glucose (UA) Urine Ketones Urine Blood Urine Nitrite Ur Leukocyte Esterase Salicylates Urine Opiates Screen Ur Barbiturates Screen Ur Phencyclidine Scrn Ur Amphetamines Screen U Benzodiazepines Scrn Urine Cocaine Screen U Marijuana (THC) Screen Ethyl Alcohol COVID-19 (RAHUL) COVID-19 [employer] 05/11/20 05/12/20 05/12/20 20:26 05:15 05:15 WBC RBC Hgb Hct MCV MCH MCHC RDW Plt Count MPV Immature Gran % (Auto) Neut % (Auto) Lymph % (Auto) [place] % (Auto) Eos % (Auto) Baso % (Auto) Lymph # (Auto) [place] # (Auto) Eos # (Auto) Baso # (Auto) Abs Immat Gran (auto) Absolute Neuts (auto) Absolute Nucleated RBC Nucleated RBC % (auto) Smear Tech's Comments PT 11.2 INR 0.9 APTT 26.0 D-Dimer 444 ABG pH ABG pCO2 ABG pO2 ABG HCO3 ABG O2 Saturation ABG Base Excess VBG pH 7.38 VBG pCO2 38 VBG pO2 57 VBG HCO3 23 VBG O2 Saturation 84.0 VBG Base Excess -1.4 Oxygen Given Sodium 132 L Potassium 4.3 D Chloride 103 Carbon Dioxide 22 Anion Gap 11 L BUN 17 H Creatinine 0.60 Estim Creat Clear Calc 104.6 Estimated GFR > 60 Random Glucose 134 H Fasting Glucose Lactic Acid Calcium 8.6 Phosphorus 2.3 L Magnesium 1.7 Ferritin Total Bilirubin 0.4 Direct Bilirubin 0.4 AST 26 D ALT 26 Alkaline Phosphatase 47 D Ammonia Lactate Dehydrogenase 171 Total Creatine Kinase 33 L D Troponin I High Sens B-Natriuretic Peptide Total Protein 5.2 L Albumin 3.2 L Lipase Procalcitonin TSH Urine Color Urine Appearance Urine pH Ur Specific [place] Urine Protein Urine Glucose (UA) Urine Ketones Urine Blood Urine Nitrite Ur Leukocyte Esterase Salicylates Urine Opiates Screen Ur Barbiturates Screen Ur Phencyclidine Scrn Ur Amphetamines Screen U Benzodiazepines Scrn Urine Cocaine Screen U Marijuana (THC) Screen Ethyl Alcohol COVID-19 (RAHUL) COVID-19 [employer] 05/12/20 05/12/20 05/13/20 05:15 05:15 05:34 WBC 7.7 RBC 3.23 L Hgb 10.7 L Hct 30.7 L MCV 95.0 MCH 33.1 H MCHC 34.9 RDW 14.4 Plt Count 160 MPV 9.8 Immature Gran % (Auto) 0.8 H Neut % (Auto) 84.1 H Lymph % (Auto) 9.6 L [place] % (Auto) 5.4 Eos % (Auto) 0.0 Baso % (Auto) 0.1 Lymph # (Auto) 0.7 L [place] # (Auto) 0.4 Eos # (Auto) 0.0 Baso # (Auto) 0.0 Abs Immat Gran (auto) 0.06 H Absolute Neuts (auto) 6.5 Absolute Nucleated RBC 0.000 Nucleated RBC % (auto) 0.0 Smear Tech's Comments PT INR APTT D-Dimer ABG pH ABG pCO2 ABG pO2 ABG HCO3 ABG O2 Saturation ABG Base Excess VBG pH 7.40 7.39 VBG pCO2 35 39 VBG pO2 134 50 VBG HCO3 22 24 VBG O2 Saturation 99.0 76.0 VBG Base Excess -2.0 -0.3 Oxygen Given Sodium Potassium Chloride Carbon Dioxide Anion Gap BUN Creatinine Estim Creat Clear Calc Estimated GFR Random Glucose Fasting Glucose Lactic Acid Calcium Phosphorus Magnesium Ferritin Total Bilirubin Direct Bilirubin AST ALT Alkaline Phosphatase Ammonia Lactate Dehydrogenase Total Creatine Kinase Troponin I High Sens B-Natriuretic Peptide Total Protein Albumin Lipase Procalcitonin TSH Urine Color Urine Appearance Urine pH Ur Specific [place] Urine Protein Urine Glucose (UA) Urine Ketones Urine Blood Urine Nitrite Ur Leukocyte Esterase Salicylates Urine Opiates Screen Ur Barbiturates Screen Ur Phencyclidine Scrn Ur Amphetamines Screen U Benzodiazepines Scrn Urine Cocaine Screen U Marijuana (THC) Screen Ethyl Alcohol COVID-19 (RAHUL) COVID-19 [employer] 05/13/20 05/13/20 05/14/20 05:35 05:35 05:25 WBC RBC Hgb Hct MCV MCH MCHC RDW Plt Count MPV Immature Gran % (Auto) Neut % (Auto) Lymph % (Auto) [place] % (Auto) Eos % (Auto) Baso % (Auto) Lymph # (Auto) [place] # (Auto) Eos # (Auto) Baso # (Auto) Abs Immat Gran (auto) Absolute Neuts (auto) Absolute Nucleated RBC Nucleated RBC % (auto) Smear Tech's Comments PT 11.2 11.5 INR 0.9 1.0 APTT D-Dimer [id number] ABG pH ABG pCO2 ABG pO2 ABG HCO3 ABG O2 Saturation ABG Base Excess VBG pH VBG pCO2 VBG pO2 VBG HCO3 VBG O2 Saturation VBG Base Excess Oxygen Given Sodium 133 L Potassium 4.0 Chloride 102 Carbon Dioxide 23 Anion Gap 12 BUN 18 H Creatinine 0.61 Estim Creat Clear Calc 102.9 Estimated GFR > 60 Random Glucose 100 Fasting Glucose Lactic Acid Calcium 9.0 Phosphorus 1.7 L Magnesium 1.6 Ferritin Total Bilirubin Direct Bilirubin AST ALT Alkaline Phosphatase Ammonia Lactate Dehydrogenase Total Creatine Kinase Troponin I High Sens B-Natriuretic Peptide Total Protein Albumin Lipase Procalcitonin TSH Urine Color Urine Appearance Urine pH Ur Specific [place] Urine Protein Urine Glucose (UA) Urine Ketones Urine Blood Urine Nitrite Ur Leukocyte Esterase Salicylates Urine Opiates Screen Ur Barbiturates Screen Ur Phencyclidine Scrn Ur Amphetamines Screen U Benzodiazepines Scrn Urine Cocaine Screen U Marijuana (THC) Screen Ethyl Alcohol COVID-19 ([facility]) COVID-19 Clin Com 05/14/20 05/14/20 05/15/20 05:25 05:25 06:13 WBC RBC Hgb Hct MCV MCH MCHC RDW Plt Count MPV Immature Gran % (Auto) Neut % (Auto) Lymph % (Auto) [place] % (Auto) Eos % (Auto) Baso % (Auto) Lymph # (Auto) [place] # (Auto) Eos # (Auto) Baso # (Auto) Abs Immat Gran (auto) Absolute Neuts (auto) Absolute Nucleated RBC Nucleated RBC % (auto) Smear Tech's Comments PT 11.4 INR 1.0 APTT D-Dimer 493 ABG pH ABG pCO2 ABG pO2 ABG HCO3 ABG O2 Saturation ABG Base Excess VBG pH 7.44 H VBG pCO2 40 VBG pO2 44 VBG HCO3 27 VBG O2 Saturation 66.0 VBG Base Excess 3.6 Oxygen Given Sodium 134 L Potassium 3.3 Chloride 99 Carbon Dioxide 27 Anion Gap 11 L BUN 20 H Creatinine 0.62 Estim Creat Clear Calc 101.2 Estimated GFR > 60 Random Glucose 102 Fasting Glucose Lactic Acid Calcium 8.5 Phosphorus 3.2 Magnesium 1.4 L* Ferritin Total Bilirubin Direct Bilirubin AST ALT Alkaline Phosphatase Ammonia Lactate Dehydrogenase Total Creatine Kinase Troponin I High Sens B-Natriuretic Peptide Total Protein Albumin Lipase Procalcitonin TSH Urine Color Urine Appearance Urine pH Ur Specific [place] Urine Protein Urine Glucose (UA) Urine Ketones Urine Blood Urine Nitrite Ur Leukocyte Esterase Salicylates Urine Opiates Screen Ur Barbiturates Screen Ur Phencyclidine Scrn Ur Amphetamines Screen U Benzodiazepines Scrn Urine Cocaine Screen U Marijuana (THC) Screen Ethyl Alcohol COVID-19 ([facility]) COVID-19 Clin Com 05/15/20 05/15/20 05/16/20 06:13 11:09 06:20 WBC RBC Hgb Hct MCV MCH MCHC RDW Plt Count MPV Immature Gran % (Auto) Neut % (Auto) Lymph % (Auto) [place] % (Auto) Eos % (Auto) Baso % (Auto) Lymph # (Auto) [place] # (Auto) Eos # (Auto) Baso # (Auto) Abs Immat Gran (auto) Absolute Neuts (auto) Absolute Nucleated RBC Nucleated RBC % (auto) Smear Tech's Comments PT 11.9 INR 1.0 APTT D-Dimer 487 ABG pH ABG pCO2 ABG pO2 ABG HCO3 ABG O2 Saturation ABG Base Excess VBG pH 7.42 VBG pCO2 53 VBG pO2 39 VBG HCO3 35 VBG O2 Saturation 58.0 VBG Base Excess 9.7 Oxygen Given Sodium 138 Potassium 3.5 Chloride 99 Carbon Dioxide 30 H Anion Gap 13 BUN 26 H Creatinine 0.67 Estim Creat Clear Calc 93.7 Estimated GFR > 60 Random Glucose 113 Fasting Glucose Lactic Acid Calcium 8.8 Phosphorus 4.1 Magnesium 1.8 Ferritin Total Bilirubin Direct Bilirubin AST ALT Alkaline Phosphatase Ammonia Lactate Dehydrogenase Total Creatine Kinase Troponin I High Sens B-Natriuretic Peptide Total Protein Albumin Lipase Procalcitonin TSH Urine Color Urine Appearance Urine pH Ur Specific [place] Urine Protein Urine Glucose (UA) Urine Ketones Urine Blood Urine Nitrite Ur Leukocyte Esterase Salicylates Urine Opiates Screen Ur Barbiturates Screen Ur Phencyclidine Scrn Ur Amphetamines Screen U Benzodiazepines Scrn Urine Cocaine Screen U Marijuana (THC) Screen Ethyl Alcohol COVID-19 ([facility]UL) COVID-19 [employer] Com 05/16/20 05/17/20 05/17/20 06:20 07:24 07:24 WBC RBC Hgb Hct MCV MCH MCHC RDW Plt Count MPV Immature Gran % (Auto) Neut % (Auto) Lymph % (Auto) [place] % (Auto) Eos % (Auto) Baso % (Auto) Lymph # (Auto) [place] # (Auto) Eos # (Auto) Baso # (Auto) Abs Immat Gran (auto) Absolute Neuts (auto) Absolute Nucleated RBC Nucleated RBC % (auto) Smear Tech's Comments PT 11.3 INR 1.0 APTT D-Dimer 452 ABG pH ABG pCO2 ABG pO2 ABG HCO3 ABG O2 Saturation ABG Base Excess VBG pH VBG pCO2 VBG pO2 VBG HCO3 VBG O2 Saturation VBG Base Excess Oxygen Given Sodium 139 141 Potassium 3.4 3.4 Chloride 101 102 Carbon Dioxide 31 H 32 H Anion Gap 10 L 10 L BUN 20 H 18 H Creatinine 0.62 0.62 Estim Creat Clear Calc 101.2 101.2 Estimated GFR > 60 > 60 Random Glucose 98 100 Fasting Glucose Lactic Acid Calcium 8.8 9.0 Phosphorus 3.4 3.6 Magnesium 2.0 1.8 Ferritin Total Bilirubin Direct Bilirubin AST ALT Alkaline Phosphatase Ammonia Lactate Dehydrogenase Total Creatine Kinase Troponin I High Sens B-Natriuretic Peptide Total Protein Albumin Lipase Procalcitonin TSH Urine Color Urine Appearance Urine pH Ur Specific [place] Urine Protein Urine Glucose (UA) Urine Ketones Urine Blood Urine Nitrite Ur Leukocyte Esterase Salicylates Urine Opiates Screen Ur Barbiturates Screen Ur Phencyclidine Scrn Ur Amphetamines Screen U Benzodiazepines Scrn Urine Cocaine Screen U Marijuana (THC) Screen Ethyl Alcohol COVID-19 ([facility]) COVID-19 Clin Com 05/17/20 07:24 WBC RBC Hgb Hct MCV MCH MCHC RDW Plt Count MPV Immature Gran % (Auto) Neut % (Auto) Lymph % (Auto) [place] % (Auto) Eos % (Auto) Baso % (Auto) Lymph # (Auto) [place] # (Auto) Eos # (Auto) Baso # (Auto) Abs Immat Gran (auto) Absolute Neuts (auto) Absolute Nucleated RBC Nucleated RBC % (auto) Smear Tech's Comments PT INR APTT D-Dimer ABG pH ABG pCO2 ABG pO2 ABG HCO3 ABG O2 Saturation ABG Base Excess VBG pH 7.52 H VBG pCO2 48 VBG pO2 75 VBG HCO3 39 VBG O2 Saturation 93.0 VBG Base Excess 15.2 Oxygen Given Sodium Potassium Chloride Carbon Dioxide Anion Gap BUN Creatinine Estim Creat Clear Calc Estimated GFR Random Glucose Fasting Glucose Lactic Acid Calcium Phosphorus Magnesium Ferritin Total Bilirubin Direct Bilirubin AST ALT Alkaline Phosphatase Ammonia Lactate Dehydrogenase Total Creatine Kinase Troponin I High Sens B-Natriuretic Peptide Total Protein Albumin Lipase Procalcitonin TSH Urine Color Urine Appearance Urine pH Ur Specific [place] Urine Protein Urine Glucose (UA) Urine Ketones Urine Blood Urine Nitrite Ur Leukocyte Esterase Salicylates Urine Opiates Screen Ur Barbiturates Screen Ur Phencyclidine Scrn Ur Amphetamines Screen U Benzodiazepines Scrn Urine Cocaine Screen U Marijuana (THC) Screen Ethyl Alcohol COVID-19 ([facility]) COVID-19 Clin Com Discharge Plan Discharge Patient Disposition: Xfer SNF Referrals: Physician,Unknown [Primary Care Provider] - Discharge Medications: New magnesium oxide 400 mg (241.3 mg magnesium) Tablet 400 mg PO BIDPC Qty: 60 RF: 0 thiamine mononitrate (vit B1) 100 mg Tablet 100 mg PO DAILY Qty: 30 RF: 0 Continued atorvastatin 40 mg tablet 40 mg PO DAILY Qty: 30 RF: 4 lisinopril 10 mg tablet 10 mg PO DAILY Qty: 90 RF: 2 cyanocobalamin (vitamin B-12) 1,000 mcg Tablet 1,000 mcg PO DAILY RF: 0 aspirin 81 mg Tablet,Delayed Release (Dr/Ec) 81 mg PO DAILY RF: 0 folic acid 1 mg Tablet 1 mg PO DAILY RF: 0 fluticasone propionate 220 mcg/actuation Hfa Aerosol Inhaler 2 puff INHALATION BID RF: 0 albuterol sulfate [ProAir HFA] 90 mcg/actuation Hfa Aerosol Inhaler 2 puff INHALATION Q6H PRN (Reason: Shortness Of Breath Or Wheezing) RF: 0 cholecalciferol (vitamin D3) [Vitamin D3] 50 mcg (2,000 unit) Capsule 50 mcg PO DAILY RF: 0 omega 9-[id number] oil [Fish Oil] 1,000 mg (120 mg-180 mg) Capsule 1 cap PO BID RF: 0 Spiriva Respimat 2.5 mcg/actuation Mist 2 puff INHALATION DAILY RF: 0 Discharge Orders: Discharge Order (Routine); Ordered 05/17/20 Ordered By: Annamaria García Diet: advance to usual diet Activity on Discharge: As tolerated Stand Alone Forms: Patient Portal Discharge page Care Plan Goals: Read below Health Concerns: Read below Plan of Treatment: You were admitted to the hospital for evaluation of altered mentation . You were evaluated in the emergency and started on medication for alcohol withdrawal. You had difficulty breathing and placed on BiPAP machine with good response. You were evaluated by neurologist and started on treatment for delirium tremens with good response as your mentation improved. Your healthcare proxy was provoked as a result of that. Continue magnesium and thiamine as prescribed
--- NOTE | 2020-05-17 11:32 | MHC.INPTTRAN ---
Pt admitted with encephalopathy, pt has improved. Still has confusion and disorientation. Restless and impulsive at times. 1 assist with walker. Incontinent at times. Meds crushed with applesauce. Redness buttocks with stage 2 coccyx. Triad applied. Vitals WNL.
[2020-05-17 13:47] VITALS: PULSE 78; O2SAT 92
== END 2020-05-17 14:00 | disposition skilled nursing facility (03) | DRG 190 ==
LOC: HO.ED 14:20 → HO.EDOVER 17:33 → HO.IMC 17:46 → HO.ICU 05-10 03:39 → HO.S3 05-14 19:01
PROVIDERS: Anesthesiology; Internal Medicine; Internal Medicine Cardiovascular Disease; Nurse Practitioner Acute Care; Physician Assistant; Physician Assistant Medical; Admitting Provider Internal Medicine; Emergency Provider Emergency Medicine; PCP Nurse Practitioner Family; Visit Provider Student in an Organized Health Care Education/Training Program
DX: J43.8 Other emphysema (principal); J96.01 Acute respiratory failure with hypoxia; G92 Toxic encephalopathy; J96.02 Acute respiratory failure with hypercapnia; E87.1 Hypo-osmolality and hyponatremia; F10.231 Alcohol dependence with withdrawal delirium; E87.3 Alkalosis; E51.2 Wernicke's encephalopathy; E78.5 Hyperlipidemia, unspecified; E86.0 Dehydration; Z20.822 Contact with and (suspected) exposure to COVID-19; Z79.51 Long term (current) use of inhaled steroids; Z79.82 Long term (current) use of aspirin; Z79.899 Other long term (current) drug therapy
CPT/HCPCS: 36415; 36600; 70450; 71045; 71250; 74176; 80048; 80076; 80307; 80320; 81003; 82140; 82550; 82728; 82803; 83605; 83615; 83690; 83735; 83880; 84100; 84145; 84443; 84484; 85025; 85379; 85610; 85730; 87040; 87086; 87635; 93005; 94640; 94660; 96361; 96374; 96375; 97116; 97162; 97530; 99231; 99285; 99291; G0480; J0456; J2060; J2543; J2560; J2930; J3411; J3475